=== PATIENT | male | born 1930 | race Caucasian/White ===

== ENCOUNTER 2017-01-31 04:35 | Inpatient (IN) | payer MEDICAID, MEDICARE ==
[2017-01-31] MEDS ORDERED: Albuterol Sulfate 2.5 mg/3 ml Neb ONE (04:55)
[2017-01-31] MEDS ORDERED: Dexamethasone 4 mg/ml Vial ONE ×2 (04:58→05:26)
[2017-01-31] MEDS ORDERED: Magnesium Sulfate 2 GM/100 ML BAG ONE (04:58)
[2017-01-31 05:24] LABS: Sodium 139 mmol/L (135-148)
[2017-01-31 05:24] LABS: #Basophils 0.1 thou/uL (0.0-0.2); #Lymphocytes 1.5 thou/uL (1.20-3.40); #Monocytes 0.7 thou/uL (0.11-0.59); #Neutrophils 3.7 thou/uL (1.40-6.50); %Eosinophils 14.5 % (0.0-10.0); %Lymphocytes 20.9 % (21.0-51.0); %Monocytes 9.7 % (0.0-10.0); Hematocrit 29.7 % (42.0-52.0); Mean Platelet Volume 7.1 fL (7.4-10.4); Red Blood Cell (RBC) Count 3.33 mill/uL (4.70-6.10); White Blood Cell (WBC) Count 6.9 thou/uL (4.8-10.8)
[2017-01-31 05:25] LABS: Mode BIPAP; Modified Allen's Test POSITIVE; Pressure Support 12 cmH2O; Vent NO
[2017-01-31 05:30] LABS: PTT 34.6 SEC (22.9-36.1); Prothrombin Time 14.7 SEC (12.0-14.7)
[2017-01-31 05:43] LABS: ALT (SGPT) 10 U/L (8-55); AST (SGOT) 14 U/L (5-34); Alkaline Phosphatase 65 U/L (40-150); Anion Gap 16 mmol/L (10-20); BUN (Urea Nitrogen) 37 mg/dL (8.4-25.7); Bilirubin, Total 0.5 mg/dL (0.2-1.2); CK (CPK) 80 U/L (30-200); Calc. Creatinine Clearance 0 mL/min (70-130); Carbon Dioxide 23 mmol/L (23-31); Chloride 103 mmol/L (98-107); Estimated GFR-MDRD 34; Lipase 9 U/L (8-78); Protein, Total 7.7 g/dL (5.8-8.1)
[2017-01-31 05:48] LABS: Troponin I 0.032 ng/mL (< 0.028)
[2017-01-31 08:43] LABS: Troponin I 0.028 ng/mL (< 0.028)
--- NOTE | 2017-01-31 09:02 | RAD ---
PORTABLE CHEST: 01/31/2017 PROVIDED CLINICAL HISTORY: Dyspnea. COMPARISON: 08/27/2016 FINDINGS: The cardiac and mediastinal silhouette are unchanged in appearance. Median sternotomy changes are a gain seen. No focal consolidation, pleural fluid, or pneumothorax is apparent. IMPRESSION: No evidence for an acute cardiopulmonary process. POS: OFF
[2017-01-31] MEDS ORDERED: Ondansetron ODT 4 MG TAB PO PRN (11:25)
[2017-01-31] MEDS ORDERED: Senokot 8.6 MG TAB PO PRN (11:25)
[2017-01-31] MEDS ORDERED: Ondansetron HCl/PF 4 MG/2 ML Vial IVP PRN (11:25)
[2017-01-31] MEDS ORDERED: Nitroglycerin 0.4 MG TAB (25 Tab Bottle) PO PRN (11:25)
[2017-01-31] MEDS ORDERED: Artificial Tears 18 DROP/0.9 ML EA EYE PRN (11:30)
[2017-01-31 11:34] LABS: Troponin I 0.048 ng/mL (< 0.028)
[2017-01-31] MEDS ORDERED: Loratadine 10 MG TAB PO PRN (11:35)
[2017-01-31] MEDS ORDERED: Diabetic Tussin 200 MG/10 ML UDCUP PO PRN (11:35)
[2017-01-31] MEDS ORDERED: Eucerin (Mineral Oil/Petrolatum,White) 30 gm Jar TOP PRN (11:35)
--- NOTE | 2017-01-31 11:47 | HP ---
DATE OF ADMISSION: 01/31/2017 PRIMARY CARE PHYSICIAN: Dr. Myers at the [facility]. CHIEF COMPLAINT: Respiratory distress. HISTORY OF PRESENT ILLNESS: Patient is an 87-year-old male with chronic diastolic heart failure, coronary artery disease, and COPD, presented to the emergency room by EMS with the above complaints. At this time, patient is on noninvasive positive pressure ventilation. Not much information is available from the patient. History obtained from the patient and partially from review of old records. Over the last three days, the patient developed gradual worsening shortness of breath along with wheezing. His symptoms continued to progress despite using nebulizer treatments. He denied any orthopnea or leg swelling. No chest pain, palpitations or syncope reported. No fever, chills, or sick contacts reported. He also had some cough productive of thick whitish phlegm. His O2 saturation by EMS was 92% on room air with a pulse rate of 91 with blood pressure of 155/94. The patient was on moderate to severe, respiratory distress requiring noninvasive positive pressure ventilation in the Emergency Room. He received aspirin, Levaquin, magnesium, Decadron and nebulizer treatments in the emergency room. His symptoms have somewhat improved. PAST MEDICAL HISTORY: 1. COPD. 2. Chronic diastolic heart failure with ejection fraction 40%-45%. 3. Moderate to severe mitral regurgitation. 4. Peripheral vascular disease. 5. Chronic atrial fibrillation. 6. History of cerebrovascular accident. 7. GERD. 8. Dementia. 9. Hypertension. 10. Benign prostatic hypertrophy. 11. Coronary artery disease. 12. Hypothyroidism. 13. Chronic anemia. PAST SURGICAL HISTORY: 1. Coronary artery bypass grafting. 2. Right inguinal hernia repair. 3. Cardiac catheterization in 2010. 4. Colonoscopy in 2012. ALLERGIES: Patient is allergic to SIMVASTATIN and EZETIMIBE. CURRENT HOME MEDICATIONS: Patient does not remember any of his home medications. There is no list available from [facility]. SOCIAL HISTORY: He is a former smoker. Currently lives at the [place] [facility]. He denies any current use of alcohol, tobacco or drug use. He makes his own decisions with the help of his family. FAMILY HISTORY: Negative for premature coronary artery disease. REVIEW OF SYSTEMS: Limited due to current respiratory status. Patient is on noninvasive positive pressure ventilation. PHYSICAL EXAMINATION: VITAL SIGNS: As discussed above. He is saturating 99% on noninvasive positive pressure ventilation with blood pressure of 140/58, pulse rate of 71, respiration of 25. GENERAL: An 87-year-old male in mild respiratory distress. His shortness of breath has significantly improved with the above measures. HEENT: Head is atraumatic, normocephalic. Sclerae are anicteric. Moist mucous membranes. No oral lesion. NECK: Supple, no JVD, no neck stiffness. LUNGS: Showed bilateral wheezing with scattered rhonchi. HEART: S1, S2 present. Regular rate and rhythm, no rubs or gallops appreciated. There is 2/6 systolic murmur over the mitral area. ABDOMEN: Soft, nontender, bowel sounds present. EXTREMITIES: Trace edema in bilateral lower extremities. SKIN: Warm and dry. LYMPH NODES: No palpable lymph nodes in the neck. PERIPHERAL VASCULAR: Radial pulses palpable bilaterally. MUSCULOSKELETAL: No joint swelling or tenderness. LABORATORY FINDINGS AND IMAGING: CBC showed WBC 6.9, hemoglobin 9.9, hematocrit 29.7, platelets 183. ABGs showed pH of 7.38, pCO2 44.6, pO2 of 197.9 with bicarbonate of 25.7 on 40% FIO2 noninvasive positive pressure ventilation. Chemistries showed sodium 138, potassium 3.8, chloride 103, bicarbonate 23, BUN 37, creatinine 1.87, glucose 120. Troponins in indeterminate range at 0.032 with CK-MB 1.5. Repeat troponins were normal. BNP was elevated at 143. Baseline creatinine last time was 1.55 with GFR of 43. Chest x-ray by my review showed increase bronchopulmonary markings at the bases. No definite infiltrate was seen. EKG by my review showed sinus rhythm with right bundle branch block with no significant ST-T wave changes. There was left anterior fascicular block. IMPRESSION: 1. Acute hypoxic respiratory failure requiring noninvasive positive pressure ventilation. 2. Acute chronic obstructive pulmonary disease exacerbation. 3. Acute on chronic diastolic heart failure. 4. Chronic kidney disease stage 3. 5. Indeterminate troponins, probably secondary to demand ischemia. 6. Coronary artery disease, status post coronary artery bypass grafting. 7. Chronic anemia. 8. Hypertension. 9. Benign prostatic hypertrophy. 10. Peripheral vascular disease. 11. Paroxysmal atrial fibrillation, currently in sinus rhythm. 12. Gastroesophageal reflux disease. 13. Dementia. 14. Hypothyroidism. 15. Moderate to severe mitral regurgitation. PLAN: The patient will be monitored in the intermediate care unit. If can wean off the noninvasive positive pressure ventilation, we will admit him on telemetry. Gentle diuresis. We will continue nebulizer treatment with steroids and antibiotics. We will assess for home O2 at discharge. We will confirm home medications from the [place] [facility]. Repeat cardiac enzyme was normal. We will repeat labs in a.m. LEVEL OF RISK: High. Plan of care was discussed with the patient. He stated understanding. The patient will require 2-3 days for stabilization. MTDD
[2017-01-31 12:01] LABS: Bilirubin Negative (Negative); Blood, Urine Small (Negative); Glucose, Urine (Dipstick) Negative (Negative); Ketone, Urine Negative (Negative); Nitrite Positive (Negative); Protein, Urine (Dipstick) 30 mg/dL (Neg-Trace); Urobilinogen 0.2 mg/dL (0.2-1.0)
[2017-01-31 12:03] LABS: Bacteria/HPF 4+ HPF (None Seen); Hyaline Casts/LPF 0-3 HYALINE CAST LPF (0-3 Hyaline); Squamous Epithelial 0-3 HPF (0-3)
[2017-01-31] MEDS: Furosemide 20 MG/2 ML VIAL SLOW IVP SCH (13:40)
[2017-01-31] MEDS: Budesonide 0.5 MG/2 ML NEB INH SCH (18:50)
[2017-01-31] MEDS: Simethicone Chewable 80 MG TAB PO SCH ×2 (19:39→21:39)
[2017-01-31] MEDS: Acetaminophen/Codeine 30-300mg Tablet PO PRN (19:47)
[2017-01-31] MEDS: Gabapentin 300 MG CAP PO SCH (20:56)
[2017-01-31] MEDS: Tamsulosin HCl 0.4 MG CAP PO SCH (20:56)
[2017-01-31] MEDS: guaiFENesin ER 600 MG TAB PO SCH (20:56)
[2017-01-31] MEDS: Docusate 100 MG CAP PO SCH (20:56)
[2017-01-31] MEDS: Famotidine 20 MG TAB PO SCH (21:00)
[2017-01-31] MEDS: Polyethylene Glycol 3350 17 GM Packet PO SCH (21:01)
[2017-01-31] MEDS: Acetaminophen 325 MG TAB PO PRN (23:04)
[2017-02-01 05:15] LABS: #Lymphocytes 0.5 thou/uL (1.20-3.40); #Monocytes 0.2 thou/uL (0.11-0.59); #Neutrophils 7.1 thou/uL (1.40-6.50); %Eosinophils 0.1 % (0.0-10.0); %Lymphocytes 6.1 % (21.0-51.0); %Monocytes 2.8 % (0.0-10.0); Hematocrit 26.3 % (42.0-52.0); Mean Platelet Volume 7.6 fL (7.4-10.4); Red Blood Cell (RBC) Count 2.95 mill/uL (4.70-6.10); White Blood Cell (WBC) Count 7.8 thou/uL (4.8-10.8)
[2017-02-01 05:20] LABS: Anion Gap 15 mmol/L (10-20); BUN (Urea Nitrogen) 50 mg/dL (8.4-25.7); BUN/Creatinine Ratio 30.49; Calc. Creatinine Clearance 35 mL/min (70-130); Calcium 8.9 mg/dL (7.8-10.44); Carbon Dioxide 22 mmol/L (23-31); Chloride 103 mmol/L (98-107); Estimated GFR-MDRD 40; Magnesium 2.6 mg/dL (1.6-2.6); Phosphorus 3.6 mg/dL (2.3-4.7)
[2017-02-01] MEDS: Levothyroxine Sodium 25 MCG TAB PO SCH (06:16)
[2017-02-01] MEDS: Furosemide 20 MG/2 ML VIAL SLOW IVP SCH (06:17)
[2017-02-01] MEDS: Enoxaparin Sodium 30 MG/0.3 ML SYRINGE SC SCH (06:17)
[2017-02-01] MEDS: Budesonide 0.5 MG/2 ML NEB INH SCH ×2 (07:39→18:30)
[2017-02-01] MEDS: Acetaminophen 325 MG TAB PO PRN (07:54)
[2017-02-01] MEDS: Gabapentin 300 MG CAP PO SCH ×3 (08:04→21:27)
[2017-02-01] MEDS: Finasteride 5 MG TAB PO SCH (08:05)
[2017-02-01] MEDS: Multivit, Therapeutic 1 TAB PO SCH (08:05)
[2017-02-01] MEDS: guaiFENesin ER 600 MG TAB PO SCH ×2 (08:05→21:28)
[2017-02-01] MEDS: Docusate 100 MG CAP PO SCH ×2 (08:05→21:28)
[2017-02-01] MEDS: Simethicone Chewable 80 MG TAB PO SCH ×4 (08:05→22:53)
[2017-02-01] MEDS: Polyethylene Glycol 3350 17 GM Packet PO SCH ×2 (10:10→21:28)
[2017-02-01] MEDS: Acetaminophen/Codeine 30-300mg Tablet PO PRN (10:27)
--- NOTE | 2017-02-01 11:34 | PQF ---
DATE: 02-01-17 ATTN: DR. ESTEFANIA SIHRLEY Please provide a response below if a more specific term indicating a diagnosis and/or acuity level for this condition can be identified. Please exercise your independent, professional judgment in responding to the clarification form. Clinical indicators are provided at the top of this form for your review. Thank you. [ ] UTI Acuity:[ ] Acute[ ] Chronic[ ] Acute on Chronic Site: [ ] Kidney[ ] Ureter[ ] Bladder[ ] Urethra [ ] Other site [ ] Unable to determine [ ] Does not apply to this patient [ ] Unable to determine [ ] Other diagnosis: The following CLINICAL INDICATORS - SIGNS / SYMPTOMS are present in the medical record: URINALYSIS 01-31-17: URINE PROTEIN: 30 H URINE BLOOD: SMALL H URINE NITRITE: POSITIVE H UR LEUKOCYTE ESTERASE: LARGE H URINE WBC: GREATER THAN 50-TNTC H URINE BACTERIA: 4+ H RISKS: ER DOCUMENTATION: PT IN DIAPER FROM [facility], ON PO LASIX TREATMENT: ER AND MAR ( 02-01-17): LEVAQUIN (This form is maintained as a part of the permanent medical record) 2014 [employer]. All Rights Reserved [email or web address] [email or web address] Office: [phone] Thanks Daren MERCADO
[2017-02-01] MEDS ORDERED: Doxycycline 100 MG CAP PO SCH (12:00)
--- NOTE | 2017-02-01 15:22 | PDOC.PN ---
- Subjective Encounter Start Date: 02/01/17 Encounter Start Time: 11:00 Patient seen and examined. SOB improving. No overnight events - Objective Resuscitation Status: Resuscitation Status FULL:Full Resuscitation MAR Reviewed: Yes Vital Signs & Weight: Vital Signs (12 hours) Temp Pulse Pulse Pulse Pulse Resp BP 02/01/17 13:58 71 15 02/01/17 11:30 67 18 02/01/17 09:43 73 83 90 127/63 02/01/17 08:05 97.9 F 71 16 02/01/17 07:39 71 16 02/01/17 07:35 97.9 F 76 18 02/01/17 04:15 97.8 F 77 16 02/01/17 04:01 BP BP BP Pulse Ox 02/01/17 13:58 99 02/01/17 11:30 114/64 97 02/01/17 09:43 138/66 128/61 02/01/17 08:05 100 02/01/17 07:39 100 02/01/17 07:35 127/72 99 02/01/17 04:15 129/63 98 02/01/17 04:01 99 Weight Admit Weight 177 lb 4.016 oz Weight 185 lb 9.92 oz I&O: 01/31/17 02/01/17 02/02/17 06:59 06:59 06:59 Intake Total 1202.5 Output Total 850 Balance 352.5 Result Diagrams: 02/01/17 04:19 02/02/17 05:01 EKG Reviewed by me: Yes (Tele SR) Phys Exam - Physical Examination Constitutional: NAD Respiratory: no rales, no rhonchi, wheezing present Cardiovascular: RRR, no rub Gastrointestinal: soft, non-tender, positive bowel sounds Musculoskeletal: edema present (LLE > RLE) Neurological: non-focal, moves all 4 limbs Psychiatric: A&O x 3 Dx/Plan - Plan IMPRESSION: 1. Acute hypoxic respiratory failure requiring noninvasive positive pressure ventilation. 2. Acute chronic obstructive pulmonary disease exacerbation. improving 3. Acute on chronic diastolic heart failure. improving 4. Chronic kidney disease stage 3. 5. Indeterminate troponins, probably secondary to demand ischemia. 6. Coronary artery disease, status post coronary artery bypass grafting. 7. UTI. 8. Hypertension. 9. Benign prostatic hypertrophy. 10. Peripheral vascular disease. 11. Paroxysmal atrial fibrillation, currently in sinus rhythm. 12. Gastroesophageal reflux disease. 13. Dementia. 14. Hypothyroidism. 15. Moderate to severe mitral regurgitation. 16. Chronic anemia. 17. Chronic Left heel ulcer Stage 3 - present on admission - Wound care following PLAN: * Cont Atbx/Nebs * Change Lasix to PO * Add urine culture * AM labs * Cont current meds as below * Doppler B/L LE Review of Systems - Review of Systems Constitutional: negative: Fever, Chills, Sweats, Weakness, Malaise, Other Respiratory: Cough, Dry, Wheezing. negative: Shortness of Breath, Hemoptysis, SOB with Excertion, Pleuritic Pain Cardiovascular: negative: Chest Pain, Palpitations, Orthopnea, Paroxysmal Noc. Dyspnea, Edema, Light Headedness, Other Gastrointestinal: negative: Nausea, Vomiting, Abdominal Pain, Diarrhea, Constipation, Melena, Hematochezia, Other Genitourinary: negative: Dysuria, Frequency, Incontinence, Hematuria, Retention , Other - Medications/Allergies Allergies/Adverse Reactions: Allergies Allergy/AdvReac Type Severity Reaction Status Date / Time ezetimibe [From Vytorin] AdvReac Verified 11/23/16 13:14 simvastatin [From Vytorin] AdvReac Verified 11/23/16 13:14 Medications: Current Medications Acetaminophen (Tylenol) 650 mg PO Q4H PRN PRN Reason: Headache/Fever or Pain Last Admin: 02/01/17 07:54 Dose: 650 mg Acetaminophen/Codeine Phosphate (Tylenol #3) 1 tab PO Q6HR PRN PRN Reason: Severe Pain (7-10) Last Admin: 02/01/17 10:27 Dose: 1 tab Albuterol/Ipratropium (Duoneb) 3 ml NEB [id number] RAGHU Last Admin: 02/01/17 13:59 Dose: Not Given Albuterol/Ipratropium (Duoneb) 3 ml NEB Q2H PRN PRN Reason: SOB &/or Wheezing Last Admin: 01/31/17 17:16 Dose: 3 ml Artificial Tears (Tears Naturale) 0 drop EA EYE PRN PRN PRN Reason: Dry Eyes Aspirin (Aspirin Chewable) 81 mg PO DAILY RAGHU Last Admin: 02/01/17 08:05 Dose: 81 mg Budesonide (Pulmicort Neb Solution) 0.5 mg INH BID-RT [facility]AGHU Last Admin: 02/01/17 07:39 Dose: 0.5 mg Docusate Sodium (Colace) 100 mg PO BID [facility] Last Admin: 02/01/17 08:05 Dose: 100 mg Doxycycline Hyclate (Vibramycin) 100 mg PO BID [facility] Enoxaparin Sodium (Lovenox) 30 mg SC 0600 [facility] Last Admin: 02/01/17 06:17 Dose: 30 mg Famotidine (Pepcid) 20 mg PO 2100 [facility] Last Admin: 01/31/17 21:00 Dose: 20 mg Finasteride (Proscar) 5 mg PO DAILY [facility] Last Admin: 02/01/17 08:05 Dose: 5 mg Furosemide (Lasix) 40 mg PO DAILY-AC [facility] Gabapentin (Neurontin) 600 mg PO TID [facility] Last Admin: 02/01/17 14:23 Dose: 600 mg Guaifenesin (Robitussin Sf) 200 mg PO Q4H PRN PRN Reason: Cough Guaifenesin (Mucinex) 600 mg PO Q12HR [facility] Last Admin: 02/01/17 08:05 Dose: 600 mg Hydralazine HCl (Apresoline) 10 mg SLOW IVP Q4H PRN PRN Reason: SBP Greater Than 180 Levofloxacin 500 mg/ Device 100 mls @ 100 mls/hr IVPB 0600 [facility] Last Admin: 02/01/17 06:17 Dose: 100 mls Isosorbide Mononitrate (Imdur Er) 30 mg PO DAILY [facility] Last Admin: 02/01/17 08:04 Dose: 30 mg Levothyroxine Sodium (Synthroid) 25 mcg PO 0600 [facility] Last Admin: 02/01/17 06:16 Dose: 25 mcg Loratadine (Claritin) 10 mg PO DAILYPRN PRN PRN Reason: Sinus Symptoms Methylprednisolone Sodium Succinate (Solu-Medrol) 20 mg IVP Q8HR [facility] Stop: 02/01/17 23:59 Last Admin: 02/01/17 14:23 Dose: 20 mg Mineral Oil/White Petrolatum (Eucerin Cream) 0 gm TOP BIDPRN PRN PRN Reason: Dry Skin Multivitamins (Theragran) 1 tab PO DAILY [facility] Last Admin: 02/01/17 08:05 Dose: 1 tab Nitroglycerin (Nitrostat) 0.4 mg PO Q5MIN PRN PRN Reason: Chest Pain Ondansetron HCl (Zofran Odt) 4 mg PO Q6H PRN PRN Reason: Nausea/Vomiting Ondansetron HCl (Zofran) 4 mg IVP Q6H PRN PRN Reason: Nausea/Vomiting Polyethylene Glycol (Miralax) 17 gm PO BID [facility] Last Admin: 02/01/17 10:10 Dose: 17 gm Prednisone (Prednisone) 20 mg PO [facility]ID[facility] Saccharomyces Boulardii (Florastor) 250 mg PO [facility] Senna (Senokot) 2 tab PO HSPRN PRN PRN Reason: Constipation Simethicone (Mylicon Chewable) [address] [facility] Last Admin: 02/01/17 12:44 Dose: 80 mg Sodium Chloride (Flush - Normal Saline) 10 ml IVF PRN PRN PRN Reason: Saline Flush Last Admin: 01/31/17 13:40 Dose: 10 ml Tamsulosin HCl (Flomax) 0.4 mg PO [facility] Last Admin: 01/31/17 20:56 Dose: 0.4 mg
--- NOTE | 2017-02-01 17:11 | ULT ---
BILATERAL LOWER EXTREMITY VENOUS DOPPLER ULTRASOUND: 02/01/17 HISTORY: Bilateral lower extremity edema. TECHNIQUE: Sethi scale ultrasound with color flow and spectral doppler imaging of the deep venous systems of the lower extremity is performed bilaterally. FINDINGS: There is good flow, compression, and augmentation noted in the common femoral, femoral, deep femoral , popliteal, posterior tibial, and greater saphenous veins on either side. IMPRESSION: No evidence of DVT in either lower extremity. POS: [place]
[2017-02-01] MEDS: Doxycycline 100 MG CAP PO SCH (21:27)
[2017-02-01] MEDS: Saccharomyces boulardii 250 MG CAP PO SCH (21:27)
[2017-02-01] MEDS: Famotidine 20 MG TAB PO SCH (21:27)
[2017-02-01] MEDS: Tamsulosin HCl 0.4 MG CAP PO SCH (21:28)
[2017-02-02] MEDS: Levothyroxine Sodium 25 MCG TAB PO SCH (05:20)
[2017-02-02] MEDS: Enoxaparin Sodium 30 MG/0.3 ML SYRINGE SC SCH (05:20)
[2017-02-02 06:05] LABS: Anion Gap 11 mmol/L (10-20); BUN (Urea Nitrogen) 49 mg/dL (8.4-25.7); BUN/Creatinine Ratio 30.63; Calc. Creatinine Clearance 37 mL/min (70-130); Calcium 8.9 mg/dL (7.8-10.44); Carbon Dioxide 25 mmol/L (23-31); Chloride 103 mmol/L (98-107); Estimated GFR-MDRD 41; Phosphorus 3.2 mg/dL (2.3-4.7)
[2017-02-02] MEDS: Budesonide 0.5 MG/2 ML NEB INH SCH ×2 (07:00→18:13)
[2017-02-02] MEDS: Furosemide 40 MG TAB PO SCH (08:29)
[2017-02-02] MEDS: predniSONE 20 MG TAB PO SCH ×2 (08:30→17:45)
[2017-02-02] MEDS: Multivit, Therapeutic 1 TAB PO SCH (08:30)
[2017-02-02] MEDS: Polyethylene Glycol 3350 17 GM Packet PO SCH ×2 (08:30→20:58)
[2017-02-02] MEDS: Finasteride 5 MG TAB PO SCH (08:31)
[2017-02-02] MEDS: guaiFENesin ER 600 MG TAB PO SCH ×2 (08:31→20:57)
[2017-02-02] MEDS: Gabapentin 300 MG CAP PO SCH ×3 (08:31→20:57)
[2017-02-02] MEDS: Simethicone Chewable 80 MG TAB PO SCH ×4 (08:31→21:02)
[2017-02-02] MEDS: Docusate 100 MG CAP PO SCH ×2 (08:31→20:57)
[2017-02-02] MEDS: Doxycycline 100 MG CAP PO SCH ×2 (08:31→20:57)
--- NOTE | 2017-02-02 09:53 | PQF ---
DATE: 02-02-17 ATTN: DR. ESTEFANIA SHIRLEY Please provide a response below if a more specific term indicating a diagnosis and/or acuity level for this condition can be identified. Please exercise your independent, professional judgment in responding to the clarification form. I (concur) with the Wound Care findings as stated above. [ ] Decubitus Pressure Ulcer [ ] Stasis Ulcer [ ] Gangrene present [ ] Yes [ ] No [ ] No decubitus or pressure ulcer diagnosis [ ] Deep tissue injury [ ] Unstageable / Unable to determine [ ] Does not apply to this patient [ ] Other diagnosis: The following CLINICAL INDICATORS - SIGNS / SYMPTOMS are present in the medical record: PN DR. SHIRLEY 02-01-17: CHRONIC LEFT HEEL ULCER-WOUND CARE FOLLOWING WOUND CARE ASSESSMENT: HEALING STAGE 3 PRESSURE ULCER TO L HEEL RISKS: *ER DOCUMENTATION: FROM INTERMEDIATE * H&P: HX OF CVA, COPD, DEMENTIA * WOUND CARE CONSULT 02-01-17: IMMOBILITY, PVD, TREATMENTS: WOUND CARE CONSULT 02-01-17: LOW AIR LOSS MATTRESS, DRESSING CHANGES, WOUND IRRIGATION/CLEANING (This form is maintained as a part of the permanent medical record) 2014 [employer]. All Rights Reserved [email or web address] [email or web address] Office: [phone] Thanks Daren MERCADO
[2017-02-02] MEDS ORDERED: Diabetic Tussin 200 MG/10 ML UDCUP PO PRN (13:38)
--- NOTE | 2017-02-02 13:39 | PDOC.PN ---
- Subjective Encounter Start Date: 02/02/17 Encounter Start Time: 11:30 Patient seen and examined. No new complaints. No overnight events. SOB improving. - Objective Resuscitation Status: Resuscitation Status FULL:Full Resuscitation MAR Reviewed: Yes Vital Signs & Weight: Vital Signs (12 hours) Temp Pulse Pulse Pulse Resp BP BP 02/02/17 12:00 97.9 F 67 20 02/02/17 10:25 67 16 02/02/17 08:36 81 70 145/78 H 122/69 02/02/17 08:00 97.4 F L 64 14 02/02/17 07:36 97.4 F L 64 14 02/02/17 07:00 71 16 02/02/17 05:05 02/02/17 04:00 02/02/17 02:40 70 18 BP Pulse Ox Pulse Ox Pulse Ox 02/02/17 12:00 124/63 98 02/02/17 10:25 100 02/02/17 08:36 94 L 99 02/02/17 08:00 02/02/17 07:36 126/62 99 02/02/17 07:00 100 02/02/17 05:05 99 02/02/17 04:00 131/65 65 L 02/02/17 02:40 99 Weight Admit Weight 177 lb 4.016 oz Weight 185 lb 6.4 oz I&O: 02/01/17 02/02/17 02/03/17 06:59 06:59 06:59 Intake Total 1202.5 2000 240 Output Total 850 1375 Balance 352.5 625 240 Result Diagrams: 02/01/17 04:19 02/02/17 05:01 Radiology Reviewed by me: No (Doppler - neg) EKG Reviewed by me: Yes (Tele SR) Phys Exam - Physical Examination Constitutional: NAD Respiratory: no wheezing, no rales Scat rhonchi Cardiovascular: RRR, no rub Gastrointestinal: soft, non-tender, positive bowel sounds Musculoskeletal: edema present (LLE) Neurological: non-focal, moves all 4 limbs Dx/Plan - Plan IMPRESSION: 1. Acute hypoxic respiratory failure requiring noninvasive positive pressure ventilation. 2. Acute chronic obstructive pulmonary disease exacerbation. improving 3. Acute on chronic diastolic heart failure. improving 4. Chronic kidney disease stage 3. 5. Indeterminate troponins, probably secondary to demand ischemia. 6. Coronary artery disease, status post coronary artery bypass grafting. 7. UTI. GNR on urine culture. Sens pending. Blood Cultures negative 8. Hypertension. 9. Benign prostatic hypertrophy. 10. Peripheral vascular disease. 11. Paroxysmal atrial fibrillation, currently in sinus rhythm. 12. Gastroesophageal reflux disease. 13. Dementia. 14. Hypothyroidism. 15. Moderate to severe mitral regurgitation. 16. Chronic anemia. 17. Chronic Left heel ulcer Stage 3 - present on admission - Wound care following PLAN: * Await urine cultures * Cont Atbx/Nebs/Mucolytics * Cont Lasix * Cont current meds as below * Doppler B/L LE - negative for DVT Review of Systems - Review of Systems Constitutional: negative: Fever, Chills, Sweats, Weakness, Malaise, Other Respiratory: Cough, Dry, SOB with Excertion. negative: Shortness of Breath, Hemoptysis, Pleuritic Pain, Sputum, Wheezing Cardiovascular: negative: Chest Pain, Palpitations, Orthopnea, Paroxysmal Noc. Dyspnea, Edema, Light Headedness, Other Gastrointestinal: negative: Nausea, Vomiting, Abdominal Pain, Diarrhea, Constipation, Melena, Hematochezia, Other - Medications/Allergies Allergies/Adverse Reactions: Allergies Allergy/AdvReac Type Severity Reaction Status Date / Time ezetimibe [From Vytorin] AdvReac Verified 11/23/16 13:14 simvastatin [From Vytorin] AdvReac Verified 11/23/16 13:14 Medications: Current Medications Acetaminophen (Tylenol) 650 mg PO Q4H PRN PRN Reason: Headache/Fever or Pain Last Admin: 02/01/17 07:54 Dose: 650 mg Acetaminophen/Codeine Phosphate (Tylenol #3) 1 tab PO Q6HR PRN PRN Reason: Severe Pain (7-10) Last Admin: 02/01/17 10:27 Dose: 1 tab Albuterol/Ipratropium (Duoneb) 3 ml NEB [id number] [facility]AGHU Last Admin: 02/02/17 10:25 Dose: 3 ml Albuterol/Ipratropium (Duoneb) 3 ml NEB Q2H PRN PRN Reason: SOB &/or Wheezing Last Admin: 01/31/17 17:16 Dose: 3 ml Artificial Tears (Tears Naturale) 0 drop EA EYE PRN PRN PRN Reason: Dry Eyes Aspirin (Aspirin Chewable) 81 mg PO DAILY [facility] Last Admin: 02/02/17 08:31 Dose: 81 mg Budesonide (Pulmicort Neb Solution) 0.5 mg INH BID-RT [facility] Last Admin: 02/02/17 07:00 Dose: 0.5 mg Docusate Sodium (Colace) 100 mg PO BID [facility] Last Admin: 02/02/17 08:31 Dose: 100 mg Doxycycline Hyclate (Vibramycin) 100 mg PO BID [facility] Last Admin: 02/02/17 08:31 Dose: 100 mg Famotidine (Pepcid) 20 mg PO 2100 [facility] Last Admin: 02/01/17 21:27 Dose: 20 mg Finasteride (Proscar) 5 mg PO DAILY [facility] Last Admin: 02/02/17 08:31 Dose: 5 mg Furosemide (Lasix) 40 mg PO DAILY-AC [facility] Last Admin: 02/02/17 08:29 Dose: 40 mg Gabapentin (Neurontin) 600 mg PO TID [facility] Last Admin: 02/02/17 08:31 Dose: 600 mg Guaifenesin (Robitussin Sf) 200 mg PO Q4H PRN PRN Reason: Cough Last Admin: 02/02/17 05:23 Dose: 200 mg Guaifenesin (Mucinex) 600 mg PO Q12HR [facility] Last Admin: 02/02/17 08:31 Dose: 600 mg Hydralazine HCl (Apresoline) 10 mg SLOW IVP Q4H PRN PRN Reason: SBP Greater Than 180 Isosorbide Mononitrate (Imdur Er) 30 mg PO DAILY [facility] Last Admin: 02/02/17 08:31 Dose: 30 mg Levofloxacin (Levaquin) 500 mg PO 0600 [facility] Levothyroxine Sodium (Synthroid) 25 mcg PO 0600 [facility] Last Admin: 02/02/17 05:20 Dose: 25 mcg Loratadine (Claritin) 10 mg PO DAILYPRN PRN PRN Reason: Sinus Symptoms Mineral Oil/White Petrolatum (Eucerin Cream) 0 gm TOP BIDPRN PRN PRN Reason: Dry Skin Multivitamins (Theragran) 1 tab PO DAILY [facility] Last Admin: 02/02/17 08:30 Dose: 1 tab Nitroglycerin (Nitrostat) 0.4 mg PO Q5MIN PRN PRN Reason: Chest Pain Ondansetron HCl (Zofran Odt) 4 mg PO Q6H PRN PRN Reason: Nausea/Vomiting Ondansetron HCl (Zofran) 4 mg IVP Q6H PRN PRN Reason: Nausea/Vomiting Polyethylene Glycol (Miralax) 17 gm PO BID [facility] Last Admin: 02/02/17 08:30 Dose: 17 gm [facility]) [facility] Last Admin: 02/02/17 08:30 Dose: 20 mg Saccharomyces Boulardii (Florastor) 250 mg PO [facility] Last Admin: 02/01/17 21:27 Dose: 250 mg Senna (Senokot) 2 tab PO HSPRN PRN PRN Reason: Constipation Simethicone (Mylicon Chewable) 80 mg PO [facility] Last Admin: 02/02/17 08:31 Dose: 80 mg Sodium Chloride (Flush - Normal Saline) 10 ml IVF PRN PRN PRN Reason: Saline Flush Last Admin: 01/31/17 13:40 Dose: 10 ml Tamsulosin HCl (Flomax) 0.4 mg PO [facility] Last Admin: 02/01/17 21:28 Dose: 0.4 mg
[2017-02-02 14:43] VITALS: BMI 28.1
[2017-02-02] MEDS: Saccharomyces boulardii 250 MG CAP PO SCH (20:57)
[2017-02-02] MEDS: Tamsulosin HCl 0.4 MG CAP PO SCH (20:57)
[2017-02-02] MEDS: Famotidine 20 MG TAB PO SCH (20:57)
[2017-02-03] MEDS: Levothyroxine Sodium 25 MCG TAB PO SCH (05:29)
[2017-02-03 06:15] LABS: Anion Gap 13 mmol/L (10-20); BUN (Urea Nitrogen) 45 mg/dL (8.4-25.7); Calc. Creatinine Clearance 41 mL/min (70-130); Calcium 8.9 mg/dL (7.8-10.44); Carbon Dioxide 23 mmol/L (23-31); Chloride 105 mmol/L (98-107); Estimated GFR-MDRD 44; Phosphorus 3.4 mg/dL (2.3-4.7)
[2017-02-03] MEDS: Budesonide 0.5 MG/2 ML NEB INH SCH ×2 (06:49→18:12)
[2017-02-03] MEDS: Docusate 100 MG CAP PO SCH (08:09)
[2017-02-03] MEDS: Polyethylene Glycol 3350 17 GM Packet PO SCH ×2 (08:09→21:11)
[2017-02-03] MEDS: guaiFENesin ER 600 MG TAB PO SCH ×2 (08:09→21:11)
[2017-02-03] MEDS: Multivit, Therapeutic 1 TAB PO SCH (08:09)
[2017-02-03] MEDS: Doxycycline 100 MG CAP PO SCH ×2 (08:09→21:11)
[2017-02-03] MEDS: Simethicone Chewable 80 MG TAB PO SCH ×4 (08:09→21:11)
[2017-02-03] MEDS: Finasteride 5 MG TAB PO SCH (08:09)
[2017-02-03] MEDS: predniSONE 20 MG TAB PO SCH ×2 (08:10→17:59)
[2017-02-03] MEDS: Gabapentin 300 MG CAP PO SCH ×3 (08:10→21:11)
[2017-02-03] MEDS: Furosemide 40 MG TAB PO SCH (08:10)
[2017-02-03] MEDS: Meropenem 1 GM in Sodium Chloride 0.9% 100 ML IVPB SCH (12:08)
--- NOTE | 2017-02-03 16:43 | PDOC.PN ---
- Subjective Encounter Start Date: 02/03/17 Encounter Start Time: 16:00 Patient seen and examined. No new complaints. No overnight events - Objective Resuscitation Status: Resuscitation Status FULL:Full Resuscitation MAR Reviewed: Yes Vital Signs & Weight: Vital Signs (12 hours) Temp Pulse Pulse Resp BP BP Pulse Ox 02/03/17 15:41 97.7 F 65 16 100/49 L 99 02/03/17 14:42 64 16 98 02/03/17 13:34 67 119/61 02/03/17 12:00 97.6 F 63 14 103/55 L 97 02/03/17 10:29 67 20 98 02/03/17 08:00 97.9 F 67 18 141/69 H 98 02/03/17 06:49 64 20 98 02/03/17 06:48 64 20 98 Weight Admit Weight 177 lb 4.016 oz Weight 190 lb 7.67 oz I&O: 02/02/17 02/03/17 02/04/17 06:59 06:59 06:59 Intake Total 1999 1676 600 Output Total 1375 1800 Balance 625 -124 600 Result Diagrams: 02/01/17 04:19 02/03/17 05:17 EKG Reviewed by me: Yes (Tele SR) Phys Exam - Physical Examination Constitutional: NAD Respiratory: no wheezing, no rales Scat rhonchi Cardiovascular: RRR, no rub Gastrointestinal: soft, non-tender, positive bowel sounds Neurological: non-focal, moves all 4 limbs Psychiatric: A&O x 3 Dx/Plan - Plan cont current plan of care, continue antibiotics (Change to Meropenem), PT/OT, DVT proph w/lovenox, DVT proph w/SCDs IMPRESSION: 1. Acute hypoxic respiratory failure requiring noninvasive positive pressure ventilation. 2. Acute chronic obstructive pulmonary disease exacerbation. improving 3. Acute on chronic diastolic heart failure. improving 4. Chronic kidney disease stage 3. 5. Indeterminate troponins, probably secondary to demand ischemia. 6. Coronary artery disease, status post coronary artery bypass grafting. 7. ESBL UTI. Blood Cultures negative 8. Hypertension. 9. Benign prostatic hypertrophy. 10. Peripheral vascular disease. 11. Paroxysmal atrial fibrillation, currently in sinus rhythm. 12. Gastroesophageal reflux disease. on Pepcid 13. Dementia. 14. Hypothyroidism. 15. Moderate to severe mitral regurgitation. 16. Chronic anemia. 17. Chronic Left heel ulcer Stage 3 - present on admission - Wound care following PLAN: * Consult ID * Change Atbx to Meropenem * Cont Atbx/Nebs/Mucolytics * Cont Lasix 40 mg daily * Cont current meds as below . Review of Systems - Review of Systems Constitutional: negative: Fever, Chills, Sweats, Weakness, Malaise, Other Respiratory: Cough, Sputum. negative: Dry, Shortness of Breath, Hemoptysis, SOB with Excertion, Pleuritic Pain, Wheezing Cardiovascular: negative: Chest Pain, Palpitations, Orthopnea, Paroxysmal Noc. Dyspnea, Edema, Light Headedness, Other Gastrointestinal: negative: Nausea, Vomiting, Abdominal Pain, Diarrhea, Constipation, Melena, Hematochezia, Other - Medications/Allergies Allergies/Adverse Reactions: Allergies Allergy/AdvReac Type Severity Reaction Status Date / Time ezetimibe [From Vytorin] AdvReac Verified 11/23/16 13:14 simvastatin [From Vytorin] AdvReac Verified 11/23/16 13:14 Medications: Current Medications Acetaminophen (Tylenol) 650 mg PO Q4H PRN PRN Reason: Headache/Fever or Pain Last Admin: 02/01/17 07:54 Dose: 650 mg Acetaminophen/Codeine Phosphate (Tylenol #3) 1 tab PO Q6HR PRN PRN Reason: Severe Pain (7-10) Last Admin: 02/01/17 10:27 Dose: 1 tab Albuterol/Ipratropium (Duoneb) 3 ml NEB [id number] [facility] Last Admin: 02/03/17 14:42 Dose: 3 ml Albuterol/Ipratropium (Duoneb) 3 ml NEB Q2H PRN PRN Reason: SOB &/or Wheezing Last Admin: 01/31/17 17:16 Dose: 3 ml Artificial Tears (Tears Naturale) 0 drop EA EYE PRN PRN PRN Reason: Dry Eyes Aspirin (Aspirin Chewable) 81 mg PO DAILY [facility] Last Admin: 02/03/17 08:09 Dose: 81 mg Budesonide (Pulmicort Neb Solution) 0.5 mg INH BID-RT [facility] Last Admin: 02/03/17 06:49 Dose: 0.5 mg Doxycycline Hyclate (Vibramycin) 100 mg PO BID [facility] Last Admin: 02/03/17 08:09 Dose: 100 mg Enoxaparin Sodium (Lovenox) 30 mg SC 2100 [facility] Famotidine (Pepcid) 20 mg PO 2100 [facility] Last Admin: 02/02/17 20:57 Dose: 20 mg Finasteride (Proscar) 5 mg PO DAILY [facility] Last Admin: 02/03/17 08:09 Dose: 5 mg Furosemide (Lasix) 40 mg PO DAILY-AC [facility] Last Admin: 02/03/17 08:10 Dose: 40 mg Gabapentin (Neurontin) 600 mg PO TID [facility] Last Admin: 02/03/17 14:51 Dose: 600 mg Guaifenesin (Mucinex) 600 mg PO Q12HR [facility] Last Admin: 02/03/17 08:09 Dose: 600 mg Guaifenesin (Robitussin Sf) 200 mg PO Q4H PRN PRN Reason: Cough Hydralazine HCl (Apresoline) 10 mg SLOW IVP Q4H PRN PRN Reason: SBP Greater Than 180 Meropenem 1 gm/ Sodium (Chloride) 100 mls @ 200 mls/hr IVPB 1200,2359 [facility] Last Admin: 02/03/17 12:08 Dose: 100 mls Isosorbide Mononitrate (Imdur Er) 30 mg PO DAILY [facility] Last Admin: 02/03/17 08:09 Dose: 30 mg Levothyroxine Sodium (Synthroid) 25 mcg PO 0600 [facility] Last Admin: 02/03/17 05:29 Dose: 25 mcg Loratadine (Claritin) 10 mg PO DAILYPRN PRN PRN Reason: Sinus Symptoms Mineral Oil/White Petrolatum (Eucerin Cream) 0 gm TOP BIDPRN PRN PRN Reason: Dry Skin Miscellaneous Medication (Pharmacy To Dose) 1 each IVPB PRN PRN PRN Reason: Pharmacy to dose Multivitamins (Theragran) 1 tab PO DAILY [facility] Last Admin: 02/03/17 08:09 Dose: 1 tab Nitroglycerin (Nitrostat) 0.4 mg PO Q5MIN PRN PRN Reason: Chest Pain Ondansetron HCl (Zofran Odt) 4 mg PO Q6H PRN PRN Reason: Nausea/Vomiting Ondansetron HCl (Zofran) 4 mg IVP Q6H PRN PRN Reason: Nausea/Vomiting Polyethylene Glycol (Miralax) 17 gm PO BID [facility] Last Admin: 02/03/17 08:09 Dose: 17 gm Prednisone (Prednisone) 20 mg PO BID[facility] Last Admin: 02/03/17 08:10 Dose: 20 mg Saccharomyces Boulardii (Florastor) 250 mg PO [facility] Last Admin: 02/02/17 20:57 Dose: 250 mg Senna (Senokot) 2 tab PO HSPRN PRN PRN Reason: Constipation Senna/Docusate Sodium (Senokot S) 1 tab PO BID [facility] Simethicone (Mylicon Chewable) 80 mg PO [facility] Last Admin: 02/03/17 12:08 Dose: 80 mg Sodium Chloride (Flush - Normal Saline) 10 ml IVF PRN PRN PRN Reason: Saline Flush Last Admin: 02/03/17 08:12 Dose: 10 ml Tamsulosin HCl (Flomax) 0.4 mg PO [facility] Last Admin: 02/02/17 20:57 Dose: 0.4 mg
[2017-02-03] MEDS ORDERED: Enoxaparin Sodium 30 MG/0.3 ML SYRINGE SC SCH (21:00)
[2017-02-03] MEDS: Famotidine 20 MG TAB PO SCH (21:11)
[2017-02-03] MEDS: Tamsulosin HCl 0.4 MG CAP PO SCH (21:11)
[2017-02-03] MEDS: Saccharomyces boulardii 250 MG CAP PO SCH (21:11)
[2017-02-03] MEDS: Senokot S 8.6-50 MG TAB PO SCH (21:11)
[2017-02-04] MEDS: Meropenem 1 GM in Sodium Chloride 0.9% 100 ML IVPB SCH ×2 (00:52→14:15)
[2017-02-04] MEDS: Levothyroxine Sodium 25 MCG TAB PO SCH (05:14)
[2017-02-04] MEDS: Budesonide 0.5 MG/2 ML NEB INH SCH (06:46)
[2017-02-04] MEDS: Furosemide 40 MG TAB PO SCH (08:31)
[2017-02-04] MEDS: Multivit, Therapeutic 1 TAB PO SCH (08:32)
[2017-02-04] MEDS: Doxycycline 100 MG CAP PO SCH (08:32)
[2017-02-04] MEDS: predniSONE 20 MG TAB PO SCH (08:32)
[2017-02-04] MEDS: guaiFENesin ER 600 MG TAB PO SCH (08:32)
[2017-02-04] MEDS: Simethicone Chewable 80 MG TAB PO SCH ×2 (08:32→14:14)
[2017-02-04] MEDS: Gabapentin 300 MG CAP PO SCH ×2 (08:32→14:15)
[2017-02-04] MEDS: Senokot S 8.6-50 MG TAB PO SCH (08:32)
[2017-02-04] MEDS: Finasteride 5 MG TAB PO SCH (08:32)
[2017-02-04] MEDS: Polyethylene Glycol 3350 17 GM Packet PO SCH (08:32)
--- NOTE | 2017-02-04 15:20 | CON ---
DATE OF CONSULTATION: 02/04/2017 REASON FOR CONSULTATION: Evaluate the findings in the urinary tract. HISTORY OF PRESENT ILLNESS: An 87-year-old admitted with respiratory distress. Patient has a history of CHF with diastolic dysfunction, COPD, and has had a number of previous admissions for management of various symptoms associated with the cardiomyopathy and lung disease in the recent past. In 02/2016, he was diagnosed with sepsis associated with a urinary tract infection. The patient did have a Varela catheter in place at that time and consultation with Urology had been obtained. Dr. Vu evaluated the patient, his assessment was catheter trauma and BPH. His Varela catheter was changed to allow irrigation. At that time, I had seen him once in 2016 with bacteremia secondary to E. coli. He did have abnormal urinalysis. The next few admissions included 3 recent, once for decompensation of his respiratory status and this time he was admitted on 01/31/2017, with worsening dyspnea with wheezing, no reported fever or chill, little bit of cough. O2 sats on arrival was 92%. BP 150/90, pulse 91. He appeared in moderate to severe distress and noninvasive ventilation was initiated in the emergency room. He was given Decadron and nebulizer treatments. Initial white cell count 6.9, hemoglobin 9.9 , platelets 183 with 53% neutrophils. INR 1.1, sodium was 138, and creatinine 1.87. Liver profile was normal. BNP 143 with albumin 3.7. Microbiology with negative blood cultures, influenza A and B were negative and he had a positive urine culture with greater than 100,000 E. coli with an ESBL phenotype. The urinalysis was abnormal with greater than 50 WBCs. No imaging studies have been done. Currently, patient is sitting up, getting some physical therapy. He denies headaches, no change in visual symptoms, sore throat, odynophagia, dysphagia. Dyspnea has improved markedly. No chest pain, no abdominal pain. He does not have a Varela catheter. He was not sure about the voiding function if he still had the urine leftover or not. No diarrhea. PAST MEDICAL HISTORY: COPD, CHF with diastolic dysfunction, mitral regurgitation, peripheral vascular disease, atrial fibrillation, prior CVA, dementia, BPH, prior episodes of UTI x2. Proteus and E. coli each one of them possible prostatitis. Episode of hematuria, which was likely secondary to catheter trauma and hypothyroidism. PAST SURGICAL HISTORY: Bypass graft surgery, hernia repair, colonoscopy. ALLERGIES: SIMVASTATIN, ZETIA. MEDICATIONS: Current medicines include Tylenol, DuoNeb, Pulmicort, doxycycline , Lovenox, Pepcid, Proscar, Lasix, Neurontin, Apresoline, levothyroxine and meropenem. PHYSICAL EXAMINATION: VITAL SIGNS: Temperature has been within normal limits during the hospital stay. Blood pressure 130/70, pulse 60, respirations 16, O2 sat 99%. There is no distress. SKIN: Area of abrasion on the left prepatellar skin region. A little area of ulceration in the lateral aspect of the left heel and a little excoriation in the base of the scalp, left side, right above the ear, left ear. No lymphadenopathy. HEENT: Ocular movements are conjugate. Sclerae white. Pupils are equal. Oral cavity with only few remaining teeth. No other abnormalities. Some jugular vein distention. NECK: Supple. LUNGS: Symmetric, but diminished breath sounds particularly at the bases. No wheezing. HEART: S1, S2 with regular rate. No obvious murmurs. No S3. ABDOMEN: Slightly distended, question of bladder distention. : No genital abnormalities. EXTREMITIES: No joint inflammatory process noted. Pulses are 1+ in dorsalis pedis. No edema. NEUROLOGIC: Plantar responses are flexor. He is awake, knows his name and knew he was in the hospital, he was able to follow commands, limited short and long-term recall. LABORATORY DATA: Labs have been reviewed above. The latest white cell count 7.8 with 91% neutrophils and sodium 137, creatinine 1.5, glucose 138. ASSESSMENT: 1. Diastolic dysfunction, congestive heart failure. 2. Chronic obstructive pulmonary disease with a recent decompensation. 3. Some element of dementia secondary to vascular disease. 4. Benign prostatic hypertrophy with episodes of urinary tract infection. 5. Cystitis and possible associated prostatitis. 6. Extended-spectrum beta-lactamase positive organism. 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 He has thickened bladder see , which are indicative of the obstruction of the outflow tract. We will evaluate postvoid residual and consider continuing outpatient treatment with fosfomycin given one sachet every third day x5 doses. Followup urine culture and urinalysis. If there is a large postvoid residual, then we will have to address that with either in and out catheterization or suprapubic catheter placement, but hopefully the residual will be low. MTDD
[2017-02-04 15:51] VITALS: BP 107/50; TEMP 98
--- NOTE | 2017-02-04 20:33 | DIS ---
DATE OF DISCHARGE: 02/04/2017 DISCHARGE DISPOSITION: To [facility]. ALLERGIES: The patient is allergic to SIMVASTATIN and EZETIMIBE. DISCHARGE MEDICATIONS: 1. Tylenol No. 3 as needed. 2. Albuterol inhaler as needed. 3. Vitamin C 500 mg b.i.d. 4. Aspirin 81 mg daily. 5. D-Mannose 4 capsules daily. 6. Doxycycline 100 mg b.i.d. for the next 5 days. 7. Ferrous sulfate 325 mg daily. 8. Proscar 5 mg daily. 9. Lasix 40 mg daily. 10. Gabapentin 600 mg three times daily. 11. DuoNeb as needed. 12. Imdur ER 30 mg daily. 13. Levothyroxine 25 mcg daily. 14. Magnesium oxide 400 mg daily. 15. Multivitamin 1 tablet daily. 16. MiraLax 17 grams b.i.d. 17. Simethicone 80 mg as needed. 18. Flomax 0.4 mg daily. 19. Mucinex 600 mg b.i.d. for 1 week. 20. Prednisone 10 mg b.i.d. for the next 5 days, then stop. INPATIENT CONSULTANTS: None. BRIEF HOSPITAL COURSE: The patient is an 87-year-old male with COPD. Currently, residing at [facility] under the care of Dr. Myers, who presented to the hospital with respiratory distress. The patient was placed on noninvasive positive pressure ventilation due to moderate to severe respirator y distress. Please refer to the history and physical dated 01/31/2017 for further details. The patient was admitted to the hospital with the diagnosis of acute hypoxic respiratory failure, re quiring noninvasive positive pressure ventilation. He was monitored in the intermediate care unit i nitially and was transitioned to regular floor. His workup was consistent with acute COPD exacerbat ion with acute on chronic diastolic heart failure. He showed good improvement with nebulizer treatm ent, antibiotics, steroids, and diuretics. His diuretic dose has been changed to oral. He was exte nsively counseled on heart failure. The patient complained of dysuria with urinalysis showing greater than 50 WBCs with 4+ bacteria. Ur ine culture showed Escherichia coli ESBL positive. The patient was evaluated by Dr. Lopez. His pos tvoid residual was less than 200. Per Dr. Lopez, the patient will be started on fosfomycin 3 grams every 3 days for 5 doses. FINAL DIAGNOSES: 1. Acute hypoxic respiratory failure, requiring noninvasive positive pressure ventilation. 2. Acute chronic obstructive pulmonary disease exacerbation. 3. Acute on chronic diastolic heart failure. 4. Chronic kidney disease, stage 3. 5. ESBL Escherichia coli urinary tract infection. 6. Indeterminate troponins, probably secondary to demand ischemia. 7. Coronary artery disease, status post coronary artery bypass grafting. 8. Hypertension. 9. Benign prostatic hypertrophy. 10. Peripheral vascular disease. 11. Paroxysmal atrial fibrillation, currently in sinus rhythm. 12. Gastroesophageal reflux disease. 13. Dementia. 14. Hypothyroidism. 15. Chronic left heel stage III ulcer present on admission, followed by Wound Care. 16. Chronic anemia. 17. Moderate to severe mitral regurgitation. 18. Hypothyroidism. 19. Mild hyponatremia. 20. Indeterminate troponins, probably secondary to demand ischemia. 21. STATINS allergy. Plan of care was discussed with the patient. He stated understanding. Total time coordinating the discharge of this patient was 38 minutes.
== END 2017-02-04 17:21 | DRG 291 ==
LOC: ERS 04:35 → ERHOLD 06:03 → IMCU/EMU 12:00 → 2SE 02-01 01:01
PROVIDERS: ADMIT Internal Medicine; ATTEND Internal Medicine
PROC: 5A09357 Assistance with Respiratory Ventilation, Less than 24 Consecutive Hours, Continuous Positive Airway Pressure (ICD-10-PCS; principal; 2017-01-31)
DX: I13.0 Hypertensive heart and chronic kidney disease with heart failure and stage 1 through stage 4 chronic kidney disease, or unspecified chronic kidney disease (principal); J96.01 Acute respiratory failure with hypoxia; I50.33 Acute on chronic diastolic (congestive) heart failure; I24.8 Other forms of acute ischemic heart disease; J44.1 Chronic obstructive pulmonary disease with (acute) exacerbation; E87.1 Hypo-osmolality and hyponatremia; N39.0 Urinary tract infection, site not specified; L97.421 Non-pressure chronic ulcer of left heel and midfoot limited to breakdown of skin; N18.3 Chronic kidney disease, stage 3 (moderate); B96.20 Unspecified Escherichia coli [E. coli] as the cause of diseases classified elsewhere; Z16.12 Extended spectrum beta lactamase (ESBL) resistance; I25.10 Atherosclerotic heart disease of native coronary artery without angina pectoris; Z95.1 Presence of aortocoronary bypass graft; I48.0 Paroxysmal atrial fibrillation; K21.9 Gastro-esophageal reflux disease without esophagitis; E03.9 Hypothyroidism, unspecified; I73.9 Peripheral vascular disease, unspecified; I34.0 Nonrheumatic mitral (valve) insufficiency; Z88.8 Allergy status to other drugs, medicaments and biological substances; I48.2 Chronic atrial fibrillation; Z86.73 Personal history of transient ischemic attack (TIA), and cerebral infarction without residual deficits; F01.50 Vascular dementia, unspecified severity, without behavioral disturbance, psychotic disturbance, mood disturbance, and anxiety; N40.1 Benign prostatic hyperplasia with lower urinary tract symptoms; D50.9 Iron deficiency anemia, unspecified
CPT/HCPCS: 36415; 71010; 80053; 80069; 81003; 81015; 82550; 82553; 82805; 83605; 83690; 83735; 83880; 84484; 85025; 85610; 85730; 87040; 87077; 87086; 87186; 93005; 93798; 93970; 94640; 94644; 94660; 94760; 96365; 96366; 96367; 96375; G8978-GP-CJ; G8979-GP-CI; G8987-GO-CL; G8988-GO-CJ; J1100; J1650; J1940; J1956; J2185; J2920; J3475; J7050; J7506; J7611; J7620; J7626

== ENCOUNTER 2017-03-13 10:18 | Emergency (ER) | payer MEDICARE, MEDICAID ==
[2017-03-13] MEDS ORDERED: Bacitracin Zinc 1 Packet ONE ×2 (11:14→12:54)
[2017-03-13 11:15] LABS: #Basophils 0.1 thou/uL (0.0-0.2); #Eosinphils 0.4 thou/uL (0.0-0.7); #Lymphocytes 1.1 thou/uL (1.20-3.40); #Monocytes 0.7 thou/uL (0.11-0.59); #Neutrophils 6.1 thou/uL (1.40-6.50); %Basophils 0.8 % (0.0-1.0); %Eosinophils 5.3 % (0.0-10.0); %Lymphocytes 13.1 % (21.0-51.0); %Monocytes 8.2 % (0.0-10.0); Hematocrit 29.6 % (42.0-52.0); Mean Platelet Volume 7.6 fL (7.4-10.4); Red Blood Cell (RBC) Count 3.27 mill/uL (4.70-6.10); White Blood Cell (WBC) Count 8.3 thou/uL (4.8-10.8)
[2017-03-13 11:24] LABS: Prothrombin Time 14.7 SEC (12.0-14.7)
[2017-03-13 11:36] LABS: ALT (SGPT) 10 U/L (8-55); AST (SGOT) 13 U/L (5-34); Alkaline Phosphatase 59 U/L (40-150); Anion Gap 11 mmol/L (10-20); BUN (Urea Nitrogen) 30 mg/dL (8.4-25.7); Bilirubin, Total 0.2 mg/dL (0.2-1.2); Calc. Creatinine Clearance 0 mL/min (70-130); Carbon Dioxide 25 mmol/L (23-31); Chloride 105 mmol/L (98-107); Estimated GFR-MDRD 47; Globulin 3.5 g/dL (2.4-3.5)
== END 2017-03-13 13:52 | disposition home or self-care (01) ==
LOC: ERS 10:18
DX: S00.411A Abrasion of right ear, initial encounter (principal); R04.0 Epistaxis; I13.0 Hypertensive heart and chronic kidney disease with heart failure and stage 1 through stage 4 chronic kidney disease, or unspecified chronic kidney disease; I50.9 Heart failure, unspecified; N18.3 Chronic kidney disease, stage 3 (moderate); I25.10 Atherosclerotic heart disease of native coronary artery without angina pectoris; K21.9 Gastro-esophageal reflux disease without esophagitis; J44.9 Chronic obstructive pulmonary disease, unspecified; D50.0 Iron deficiency anemia secondary to blood loss (chronic); Y33.XXXA Other specified events, undetermined intent, initial encounter
CPT/HCPCS: 36415; 80053; 85025; 85610; 94640; J7620

== ENCOUNTER 2017-05-19 19:53 | Inpatient (IN) | payer MEDICAID, MEDICARE ==
[2017-05-19 20:34] LABS: #Eosinphils 0.1 thou/uL (0.0-0.7); #Lymphocytes 0.8 thou/uL (1.20-3.40); #Monocytes 0.9 thou/uL (0.11-0.59); #Neutrophils 7.5 thou/uL (1.40-6.50); %Basophils 0.1 % (0.0-1.0); %Eosinophils 1.5 % (0.0-10.0); %Lymphocytes 8.7 % (21.0-51.0); %Monocytes 9.4 % (0.0-10.0); %Neutrophils 80.3 % (42.0-75.0); Hemoglobin 10.5 g/dL (14.0-18.0); Mean Corpuscular HGB CONC 33.1 g/dL (32.0-36.0); Mean Corpuscular Hemoglobin 29.8 pg (27.0-31.0); Mean Corpuscular Volume 89.8 fl (80.0-94.0); Mean Platelet Volume 6.9 fL (7.4-10.4); Platelet Count 186 thou/uL (130-400); RBC Distribution Width 14.8 % (11.5-14.5); Red Blood Cell (RBC) Count 3.53 mill/uL (4.70-6.10); White Blood Cell (WBC) Count 9.4 thou/uL (4.8-10.8)
[2017-05-19 21:01] LABS: ALT (SGPT) 23 U/L (8-55); AST (SGOT) 27 U/L (5-34); Albumin 3.6 g/dL (3.4-4.8); Alkaline Phosphatase 65 U/L (40-150); Anion Gap 14 mmol/L (10-20); BUN (Urea Nitrogen) 47 mg/dL (8.4-25.7); Bilirubin, Total 0.4 mg/dL (0.2-1.2); Calc. Creatinine Clearance 0 mL/min (70-130); Calcium 9.5 mg/dL (7.8-10.44); Carbon Dioxide 28 mmol/L (23-31); Chloride 100 mmol/L (98-107); Estimated GFR-MDRD 36; Globulin 4.2 g/dL (2.4-3.5); Glucose 158 mg/dL (83-110); Potassium 4.2 mmol/L (3.5-5.1); Protein, Total 7.8 g/dL (5.8-8.1); Sodium 138 mmol/L (136-145)
--- NOTE | 2017-05-19 21:05 | RAD ---
CHEST ONE VIEW 05/19/17 HISTORY: Dyspnea. COMPARISON: 01/31/17. FINDINGS: Portable upright chest radiograph demonstrates sternotomy wires. Coronary stent is noted. Heart is en larged. Pulmonary vessels are slightly prominent. Costophrenic angles are clear. No definite consolid ation or masses. Chronic changes are noted. No pneumothorax. No acute osseous abnormalities. Old inju ry to the left clavicle is identified. IMPRESSION: No acute cardiopulmonary process. POS: L[facility]YD
[2017-05-19] MEDS ORDERED: Magnesium 2 GM/NS 0.9% 50 ML 2 GM in Premix Bag 1 BAG IVPB SCH (21:15)
[2017-05-19] MEDS ORDERED: Albuterol Sulfate 2.5 mg/3 ml Neb ONE (21:35)
[2017-05-19 22:21] LABS: Troponin I 0.096 ng/mL (< 0.028)
[2017-05-20] MEDS ORDERED: Albuterol Sulfate 2.5 mg/3 ml Neb ONE (00:56)
[2017-05-20] MEDS ORDERED: Ondansetron ODT 4 MG TAB PO PRN (08:20)
[2017-05-20] MEDS ORDERED: Ondansetron HCl/PF 4 MG/2 ML Vial IVP PRN (08:20)
[2017-05-20] MEDS ORDERED: cefTRIAXone\\ROCEPHIN 1 GM in Sodium Chloride 0.9% 100 ML IVPB SCH (08:30)
[2017-05-20] MEDS ORDERED: TICAGRELOR 60 MG PO SCH (09:00)
[2017-05-20] MEDS ORDERED: cefTRIAXone\\ROCEPHIN 1 GM, Syringe 0.4 ML in Sterile Water 9.6 ML SLOW IVP SCH (09:45)
[2017-05-20] MEDS ORDERED: Sodium Chloride 0.9% 10 ML ONE (10:15)
[2017-05-20] MEDS: Azithromycin 500 MG in Sodium Chloride 0.9% 250 ML 250 ML IVPB SCH (10:21)
[2017-05-20] MEDS: Magnesium Oxide 400 MG TAB PO SCH (10:22)
[2017-05-20] MEDS: Tamsulosin HCl 0.4 MG CAP PO SCH (10:23)
[2017-05-20] MEDS: Gabapentin 300 MG CAP PO SCH ×3 (10:23→20:10)
[2017-05-20] MEDS: Ferrous Sulfate 325 MG TAB PO SCH (10:23)
[2017-05-20] MEDS: Finasteride 5 MG TAB PO SCH (10:23)
[2017-05-20] MEDS: guaiFENesin ER 600 MG TAB PO SCH ×2 (10:23→20:10)
[2017-05-20] MEDS: Multivit, Therapeutic 1 TAB PO SCH (10:24)
[2017-05-20] MEDS: Enoxaparin Sodium 30 MG/0.3 ML SYRINGE SC SCH (10:24)
[2017-05-20] MEDS: Famotidine 20 MG TAB PO SCH (10:24)
[2017-05-20] MEDS: Simethicone Chewable 80 MG TAB PO SCH ×3 (10:24→20:11)
[2017-05-20] MEDS: Polyethylene Glycol 3350 17 GM Packet PO SCH ×2 (10:24→20:10)
[2017-05-20] MEDS: Albuterol Sulfate 2.5 mg/3 ml Neb NEB PRN (11:12)
[2017-05-20] MEDS ORDERED: Furosemide 40 MG/4 ML VIAL ONE (12:29)
[2017-05-20] MEDS ORDERED: Furosemide 40 MG/4 ML VIAL SLOW IVP SCH (12:30)
[2017-05-20 13:16] LABS: Base Excess (BEa) -1.7 mEq/L (0 (+/-) 2.5); CO2 Tension 65.5 mmHg (35.0-45.0); Calcium, Ionized 1.2 mmol/L (1.12-1.30); Hematocrit-ABG 38.2 % (42.0-52.0); Hemoglobin (Hb) 11.9 g/dL (14.0-18.0); O2 Tension (PaO2) 200.2 mmHg (80.0-100.0); pH, Arterial 7.23 (7.35-7.45)
[2017-05-20 13:17] LABS: ALV-art Gradient 33.405 (0-20); Analyzer IN Cardio OR; Puncture Site RRA
--- NOTE | 2017-05-20 20:01 | PRG ---
PULMONARY CONSULT NOTE DATE OF SERVICE: 05/20/2017 SERVICE: Pulmonary Medicine. REASON FOR CONSULTATION: Respiratory failure. HISTORY OF PRESENT ILLNESS: The patient is an 87-year-old white male with past medical history significant for heart disease. He was in his usual state of health until 1 week ago when he started having cough productive of yellow sputum. He has had increasing shortness of breath that slowly involved. He was also having orthopnea and increasing swelling of the bilateral lower extremities. He presented to the emergency department where he was treated with antibiotics, nebulized medications, as well as some steroids. He was given some gentle IV hydration and sent to the floor. Over there, he decompensated further. INOCENCIA reynolds was called after an ABG was obtained. He had an acute hypercapnic respiratory failure with fairly profound hypoxemia. As such, he was transitioned to the ICU and consultation for me was placed. On the BiPAP, he had significant improvement in symptoms. He is resting comfortably and has no specific complaints of nausea, vomiting, or chest discomfort. He had no palpitations recently. He has essentially returned to his usual state of health. During the code event, he did get one dose of Lasix. PAST MEDICAL HISTORY: 1. COPD. 2. Chronic diastolic heart failure with an EF of 40%-45%. 3. Severe mitral regurgitation. 4. Peripheral vascular disease. 5. Atrial fibrillation. 6. Cerebrovascular accident. 7. Gastroesophageal reflux disease. 8. Dementia. 9. Hypertension. 10. Benign prostatic hypertrophy. 11. Coronary artery disease. 12. Hypothyroidism. 13. Anemia. PAST SURGICAL HISTORY: 1. Coronary artery bypass graft. 2. Right inguinal hernia repair. 3. Cardiac catheterization in 2010. 4. Colonoscopy in 2012. ALLERGIES: SIMVASTATIN and EZETIMIBE. MEDICATIONS: List of his inpatient medications was reviewed. A couple of small updates were made at this time. SOCIAL HISTORY: Negative for alcohol, tobacco or illicit drug use. He is a former smoker and had greater than [id number] history of smoking. He denies any exposure to chemicals, dust asbestosis or tuberculosis. FAMILY HISTORY: Noncontributory. REVIEW OF SYSTEMS: At this time, the patient's review of systems including general, head, eyes, nose, throat, cardiovascular, respiratory, GI, , musculoskeletal, neurologic and skin is negative except as mentioned in the HPI. His breathing is much improved. PHYSICAL EXAMINATION: VITAL SIGNS: Afebrile, pulse 71, blood pressure 118/54, respirations 22, saturation 96% on 27% FiO2 and a PEEP of 5. GENERAL: The patient is awake and alert on noninvasive ventilation. He is tolerating it just fine with no significant agitation. HEENT: Normocephalic, atraumatic. Sclerae are white, conjunctivae pink. Oral mucosa is moist without lesions. LUNGS: Bilateral rhonchi are present. There are also dependent crackles which are extensive. There is a prolonged expiratory phase and polyphonic wheezing. HEART: Normal rate, regular. ABDOMEN: Soft, nontender, and nondistended. Bowel sounds are positive. MUSCULOSKELETAL: No cyanosis or clubbing. There 1-2+ pitting in the bilateral lower extremities. NEUROLOGIC: Grossly nonfocal. LABORATORY DATA: WBC 9.4, hemoglobin 10.5, platelets 186,000. INR 1.1 previously. A pH 7.23, pCO2 65, pO2 100 on 100% FIO2 at that time. Creatinine 1.77 and trending upward. BUN 47. Basic metabolic profile is otherwise unremarkable including bicarbonate of 28. Anion gap is close to normal. Liver function studies are unremarkable. Troponin is negative. BNP is elevated to 700 and much above baseline. Urine culture is positive for significant white blood cells and large leukocyte esterase as well as nitrites. Urine culture is growing E. coli which is essentially george resistant organism and has extended spectrum beta lactamase producing lesion. IMAGING DATA: Chest x-ray demonstrates no acute cardiopulmonary abnormality. There is large cardiomegaly present. There is evidence of prior vascular engorgement. ASSESSMENT: 1. Acute hypoxic and hypercapnic respiratory failure. 2. Chronic obstructive pulmonary disease with acute exacerbation. 3. Acute on chronic systolic and valvular heart failure. 4. Acute kidney injury on chronic kidney disease. PLAN: We will continue to diurese the patient as tolerated. Respiratory virus panel will be obtained to determine whether or not the patient has acute infectious process precipitating his presentation. I really do not see anything on the chest x-ray consistent with pneumonia. Azithromycin and Rocephin will be continued for the time being, but will likely be deescalate it soon enough. Methylprednisolone will be stopped and will give him prednisone once daily. Pulmonary or Critical Care will continue to follow while the patient remains in this location. We will start giving him BiPAP breaks in the morning. CRITICAL CARE TIME: 30 minutes. [facility]
[2017-05-20] MEDS: TICAGRELOR 60 MG PO SCH (20:10)
[2017-05-21 05:20] LABS: #Lymphocytes 0.7 thou/uL (1.20-3.40); #Monocytes 0.6 thou/uL (0.11-0.59); #Neutrophils 12.3 thou/uL (1.40-6.50); %Basophils 0.3 % (0.0-1.0); %Eosinophils 0.1 % (0.0-10.0); %Lymphocytes 5.3 % (21.0-51.0); %Monocytes 4.4 % (0.0-10.0); %Neutrophils 89.9 % (42.0-75.0); Hemoglobin 10.1 g/dL (14.0-18.0); Mean Corpuscular HGB CONC 32.7 g/dL (32.0-36.0); Mean Corpuscular Hemoglobin 29.5 pg (27.0-31.0); Mean Corpuscular Volume 90.3 fl (80.0-94.0); Mean Platelet Volume 7.6 fL (7.4-10.4); Platelet Count 185 thou/uL (130-400); RBC Distribution Width 14.6 % (11.5-14.5); Red Blood Cell (RBC) Count 3.43 mill/uL (4.70-6.10); White Blood Cell (WBC) Count 13.7 thou/uL (4.8-10.8)
[2017-05-21 05:42] LABS: Anion Gap 16 mmol/L (10-20); BUN (Urea Nitrogen) 53 mg/dL (8.4-25.7); Calc. Creatinine Clearance 36 mL/min (70-130); Calcium 8.9 mg/dL (7.8-10.44); Carbon Dioxide 27 mmol/L (23-31); Chloride 101 mmol/L (98-107); Estimated GFR-MDRD 38; Glucose 144 mg/dL (83-110); Potassium 4.8 mmol/L (3.5-5.1); Sodium 139 mmol/L (136-145)
[2017-05-21] MEDS: Furosemide 40 MG/4 ML VIAL SLOW IVP SCH (05:52)
[2017-05-21] MEDS: Levothyroxine Sodium 75 MCG TAB PO SCH (05:53)
[2017-05-21] MEDS: predniSONE 20 MG TAB PO SCH (08:39)
[2017-05-21] MEDS: Simethicone Chewable 80 MG TAB PO SCH ×4 (08:39→21:06)
[2017-05-21] MEDS: Gabapentin 300 MG CAP PO SCH ×3 (08:40→21:05)
[2017-05-21] MEDS: Famotidine 20 MG TAB PO SCH (08:40)
[2017-05-21] MEDS: Multivit, Therapeutic 1 TAB PO SCH (08:40)
[2017-05-21] MEDS: Tamsulosin HCl 0.4 MG CAP PO SCH (08:40)
[2017-05-21] MEDS: guaiFENesin ER 600 MG TAB PO SCH ×2 (08:40→21:06)
[2017-05-21] MEDS: Finasteride 5 MG TAB PO SCH (08:40)
[2017-05-21] MEDS: Ferrous Sulfate 325 MG TAB PO SCH (08:40)
[2017-05-21] MEDS: Magnesium Oxide 400 MG TAB PO SCH (08:40)
[2017-05-21] MEDS: Enoxaparin Sodium 30 MG/0.3 ML SYRINGE SC SCH (08:41)
[2017-05-21] MEDS: TICAGRELOR 60 MG PO SCH ×2 (08:41→21:38)
[2017-05-21] MEDS: Polyethylene Glycol 3350 17 GM Packet PO SCH ×2 (08:50→21:07)
[2017-05-21] MEDS: cefTRIAXone\\ROCEPHIN 1 GM, Syringe 0.4 ML in Sterile Water 9.6 ML SLOW IVP SCH (11:31)
[2017-05-21] MEDS: Azithromycin 500 MG in Sodium Chloride 0.9% 250 ML 250 ML IVPB SCH (11:31)
--- NOTE | 2017-05-21 18:53 | PRG ---
DATE OF SERVICE: 05/21/2017 SERVICE: Pulmonary Medicine. INTERVAL HISTORY: The patient is doing fine from a respiratory standpoint. His breathing is much le ss labored than it was yesterday. He is doing everything he can to stay off the BiPAP. I have sugge sted to him that it is not actually what he wants to do. If he is having increasing respiratory diff iculty, I am encouraging him to get on BiPAP before he develops a respiratory event. He has some anx iety over using the device. That being said, when you hold the mask onto himself, he seems to have l ess anxiety associated with it. PHYSICAL EXAMINATION: VITAL SIGNS: Afebrile, pulse 94, blood pressure 135/76, respirations 20, saturation 94% on 2 liters nasal cannula. GENERAL: Patient is awake, alert, under mild respiratory distress. HEART: Normal rate, regular. ABDOMEN: Soft, nontender, nondistended. Bowel sounds are positive. MUSCULOSKELETAL: No cyanosis or clubbing. There is no pitting in the bilateral lower extremities. NEUROLOGIC: Grossly nonfocal. LUNGS: Decreased air entry. There is prolonged expiratory phase and crackles present. Wheezing is also present. MUSCULOSKELETAL: No cyanosis or clubbing. There is trace to 1+ pitting in the bilateral lower extre mities. LABORATORY DATA: WBC 13.7 and up trending, hemoglobin 10.1, platelets 185,000. Neutrophil count has increased to 90%. Creatinine is stable at 1.72. Basic metabolic profile is otherwise unremarkable. Blood sugar is 213. BNP 742. ASSESSMENT: 1. Acute hypoxic and hypercapnic respiratory failure. 2. Chronic obstructive pulmonary disease with acute exacerbation. 3. Acute on chronic systolic and valvular heart failure. 4. Acute kidney injury on chronic kidney disease. PLAN: We will continue to diurese the patient. He will be maintained on intermittent BiPAP therapy. We will continue our antibiotics, steroids, nebulized medication. Respiratory virus panel will be obtained. Otherwise, supportive measures will be continued.
--- NOTE | 2017-05-21 23:37 | PDOC.PN ---
- Subjective Encounter Start Date: 05/21/17 Encounter Start Time: 23:35 Subjective: SEEN AND EXAMINED feeling better but still short of breath - Objective Vital Signs & Weight: Vital Signs (12 hours) Temp Pulse Resp BP Pulse Ox 05/21/17 17:49 93 24 H 93 L 05/21/17 15:36 99.3 F 94 20 135/76 94 L 05/21/17 12:16 104 H Weight Admit Weight 192 lb Weight 192 lb Most Recent Monitor Data Heart Rate from ECG 72 NIBP 118/54 NIBP BP-Mean 68 Respiration from ECG 24 SpO2 97 I&O: 05/20/17 05/21/17 05/22/17 06:59 06:59 06:59 Intake Total 950 Output Total 1360 1600 Balance -410 -1600 Result Diagrams: 05/21/17 03:42 05/21/17 03:42 Phys Exam - Physical Examination Constitutional: NAD HEENT: PERRLA, moist MMs, sclera anicteric, TM's clear Neck: no nodes, no JVD, supple, full ROM Respiratory: wheezing present Cardiovascular: RRR, no significant murmur, no rub Gastrointestinal: soft, non-tender, no distention, positive bowel sounds Musculoskeletal: pulses present Dx/Plan (1) Acute respiratory failure with hypoxia Code(s): J96.01 - ACUTE RESPIRATORY FAILURE WITH HYPOXIA Status: Acute (2) COPD exacerbation Code(s): J44.1 - CHRONIC OBSTRUCTIVE PULMONARY DISEASE W (ACUTE) EXACERBATION Status: Acute (3) CAD (coronary artery disease) Code(s): I25.10 - ATHSCL HEART DISEASE OF [place] CORONARY ARTERY W/O ANG PCTRS Status: Chronic Qualifiers: (4) CKD (chronic kidney disease) stage 3, GFR 30-59 ml/min Code(s): N18.3 - CHRONIC KIDNEY DISEASE, STAGE 3 (MODERATE) Status: Chronic (5) Chronic combined systolic and diastolic CHF (congestive heart failure) Code(s): I50.42 - CHRONIC COMBINED SYSTOLIC AND DIASTOLIC HRT FAIL Status: Chronic (6) Dyslipidemia Code(s): E78.5 - HYPERLIPIDEMIA, UNSPECIFIED Status: Chronic - Plan plan discussed w/ family, continue antibiotics, PT/OT, adoption social worker, respiratory therapy diuresis -: Appreciate pulmonary input * .
[2017-05-22] MEDS: Albuterol Sulfate 2.5 mg/3 ml Neb NEB PRN (04:05)
[2017-05-22] MEDS: Levothyroxine Sodium 75 MCG TAB PO SCH (05:51)
[2017-05-22] MEDS: Furosemide 40 MG/4 ML VIAL SLOW IVP SCH (05:51)
--- NOTE | 2017-05-22 08:45 | PDOC.PN ---
- Subjective Encounter Start Date: 05/22/17 Encounter Start Time: 08:43 Subjective: seen and examied feeling terrible--short of breath and anxious - Objective Vital Signs & Weight: Vital Signs (12 hours) Temp Pulse Resp BP Pulse Ox 05/22/17 07:47 98.0 F 94 24 H 146/68 H 100 05/22/17 07:29 98.4 F 91 18 95 05/22/17 06:55 91 18 95 05/22/17 04:01 98.9 F 85 20 134/71 98 05/22/17 01:17 81 05/22/17 00:01 98.2 F 78 18 118/59 L 97 Weight Admit Weight 192 lb Weight 192 lb Most Recent Monitor Data Heart Rate from ECG 72 NIBP 118/54 NIBP BP-Mean 68 Respiration from ECG 24 SpO2 97 I&O: 05/21/17 05/22/17 05/23/17 06:59 06:59 06:59 Intake Total 950 350 Output Total 1360 3350 Balance -410 -3000 Result Diagrams: 05/21/17 03:42 05/21/17 03:42 Phys Exam - Physical Examination Constitutional: NAD HEENT: PERRLA, moist MMs, sclera anicteric, TM's clear Neck: no nodes, no JVD, supple, full ROM Respiratory: wheezing present Cardiovascular: RRR, no significant murmur, no rub Gastrointestinal: soft, non-tender, no distention, positive bowel sounds Musculoskeletal: no edema, pulses present Dx/Plan (1) Acute respiratory failure with hypoxia Code(s): J96.01 - ACUTE RESPIRATORY FAILURE WITH HYPOXIA Status: Acute (2) COPD exacerbation Code(s): J44.1 - CHRONIC OBSTRUCTIVE PULMONARY DISEASE W (ACUTE) EXACERBATION Status: Acute (3) CAD (coronary artery disease) Code(s): I25.10 - ATHSCL HEART DISEASE OF [place] CORONARY ARTERY W/O ANG PCTRS Status: Chronic Qualifiers: (4) CKD (chronic kidney disease) stage 3, GFR 30-59 ml/min Code(s): N18.3 - CHRONIC KIDNEY DISEASE, STAGE 3 (MODERATE) Status: Chronic (5) Chronic combined systolic and diastolic CHF (congestive heart failure) Code(s): I50.42 - CHRONIC COMBINED SYSTOLIC AND DIASTOLIC HRT FAIL Status: Chronic (6) Dyslipidemia Code(s): E78.5 - HYPERLIPIDEMIA, UNSPECIFIED Status: Chronic - Plan continue antibiotics, PT/OT, social services assistant, respiratory therapy, DVT proph w/ lovenox Patient might need more steroids but will defer to pulmonary team -: Prognosis not too good -: Repeat CXR * .
[2017-05-22] MEDS: cefTRIAXone\\ROCEPHIN 1 GM, Syringe 0.4 ML in Sterile Water 9.6 ML SLOW IVP SCH (09:30)
[2017-05-22] MEDS: Gabapentin 300 MG CAP PO SCH ×3 (09:30→21:10)
[2017-05-22] MEDS: Polyethylene Glycol 3350 17 GM Packet PO SCH ×2 (09:30→21:11)
[2017-05-22] MEDS: Azithromycin 500 MG in Sodium Chloride 0.9% 250 ML 250 ML IVPB SCH (09:30)
[2017-05-22] MEDS: Enoxaparin Sodium 30 MG/0.3 ML SYRINGE SC SCH (09:30)
[2017-05-22] MEDS: Magnesium Oxide 400 MG TAB PO SCH (09:31)
[2017-05-22] MEDS: Ferrous Sulfate 325 MG TAB PO SCH (09:31)
[2017-05-22] MEDS: Finasteride 5 MG TAB PO SCH (09:31)
[2017-05-22] MEDS: Multivit, Therapeutic 1 TAB PO SCH (09:31)
[2017-05-22] MEDS: Simethicone Chewable 80 MG TAB PO SCH ×4 (09:31→21:10)
[2017-05-22] MEDS: Famotidine 20 MG TAB PO SCH (09:31)
[2017-05-22] MEDS: predniSONE 20 MG TAB PO SCH (09:31)
[2017-05-22] MEDS: Tamsulosin HCl 0.4 MG CAP PO SCH (09:31)
[2017-05-22] MEDS: guaiFENesin ER 600 MG TAB PO SCH ×2 (09:31→21:10)
[2017-05-22] MEDS: TICAGRELOR 60 MG PO SCH ×2 (09:32→21:11)
[2017-05-22] MEDS ORDERED: Metoprolol Tartrate 5 MG/5 ML VIAL IVP PRN (14:17)
[2017-05-22 14:41] LABS: Anion Gap 16 mmol/L (10-20); BUN (Urea Nitrogen) 52 mg/dL (8.4-25.7); Calc. Creatinine Clearance 33 mL/min (70-130); Carbon Dioxide 30 mmol/L (23-31); Chloride 97 mmol/L (98-107); Estimated GFR-MDRD 34; Glucose 155 mg/dL (83-110); Magnesium 2.5 mg/dL (1.6-2.6); Potassium 4.5 mmol/L (3.5-5.1); Sodium 138 mmol/L (136-145)
--- NOTE | 2017-05-22 15:07 | RAD ---
PORTABLE CHEST: History: Dyspnea. Comparison: 05-19-17 FINDINGS: The lungs show no focal or confluent infiltrate. Heart size is upper normal. Mild vascular engorgemen t. No evidence of acute change when compared to 05-19-17. IMPRESSION: No acute findings. POS: [facility]
[2017-05-22] MEDS ORDERED: Digoxin 0.5 MG/2 ML AMP SLOW IVP SCH ×2 (16:00→22:00)
--- NOTE | 2017-05-22 17:20 | HP ---
CHIEF COMPLAINT: Shortness of breath. HISTORY OF PRESENT ILLNESS: This is an 87-year-old gentleman as well as check the patient's re spiratory status. . PAST MEDICAL HISTORY: Hypertension, hypoparathyroidism, BPH. MEDICATIONS: Have been reviewed. SOCIAL HISTORY: Remote tobacco use, . FAMILY HISTORY: Not significantly related to the presenting illness. REVIEW OF SYSTEMS: As documented in the body of the history notes. PHYSICAL EXAMINATION: GENERAL: The patient was found to be in significant respiratory distress. Noted with the following vital signs. VITAL SIGNS: Afebrile with . HEENT: Unremarkable with moist oral mucosa. NECK: Supple. CARDIOVASCULAR: . EXTREMITIES: No significant peripheral edema. IMPRESSION: 1. Respiratory failure. 2. Pneumonia. 3. History of dementia. 4. History of coronary artery disease. PLAN: 1. In addition, patient to initiate broad-spectrum antibiotics. 2. Parenteral diuresis. 3. Pulmonary consult. 4. Further recommendations dependent on the clinical course.
--- NOTE | 2017-05-22 20:23 | PRG ---
DATE OF SERVICE: 05/22/2017 SERVICE: Pulmonary Medicine. INTERVAL HISTORY: The patient is doing fantastic from a respiratory standpoint. His oxygen requirem ents are actually improving. He is only on 27% FiO2. He remains extraordinarily weak. Outside of t his, there has been no interval change to his condition. The flu swab was positive. PHYSICAL EXAMINATION: VITAL SIGNS: Afebrile with a T-max of 99, pulse 101, blood pressure 121/71, respirations 28, saturat ion 93% on 27% FiO2 delivered via BiPAP. GENERAL: The patient is awake, alert, in no apparent distress. LUNGS: Improved air entry. There is still prolonged expiratory phase and rhonchi present. No crack les. HEART: Normal rate, regular. ABDOMEN: Soft, nontender, nondistended. Bowel sounds are positive. MUSCULOSKELETAL: No cyanosis or clubbing. Pitting edema has improved. GENITOURINARY: Varela catheter in place. NEUROLOGIC: Grossly nonfocal. LABORATORY DATA: WBC 13.7, hemoglobin 10.1, platelets 185,000. Creatinine 1.87 and roughly stable. BUN is 52. Basic metabolic profile is otherwise unremarkable. Magnesium is 2.5. PCR of the nose s wab is positive for influenza A H3. IMAGING: Chest x-ray demonstrates no acute cardiothoracic abnormality. There is mild vascular engor gement. There is no acute change compared to 2 days ago. ASSESSMENT: 1. Acute hypoxic and hypercapnic respiratory failure. 2. Chronic obstructive pulmonary disease with acute exacerbation. 3. Acute on chronic systolic and valvular heart failure. 4. Acute kidney injury on chronic kidney disease. PLAN: I will back off on the diuretics to once daily. We are going to continue working on mobilizin g the patient as much as tolerated. I will put him on Tamiflu for a 5-day course. Pulmonary Critica rachael Manzanares will continue to follow, but until he remains off the BiPAP for an extended period of time, he will likely need to remain in IMCU.
[2017-05-22] MEDS: Metoprolol Tartrate 25 MG TAB PO SCH (21:10)
[2017-05-23 04:29] LABS: #Lymphocytes 0.9 thou/uL (1.20-3.40); #Monocytes 0.5 thou/uL (0.11-0.59); #Neutrophils 7.6 thou/uL (1.40-6.50); %Eosinophils 0.3 % (0.0-10.0); %Lymphocytes 10.3 % (21.0-51.0); %Monocytes 5.8 % (0.0-10.0); %Neutrophils 83.6 % (42.0-75.0); Hemoglobin 10.7 g/dL (14.0-18.0); Mean Corpuscular Hemoglobin 29.3 pg (27.0-31.0); Mean Corpuscular Volume 88.8 fl (80.0-94.0); Mean Platelet Volume 7.6 fL (7.4-10.4); Platelet Count 199 thou/uL (130-400); RBC Distribution Width 14.7 % (11.5-14.5); Red Blood Cell (RBC) Count 3.64 mill/uL (4.70-6.10); White Blood Cell (WBC) Count 9.1 thou/uL (4.8-10.8)
[2017-05-23 04:47] LABS: Anion Gap 14 mmol/L (10-20); BUN (Urea Nitrogen) 63 mg/dL (8.4-25.7); Calc. Creatinine Clearance 34 mL/min (70-130); Calcium 8.7 mg/dL (7.8-10.44); Carbon Dioxide 29 mmol/L (23-31); Chloride 100 mmol/L (98-107); Estimated GFR-MDRD 35; Glucose 173 mg/dL (83-110); Magnesium 2.9 mg/dL (1.6-2.6); Phosphorus 3.7 mg/dL (2.3-4.7); Potassium 4.2 mmol/L (3.5-5.1); Sodium 139 mmol/L (136-145)
[2017-05-23] MEDS: Levothyroxine Sodium 75 MCG TAB PO SCH (05:54)
[2017-05-23] MEDS: Furosemide 40 MG/4 ML VIAL SLOW IVP SCH (05:54)
[2017-05-23] MEDS: predniSONE 20 MG TAB PO SCH (08:48)
[2017-05-23] MEDS: guaiFENesin ER 600 MG TAB PO SCH ×2 (08:48→20:47)
[2017-05-23] MEDS: Gabapentin 300 MG CAP PO SCH ×3 (08:48→20:47)
[2017-05-23] MEDS: Simethicone Chewable 80 MG TAB PO SCH ×4 (08:48→20:47)
[2017-05-23] MEDS: Oseltamivir 75 MG CAP PO SCH (08:48)
[2017-05-23] MEDS: Ferrous Sulfate 325 MG TAB PO SCH (08:48)
[2017-05-23] MEDS: Famotidine 20 MG TAB PO SCH (08:49)
[2017-05-23] MEDS: Finasteride 5 MG TAB PO SCH (08:49)
[2017-05-23] MEDS: Tamsulosin HCl 0.4 MG CAP PO SCH (08:49)
[2017-05-23] MEDS: Multivit, Therapeutic 1 TAB PO SCH (08:49)
[2017-05-23] MEDS: Magnesium Oxide 400 MG TAB PO SCH (08:49)
[2017-05-23] MEDS: Enoxaparin Sodium 30 MG/0.3 ML SYRINGE SC SCH (08:50)
[2017-05-23] MEDS: Polyethylene Glycol 3350 17 GM Packet PO SCH ×2 (08:50→20:49)
[2017-05-23] MEDS: Metoprolol Tartrate 25 MG TAB PO SCH ×2 (08:50→20:48)
[2017-05-23] MEDS: TICAGRELOR 60 MG PO SCH ×2 (08:56→20:48)
[2017-05-23] MEDS: cefTRIAXone\\ROCEPHIN 1 GM, Syringe 0.4 ML in Sterile Water 9.6 ML SLOW IVP SCH (08:57)
[2017-05-23] MEDS: Azithromycin 500 MG in Sodium Chloride 0.9% 250 ML 250 ML IVPB SCH (11:20)
--- NOTE | 2017-05-23 19:24 | PDOC.PN ---
- Subjective Encounter Start Date: 05/23/17 Encounter Start Time: 19:23 Subjective: seen and examined-still very anxious and tired - Objective Vital Signs & Weight: Vital Signs (12 hours) Temp Pulse Pulse Pulse Pulse Resp BP 05/23/17 18:17 69 20 05/23/17 15:00 97.4 F L 63 20 05/23/17 12:10 72 24 H 05/23/17 11:00 97.7 F 69 20 05/23/17 09:10 83 82 89 135/61 05/23/17 08:45 97.2 F L 69 16 05/23/17 08:35 69 16 BP BP BP Pulse Ox Pulse Ox Pulse Ox 05/23/17 18:17 96 05/23/17 15:00 106/50 L 97 05/23/17 12:10 94 L 05/23/17 11:00 109/47 L 96 05/23/17 09:10 124/55 L 131/48 L 92 L 92 L 05/23/17 08:45 91 L 05/23/17 08:35 99 Weight Admit Weight 192 lb Weight 175 lb 6.4 oz Most Recent Monitor Data Heart Rate from ECG 72 NIBP 118/54 NIBP BP-Mean 68 Respiration from ECG 24 SpO2 97 I&O: 05/22/17 05/23/17 05/24/17 06:59 06:59 06:59 Intake Total 350 1050 750 Output Total 3350 2690 350 Balance -3000 -1640 400 Result Diagrams: 05/23/17 03:35 05/23/17 03:35 Phys Exam - Physical Examination Constitutional: NAD HEENT: PERRLA, moist MMs, sclera anicteric, TM's clear Neck: no nodes, no JVD, supple, full ROM Respiratory: wheezing present Cardiovascular: RRR, no significant murmur, no rub Gastrointestinal: soft, non-tender, no distention, positive bowel sounds Musculoskeletal: no edema, pulses present Dx/Plan (1) Acute respiratory failure with hypoxia Code(s): J96.01 - ACUTE RESPIRATORY FAILURE WITH HYPOXIA Status: Acute (2) COPD exacerbation Code(s): J44.1 - CHRONIC OBSTRUCTIVE PULMONARY DISEASE W (ACUTE) EXACERBATION Status: Acute (3) CAD (coronary artery disease) Code(s): I25.10 - ATHSCL HEART DISEASE OF [place] CORONARY ARTERY W/O ANG PCTRS Status: Chronic Qualifiers: (4) CKD (chronic kidney disease) stage 3, GFR 30-59 ml/min Code(s): N18.3 - CHRONIC KIDNEY DISEASE, STAGE 3 (MODERATE) Status: Chronic (5) Chronic combined systolic and diastolic CHF (congestive heart failure) Code(s): I50.42 - CHRONIC COMBINED SYSTOLIC AND DIASTOLIC HRT FAIL Status: Chronic (6) Dyslipidemia Code(s): E78.5 - HYPERLIPIDEMIA, UNSPECIFIED Status: Chronic - Plan plan discussed w/ family, continue antibiotics, PT/OT, social insurance administrator, respiratory therapy Appreciate pulmonary input -: Diuresis -: Continue nebs and steroids * .
[2017-05-24] MEDS: Acetaminophen 325 MG TAB PO PRN (00:41)
[2017-05-24 04:59] LABS: #Monocytes 0.6 thou/uL (0.11-0.59); #Neutrophils 7.3 thou/uL (1.40-6.50); %Eosinophils 0.5 % (0.0-10.0); %Lymphocytes 11.4 % (21.0-51.0); %Neutrophils 81.1 % (42.0-75.0); Hemoglobin 9.9 g/dL (14.0-18.0); Mean Corpuscular HGB CONC 32.8 g/dL (32.0-36.0); Mean Corpuscular Volume 88.6 fl (80.0-94.0); Mean Platelet Volume 7.6 fL (7.4-10.4); Platelet Count 197 thou/uL (130-400); RBC Distribution Width 14.4 % (11.5-14.5); Red Blood Cell (RBC) Count 3.41 mill/uL (4.70-6.10)
[2017-05-24 05:18] LABS: Anion Gap 13 mmol/L (10-20); BUN (Urea Nitrogen) 74 mg/dL (8.4-25.7); Calc. Creatinine Clearance 35 mL/min (70-130); Calcium 8.3 mg/dL (7.8-10.44); Carbon Dioxide 30 mmol/L (23-31); Chloride 97 mmol/L (98-107); Estimated GFR-MDRD 41; Glucose 128 mg/dL (83-110); Phosphorus 3.7 mg/dL (2.3-4.7); Potassium 4.1 mmol/L (3.5-5.1); Sodium 136 mmol/L (136-145)
[2017-05-24] MEDS: Furosemide 40 MG/4 ML VIAL SLOW IVP SCH (05:45)
[2017-05-24] MEDS: Levothyroxine Sodium 75 MCG TAB PO SCH (05:45)
[2017-05-24] MEDS: predniSONE 20 MG TAB PO SCH (08:52)
[2017-05-24] MEDS: Enoxaparin Sodium 30 MG/0.3 ML SYRINGE SC SCH (08:52)
[2017-05-24] MEDS: Finasteride 5 MG TAB PO SCH (08:52)
[2017-05-24] MEDS: Famotidine 20 MG TAB PO SCH (08:52)
[2017-05-24] MEDS: Magnesium Oxide 400 MG TAB PO SCH (08:52)
[2017-05-24] MEDS: Gabapentin 300 MG CAP PO SCH ×3 (08:52→21:01)
[2017-05-24] MEDS: Ferrous Sulfate 325 MG TAB PO SCH (08:52)
[2017-05-24] MEDS: Polyethylene Glycol 3350 17 GM Packet PO SCH ×2 (08:52→21:02)
[2017-05-24] MEDS: Tamsulosin HCl 0.4 MG CAP PO SCH (08:53)
[2017-05-24] MEDS: Metoprolol Tartrate 25 MG TAB PO SCH ×2 (08:53→21:02)
[2017-05-24] MEDS: Multivit, Therapeutic 1 TAB PO SCH (08:53)
[2017-05-24] MEDS: Simethicone Chewable 80 MG TAB PO SCH ×4 (08:53→21:02)
[2017-05-24] MEDS: guaiFENesin ER 600 MG TAB PO SCH ×2 (08:53→21:02)
[2017-05-24] MEDS: Oseltamivir 75 MG CAP PO SCH (08:53)
[2017-05-24] MEDS: TICAGRELOR 60 MG PO SCH ×2 (08:54→21:02)
[2017-05-24] MEDS: Azithromycin 500 MG in Sodium Chloride 0.9% 250 ML 250 ML IVPB SCH (09:03)
[2017-05-24] MEDS: cefTRIAXone\\ROCEPHIN 1 GM, Syringe 0.4 ML in Sterile Water 9.6 ML SLOW IVP SCH (09:03)
--- NOTE | 2017-05-24 17:04 | PRG ---
DATE OF SERVICE: 05/23/2017 SERVICE: Pulmonary Medicine. INTERVAL HISTORY: The patient is doing fine from a respiratory standpoint. He has been on and off o f BiPAP. His strength looks pretty poor. Otherwise, there were no events overnight. He does not cruz ve any complaints of shortness of breath, though he does appear labored. He still has an ill look to him. PHYSICAL EXAMINATION: VITAL SIGNS: Afebrile, pulse 69, blood pressure 109/47, respirations 20, saturation 96% on 3 liters nasal cannula. GENERAL: The patient is awake and alert, in mild distress and a little sick looking. HEENT: Normocephalic, atraumatic. Sclerae are white, conjunctivae pink. Oral mucosa is moist witho ut lesions. LUNGS: Good air entry. There is not much of a prolonged expiratory phase. Rhonchi are present. HEART: Normal rate and regular. ABDOMEN: Soft, nontender, nondistended. Bowel sounds are positive. MUSCULOSKELETAL: No cyanosis or clubbing. There is no pitting in the bilateral lower extremities. NEUROLOGIC: Grossly nonfocal. LABORATORY DATA: WBC 9.1, hemoglobin 10.7, and platelets 199,000. Creatinine 1.82 and stable. BUN is up trending to 63. Basic metabolic profile, magnesium and phosphorus are otherwise unremarkable. Respiratory virus panel is positive for influenza. ASSESSMENT: 1. Acute hypoxic and hypercapnic respiratory failure. 2. Chronic obstructive pulmonary disease with acute exacerbation. 3. Acute on chronic systolic and valvular heart failure, return to euvolemia. 4. Acute kidney injury on chronic kidney disease. PLAN: The patient will remain in the [facility] as he is still requiring BiPAP on an as needed basis. We will continue our supportive measures including antibiotics, nebulize medications, and Tamiflu. Pulm onary and Critical Care will continue to follow while he remains in this location. We will continue focusing efforts on mobilizing the patient as much as he can tolerate.
--- NOTE | 2017-05-24 17:07 | PRG ---
DATE OF SERVICE: 05/24/2017 SERVICE: Pulmonary Medicine. INTERVAL HISTORY: The patient appears much improved today. He has gotten better skin color. He is less toxic appearing. Otherwise, he has been off his BiPAP now for an extended period of time and do es not require it anymore. His strength is improving. Overall, he is moving in the right direction. PHYSICAL EXAMINATION: VITAL SIGNS: Afebrile, pulse 58, blood pressure 112/53, respirations 22, saturation 97% on 2 liters nasal cannula. GENERAL: The patient is awake and alert. He is in no apparent distress. LUNGS: Decent air entry. There is no prolonged expiratory phase, wheezing, rhonchi or crackles. HEART: Normal rate, regular. ABDOMEN: Soft, nontender, nondistended. Bowel sounds are positive. MUSCULOSKELETAL: No cyanosis or clubbing. There is no pitting in the bilateral lower extremities. NEUROLOGIC: Grossly nonfocal. LABORATORY DATA: WBC 9.0, hemoglobin 9.9, platelets 197,000. Basic metabolic profile is essentially unremarkable with down trending creatinine of 1.6 and magnesium of 3.0. Respiratory virus panel is positive for influenza. ASSESSMENT: 1. Acute hypoxic respiratory failure, improving. 2. Chronic obstructive pulmonary disease exacerbation secondary to influenza. 3. Acute on chronic systolic and valvular heart failure, return to euvolemia. 4. Acute kidney injury on chronic kidney disease. PLAN: We will continue our supported medications including antibiotics, nebulized medications, and s teroids. At this point, he is off BiPAP and I think he can transition to telemetry. I will continue to follow while he remains in this location. Ultimately, if he is stable for 24 additional hours, h e can be considered for transition back home. We need to continue focusing efforts on mobilizing the patient.
--- NOTE | 2017-05-24 19:29 | PDOC.PN ---
- Subjective Encounter Start Date: 05/24/17 Encounter Start Time: 19:27 Subjective: seen and examined feeling a little bit better - Objective Vital Signs & Weight: Vital Signs (12 hours) Temp Pulse Pulse Pulse Pulse Resp BP 05/24/17 18:13 61 16 05/24/17 16:06 58 L 22 H 05/24/17 15:43 96.5 F L 57 L 22 H 05/24/17 11:27 68 24 H 05/24/17 11:05 96.0 F L 68 21 H 05/24/17 10:03 70 70 73 118/54 L 05/24/17 08:17 05/24/17 08:14 64 18 05/24/17 08:00 96.6 F L 59 L 18 BP BP Pulse Ox Pulse Ox Pulse Ox Pulse Ox 05/24/17 18:13 97 05/24/17 16:06 98 05/24/17 15:43 112/53 L 97 05/24/17 11:27 99 05/24/17 11:05 105/54 L 94 L 05/24/17 10:03 108/52 L 96 96 96 05/24/17 08:17 96 05/24/17 08:14 99 05/24/17 08:00 97 Weight Admit Weight 192 lb Weight 176 lb 6.4 oz Most Recent Monitor Data Heart Rate from ECG 72 NIBP 118/54 NIBP BP-Mean 68 Respiration from ECG 24 SpO2 97 I&O: 05/23/17 05/24/17 05/25/17 06:59 06:59 06:59 Intake Total 1050 1100 Output Total 2690 1000 400 Balance -1640 100 -400 Result Diagrams: 05/24/17 04:25 05/24/17 04:25 Phys Exam - Physical Examination Constitutional: NAD HEENT: PERRLA, moist MMs, sclera anicteric, TM's clear Neck: no nodes, no JVD, supple Respiratory: wheezing present Cardiovascular: RRR, no significant murmur, no rub Gastrointestinal: soft, non-tender, no distention, positive bowel sounds Musculoskeletal: no edema, pulses present Dx/Plan (1) Acute respiratory failure with hypoxia Code(s): J96.01 - ACUTE RESPIRATORY FAILURE WITH HYPOXIA Status: Acute (2) COPD exacerbation Code(s): J44.1 - CHRONIC OBSTRUCTIVE PULMONARY DISEASE W (ACUTE) EXACERBATION Status: Acute (3) CAD (coronary artery disease) Code(s): I25.10 - ATHSCL HEART DISEASE OF [place] CORONARY ARTERY W/O ANG PCTRS Status: Chronic Qualifiers: (4) CKD (chronic kidney disease) stage 3, GFR 30-59 ml/min Code(s): N18.3 - CHRONIC KIDNEY DISEASE, STAGE 3 (MODERATE) Status: Chronic (5) Chronic combined systolic and diastolic CHF (congestive heart failure) Code(s): I50.42 - CHRONIC COMBINED SYSTOLIC AND DIASTOLIC HRT FAIL Status: Chronic (6) Dyslipidemia Code(s): E78.5 - HYPERLIPIDEMIA, UNSPECIFIED Status: Chronic - Plan continue antibiotics, PT/OT, addiction social worker, respiratory therapy Will need more aggressive PT as tolerated by his pulmonary status * .
[2017-05-25] MEDS: Levothyroxine Sodium 75 MCG TAB PO SCH (04:55)
[2017-05-25] MEDS: Simethicone Chewable 80 MG TAB PO SCH ×4 (09:52→20:29)
[2017-05-25] MEDS: Ferrous Sulfate 325 MG TAB PO SCH (09:52)
[2017-05-25] MEDS: Tamsulosin HCl 0.4 MG CAP PO SCH (09:52)
[2017-05-25] MEDS: Finasteride 5 MG TAB PO SCH (09:53)
[2017-05-25] MEDS: Metoprolol Tartrate 25 MG TAB PO SCH ×2 (09:53→20:29)
[2017-05-25] MEDS: Magnesium Oxide 400 MG TAB PO SCH (09:53)
[2017-05-25] MEDS: guaiFENesin ER 600 MG TAB PO SCH ×2 (09:53→20:29)
[2017-05-25] MEDS: Enoxaparin Sodium 30 MG/0.3 ML SYRINGE SC SCH (09:53)
[2017-05-25] MEDS: Gabapentin 300 MG CAP PO SCH ×3 (09:53→20:29)
[2017-05-25] MEDS: Furosemide 40 MG TAB PO SCH (09:53)
[2017-05-25] MEDS: Oseltamivir 75 MG CAP PO SCH (09:53)
[2017-05-25] MEDS: Multivit, Therapeutic 1 TAB PO SCH (09:53)
[2017-05-25] MEDS: Famotidine 20 MG TAB PO SCH (09:53)
[2017-05-25] MEDS: cefTRIAXone\\ROCEPHIN 1 GM, Syringe 0.4 ML in Sterile Water 9.6 ML SLOW IVP SCH (10:03)
[2017-05-25] MEDS: Azithromycin 500 MG in Sodium Chloride 0.9% 250 ML 250 ML IVPB SCH (10:03)
[2017-05-25] MEDS: TICAGRELOR 60 MG PO SCH ×2 (10:04→20:30)
[2017-05-25] MEDS: Polyethylene Glycol 3350 17 GM Packet PO SCH ×2 (10:04→22:48)
--- NOTE | 2017-05-25 14:12 | PRG ---
DATE OF SERVICE: 05/25/2017 SERVICE: Pulmonary Medicine. INTERVAL HISTORY: Again, the patient says that he is breathing very comfortably this morning. He de nies any overnight events, fevers, chills, nausea, vomiting or other issues. He is returning to his usual state of health, albeit slowly. He remains extraordinarily weak. We are working on mobilizing him as much as he tolerates, but any little activity is quite challenging in him. OBJECTIVE: VITAL SIGNS: Afebrile, pulse 70, blood pressure 122/58, respirations 20, saturation 99% on 2 liters nasal cannula. GENERAL: The patient is awake and alert, in no apparent distress. LUNGS: Decent air entry. There is no prolonged expiratory phase. Rhonchi are present, but clear wi th cough. No rhonchi. HEART: Normal rate and regular. ABDOMEN: Soft, nontender, nondistended. Bowel sounds are positive. MUSCULOSKELETAL: No cyanosis or clubbing. There is no pitting in the bilateral lower extremities. NEUROLOGIC: Grossly nonfocal. LABORATORY DATA: Creatinine is down trending to 1.60. BUN 74. Basic metabolic profile is otherwise unremarkable. Magnesium 3.0, phosphorus 3.7. ASSESSMENT: 1. Acute hypoxic respiratory failure. 2. Chronic obstructive pulmonary disease with acute exacerbation secondary to influenza. 3. Acute on chronic systolic and valvular heart failure, currently euvolemic. 4. Acute kidney injury on chronic kidney disease. PLAN: We will continue on antibiotics, nebulized medications, and steroids. He is off BiPAP complet kerry. As such, he can transition to the telemetry unit. Pulmonary will continue to follow for the ti me being, but he is fast approaching. We will encourage mobility as much as he can tolerate. From a purely respiratory perspective, I do not think he is approaching eligibility for discharge.
[2017-05-25 15:19] VITALS: BMI 26.6
--- NOTE | 2017-05-25 16:42 | PDOC.PN ---
- Subjective Encounter Start Date: 05/25/17 Encounter Start Time: 16:40 Subjective: seen and examined feeling better - Objective Vital Signs & Weight: Vital Signs (12 hours) Temp Pulse Pulse Pulse Resp BP BP 05/25/17 16:00 65 22 H 05/25/17 15:53 71 18 05/25/17 11:21 71 19 05/25/17 11:00 96.2 F L 70 20 05/25/17 10:35 98 69 121/82 122/58 L 05/25/17 08:20 05/25/17 08:16 56 L 22 H 05/25/17 08:00 96.4 F L 56 L 22 H 05/25/17 07:00 96.4 F L 57 L 18 BP Pulse Ox Pulse Ox 05/25/17 16:00 109/51 L 100 05/25/17 15:53 99 05/25/17 11:21 97 05/25/17 11:00 122/58 L 99 05/25/17 10:35 98 05/25/17 08:20 97 05/25/17 08:16 97 05/25/17 08:00 97 05/25/17 07:00 119/54 L 97 Weight Admit Weight 192 lb Weight 175 lb 2 oz Most Recent Monitor Data Heart Rate from ECG 72 NIBP 118/54 NIBP BP-Mean 68 Respiration from ECG 24 SpO2 97 I&O: 05/24/17 05/25/17 05/26/17 06:59 06:59 06:59 Intake Total 1100 720 Output Total 1000 800 Balance 100 -80 Result Diagrams: 05/24/17 04:25 05/24/17 04:25 Phys Exam - Physical Examination Constitutional: NAD HEENT: PERRLA, moist MMs, sclera anicteric, TM's clear Neck: no nodes, no JVD, supple, full ROM Respiratory: no rales Cardiovascular: RRR, no significant murmur Dx/Plan (1) Acute respiratory failure with hypoxia Code(s): J96.01 - ACUTE RESPIRATORY FAILURE WITH HYPOXIA Status: Acute (2) COPD exacerbation Code(s): J44.1 - CHRONIC OBSTRUCTIVE PULMONARY DISEASE W (ACUTE) EXACERBATION Status: Acute (3) CAD (coronary artery disease) Code(s): I25.10 - ATHSCL HEART DISEASE OF [place] CORONARY ARTERY W/O ANG PCTRS Status: Chronic Qualifiers: (4) CKD (chronic kidney disease) stage 3, GFR 30-59 ml/min Code(s): N18.3 - CHRONIC KIDNEY DISEASE, STAGE 3 (MODERATE) Status: Chronic (5) Chronic combined systolic and diastolic CHF (congestive heart failure) Code(s): I50.42 - CHRONIC COMBINED SYSTOLIC AND DIASTOLIC HRT FAIL Status: Chronic (6) Dyslipidemia Code(s): E78.5 - HYPERLIPIDEMIA, UNSPECIFIED Status: Chronic - Plan plan discussed w/ family, PT/OT, social services analyst, respiratory therapy Nebulizer treatment -: Transfer to Telemetry -: Appreciate pulmonary input * .
[2017-05-25] MEDS: Acetaminophen 325 MG TAB PO PRN (20:29)
[2017-05-26] MEDS: Levothyroxine Sodium 75 MCG TAB PO SCH (05:50)
[2017-05-26] MEDS: Polyethylene Glycol 3350 17 GM Packet PO SCH ×2 (07:59→22:57)
[2017-05-26] MEDS: Simethicone Chewable 80 MG TAB PO SCH ×4 (08:28→22:57)
[2017-05-26] MEDS: Furosemide 40 MG TAB PO SCH (08:28)
[2017-05-26] MEDS: Famotidine 20 MG TAB PO SCH (08:29)
[2017-05-26] MEDS: Enoxaparin Sodium 30 MG/0.3 ML SYRINGE SC SCH (08:29)
[2017-05-26] MEDS: Tamsulosin HCl 0.4 MG CAP PO SCH (08:29)
[2017-05-26] MEDS: Ferrous Sulfate 325 MG TAB PO SCH (08:29)
[2017-05-26] MEDS: Finasteride 5 MG TAB PO SCH (08:29)
[2017-05-26] MEDS: Magnesium Oxide 400 MG TAB PO SCH (08:30)
[2017-05-26] MEDS: guaiFENesin ER 600 MG TAB PO SCH ×2 (08:30→22:55)
[2017-05-26] MEDS: Gabapentin 300 MG CAP PO SCH ×3 (08:30→22:56)
[2017-05-26] MEDS: Metoprolol Tartrate 25 MG TAB PO SCH ×2 (08:30→22:55)
[2017-05-26] MEDS: Multivit, Therapeutic 1 TAB PO SCH (08:33)
[2017-05-26] MEDS: Oseltamivir 75 MG CAP PO SCH (08:33)
[2017-05-26] MEDS: TICAGRELOR 60 MG PO SCH ×2 (08:34→22:56)
--- NOTE | 2017-05-26 18:04 | PDOC.PN ---
- Subjective Encounter Start Date: 05/26/17 Encounter Start Time: 18:03 Subjective: Seen and examined feeling better - Objective Vital Signs & Weight: Vital Signs (12 hours) Temp Pulse Pulse Pulse Resp BP BP 05/26/17 15:40 97.1 F L 67 18 05/26/17 14:02 60 14 05/26/17 11:35 96.8 F L 66 16 05/26/17 10:14 63 14 05/26/17 08:39 70 65 149/65 H 124/60 05/26/17 08:30 97.9 F 65 18 05/26/17 07:07 05/26/17 07:06 65 16 BP Pulse Ox Pulse Ox Pulse Ox 05/26/17 15:40 121/59 L 100 05/26/17 14:02 98 05/26/17 11:35 114/57 L 99 05/26/17 10:14 99 05/26/17 08:39 92 L 94 L 05/26/17 08:30 134/76 99 05/26/17 07:07 98 05/26/17 07:06 Weight Admit Weight 192 lb Weight 178 lb 9 oz Most Recent Monitor Data Heart Rate from ECG 72 NIBP 118/54 NIBP BP-Mean 68 Respiration from ECG 24 SpO2 97 I&O: 05/25/17 05/26/17 05/27/17 06:59 06:59 06:59 Intake Total 720 720 Output Total 800 400 Balance -80 320 Result Diagrams: 05/24/17 04:25 05/24/17 04:25 Phys Exam - Physical Examination Constitutional: NAD HEENT: PERRLA, moist MMs, sclera anicteric, TM's clear Neck: no nodes, no JVD, supple, full ROM Respiratory: no wheezing, no rales, no rhonchi, clear to auscultation bilateral Cardiovascular: RRR, no significant murmur, no rub Gastrointestinal: soft, non-tender, no distention, positive bowel sounds Dx/Plan (1) Acute respiratory failure with hypoxia Code(s): J96.01 - ACUTE RESPIRATORY FAILURE WITH HYPOXIA Status: Acute (2) COPD exacerbation Code(s): J44.1 - CHRONIC OBSTRUCTIVE PULMONARY DISEASE W (ACUTE) EXACERBATION Status: Acute (3) CAD (coronary artery disease) Code(s): I25.10 - ATHSCL HEART DISEASE OF [place] CORONARY ARTERY W/O ANG PCTRS Status: Chronic Qualifiers: (4) CKD (chronic kidney disease) stage 3, GFR 30-59 ml/min Code(s): N18.3 - CHRONIC KIDNEY DISEASE, STAGE 3 (MODERATE) Status: Chronic (5) Chronic combined systolic and diastolic CHF (congestive heart failure) Code(s): I50.42 - CHRONIC COMBINED SYSTOLIC AND DIASTOLIC HRT FAIL Status: Chronic (6) Dyslipidemia Code(s): E78.5 - HYPERLIPIDEMIA, UNSPECIFIED Status: Chronic - Plan continue antibiotics, PT/OT, geriatric social work professor, respiratory therapy Possible d/c next 24hrs * .
--- NOTE | 2017-05-26 20:09 | PRG ---
DATE OF SERVICE: 05/26/2017 SERVICE: Pulmonary Medicine. INTERVAL HISTORY: The patient is doing relatively well from a respiratory standpoint. He has been w eaned to room air. He has no specific complaints of fevers, chills, nausea, vomiting. He has no thierno st discomfort. Otherwise, there has been no interval change in his condition. PHYSICAL EXAMINATION: VITAL SIGNS: Afebrile, pulse 67, blood pressure 121/59, respirations 18, saturation 98% on room air. GENERAL: The patient is awake and alert, in no apparent distress. LUNGS: Decent air entry. Rhonchi are present. There is prolonged expiratory phase, but I do not ap preciate wheezing or crackles today. HEART: Normal rate and regular. ABDOMEN: Soft, nontender, nondistended. Bowel sounds are positive. MUSCULOSKELETAL: No cyanosis or clubbing. There is no pitting in the bilateral lower extremities. NEUROLOGIC: Grossly nonfocal. ASSESSMENT: 1. Acute hypoxic respiratory failure. 2. Chronic obstructive pulmonary disease with acute exacerbation, secondary to influenza. 3. Chronic systolic and valvular heart failure, currently euvolemic. 4. Acute kidney injury on chronic kidney disease, resolved. PLAN: The patient is doing fantastic from a respiratory standpoint. At this point, he has no furthe r requirements for Inpatient Pulmonary or Critical Care opinion. I do believe he is stable for trans ition out of the hospital from a purely respiratory perspective. As such, we will sign off. Please call with any additional questions or concerns.
[2017-05-27] MEDS: Levothyroxine Sodium 75 MCG TAB PO SCH (06:50)
[2017-05-27] MEDS: Enoxaparin Sodium 30 MG/0.3 ML SYRINGE SC SCH (08:28)
[2017-05-27] MEDS: Furosemide 40 MG TAB PO SCH (08:28)
[2017-05-27] MEDS: Simethicone Chewable 80 MG TAB PO SCH ×2 (08:28→11:26)
[2017-05-27] MEDS: Gabapentin 300 MG CAP PO SCH ×2 (08:29→14:50)
[2017-05-27] MEDS: Magnesium Oxide 400 MG TAB PO SCH (08:29)
[2017-05-27] MEDS: Finasteride 5 MG TAB PO SCH (08:29)
[2017-05-27] MEDS: Metoprolol Tartrate 25 MG TAB PO SCH (08:29)
[2017-05-27] MEDS: Ferrous Sulfate 325 MG TAB PO SCH (08:29)
[2017-05-27] MEDS: Famotidine 20 MG TAB PO SCH (08:29)
[2017-05-27] MEDS: Oseltamivir 75 MG CAP PO SCH (08:30)
[2017-05-27] MEDS: Multivit, Therapeutic 1 TAB PO SCH (08:30)
[2017-05-27] MEDS: Tamsulosin HCl 0.4 MG CAP PO SCH (08:30)
[2017-05-27] MEDS: TICAGRELOR 60 MG PO SCH (08:33)
[2017-05-27] MEDS: Polyethylene Glycol 3350 17 GM Packet PO SCH (08:34)
[2017-05-27] MEDS ORDERED: guaiFENesin ER 600 MG TAB PO PRN (12:28)
[2017-05-27 15:30] VITALS: BP 116/58; TEMP 98.2
--- NOTE | 2017-06-18 15:06 | EKG ---
Test Reason : Blood Pressure : / mmHG Vent. Rate : 093 BPM Atrial Rate : 093 BPM P-R Int : 152 ms QRS Dur : 136 ms QT Int : 404 ms P-R-T Axes : 072 -89 053 degrees QTc Int : 502 ms Sinus rhythm with sinus arrhythmia with occasional Premature ventricular complexes Right bundle branch block Left anterior fascicular block Bifascicular block Abnormal ECG Confirmed by IMANI CARDENAS MD ([id number]), continuity editor CARLENE SEGOVIA ([id number]) on 06/18/2017 3:06:39 PM Referred By: Confirmed By:IMANI CARDENAS MD
== END 2017-05-27 16:29 | DRG 189 ==
LOC: ERS 19:53 → 2NO 22:18 → CCU 05-20 12:38 → IMCU/EMU 05-21 07:31 → 2NO 05-26 07:40
PROVIDERS: ADMIT Internal Medicine; ATTEND Internal Medicine
PROC: 5A09457 Assistance with Respiratory Ventilation, 24-96 Consecutive Hours, Continuous Positive Airway Pressure (ICD-10-PCS; principal; 2017-05-19)
DX: J96.01 Acute respiratory failure with hypoxia (principal); N17.9 Acute kidney failure, unspecified; I50.23 Acute on chronic systolic (congestive) heart failure; J44.1 Chronic obstructive pulmonary disease with (acute) exacerbation; N39.0 Urinary tract infection, site not specified; I13.0 Hypertensive heart and chronic kidney disease with heart failure and stage 1 through stage 4 chronic kidney disease, or unspecified chronic kidney disease; J96.02 Acute respiratory failure with hypercapnia; E20.9 Hypoparathyroidism, unspecified; N40.0 Benign prostatic hyperplasia without lower urinary tract symptoms; I25.10 Atherosclerotic heart disease of native coronary artery without angina pectoris; J11.1 Influenza due to unidentified influenza virus with other respiratory manifestations; I34.0 Nonrheumatic mitral (valve) insufficiency; I73.9 Peripheral vascular disease, unspecified; I48.91 Unspecified atrial fibrillation; Z86.73 Personal history of transient ischemic attack (TIA), and cerebral infarction without residual deficits; K21.9 Gastro-esophageal reflux disease without esophagitis; F03.90 Unspecified dementia, unspecified severity, without behavioral disturbance, psychotic disturbance, mood disturbance, and anxiety; E03.9 Hypothyroidism, unspecified; D64.9 Anemia, unspecified; Z87.891 Personal history of nicotine dependence; B96.20 Unspecified Escherichia coli [E. coli] as the cause of diseases classified elsewhere; N18.3 Chronic kidney disease, stage 3 (moderate); E78.5 Hyperlipidemia, unspecified
CPT/HCPCS: 36415; 36416; 71045; 80048; 80053; 82553; 82805; 83735; 83880; 84100; 84484; 85025; 87633; 87798; 93005; 93798; 94660; 96365; A4216; G8978-GP-CM; G8979-GP-CI; J0456; J0696; J1650; J1940; J2920; J3475; J7050; J7611; J7620; Q0162

== ENCOUNTER 2017-08-03 08:08 | Inpatient (IN) | payer MEDICARE ==
[2017-08-03 08:41] LABS: #Eosinphils 0.2 thou/uL (0.0-0.7); #Lymphocytes 0.7 thou/uL (1.20-3.40); #Neutrophils 8.4 thou/uL (1.40-6.50); %Basophils 0.3 % (0.0-1.0); %Eosinophils 2.3 % (0.0-10.0); %Lymphocytes 7.1 % (21.0-51.0); %Monocytes 9.9 % (0.0-10.0); %Neutrophils 80.4 % (42.0-75.0); Hemoglobin 10.8 g/dL (14.0-18.0); Mean Corpuscular HGB CONC 33.3 g/dL (32.0-36.0); Mean Corpuscular Hemoglobin 30.5 pg (27.0-31.0); Mean Corpuscular Volume 91.7 fl (80.0-94.0); Mean Platelet Volume 7.5 fL (7.4-10.4); Platelet Count 128 thou/uL (130-400); RBC Distribution Width 16.5 % (11.5-14.5); Red Blood Cell (RBC) Count 3.56 mill/uL (4.70-6.10); White Blood Cell (WBC) Count 10.4 thou/uL (4.8-10.8)
--- NOTE | 2017-08-03 08:55 | RAD ---
PORTABLE AP CHEST X-RAY: 08/03/2017 HISTORY: Shortness of breath and cough. 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 The cardiac silhouette is magnified by projec tion. There is slight asymmetry in the right lung markings compared to the left. This is probably r elated to mild patient rotation. The lungs are otherwise clear. No focal consolidation or pleural f luid is seen. The thoracic aorta is ectatic and partially calcified. No other interval change. IMPRESSION: Stable chest without evidence of an acute cardiopulmonary process. POS: [facility]
[2017-08-03 08:59] LABS: ALT (SGPT) 14 U/L (8-55); AST (SGOT) 15 U/L (5-34); Albumin 3.5 g/dL (3.4-4.8); Alkaline Phosphatase 48 U/L (40-150); Anion Gap 9 mmol/L (10-20); BUN (Urea Nitrogen) 28 mg/dL (8.4-25.7); Bilirubin, Total 1.3 mg/dL (0.2-1.2); CK (CPK) 194 U/L (30-200); Calc. Creatinine Clearance 0 mL/min (70-130); Calcium 8.8 mg/dL (7.8-10.44); Carbon Dioxide 31 mmol/L (23-31); Chloride 100 mmol/L (98-107); Estimated GFR-MDRD 39; Globulin 2.7 g/dL (2.4-3.5); Glucose 147 mg/dL (83-110); Lipase 4 U/L (8-78); Potassium 3.9 mmol/L (3.5-5.1); Protein, Total 6.2 g/dL (5.8-8.1); Sodium 136 mmol/L (136-145)
[2017-08-03 09:02] LABS: CKMB 1.6 ng/mL (0-6.6); Troponin I 0.158 ng/mL (< 0.028)
[2017-08-03] MEDS ORDERED: Albuterol Sulfate 2.5 mg/3 ml Neb ONE (09:06)
--- NOTE | 2017-08-03 09:58 | ULT ---
LEFT LOWER EXTREMITY VENOUS ULTRASOUND WITH DOPPLER: HISTORY: Edema. COMPARISON: None. TECHNIQUE: Sethi-scale, color-flow, Doppler imaging, and spectral wave-form analysis is performed of the left low er extremity venous system. FINDINGS: There is edema at the level of the posterior tibial vein. There is compressibility, presence of flow, and augmentation of the common femoral vein, femoral vein , and popliteal vein. There is flow in the posterior tibial vein. There is flow in the greater saph enous vein and in the profunda vein. IMPRESSION: 1. No evidence of thrombus in the left lower extremity venous system. 2. Left lower extremity edema. POS: [facility]
[2017-08-03] MEDS ORDERED: Furosemide 40 MG/4 ML VIAL ONE (10:56)
[2017-08-03] MEDS ORDERED: Milk Of Magnesia 30 ML UDCUP PO PRN (11:05)
[2017-08-03] MEDS ORDERED: Acetaminophen 325 MG TAB PO PRN (11:05)
--- NOTE | 2017-08-03 14:20 | HP ---
PRIMARY CARE PHYSICIAN: None. PRESENTING COMPLAINT: Shortness of breath. HISTORY OF PRESENT ILLNESS: Mr. Marcus Casillas Jr., is an 87-year-old male with a past medical history of COPD; CAD, status post CABG; CHF; BPH; hyperlipidemia; CKD; mitral regurgitation; aortic regurgit ation; and aortic stenosis, who presented to the emergency room with a 3-day history of fever, cough productive of white and then greenish sputum, wheezing, shortness of breath, and extremity swelling. His symptoms started about 3 days ago and now has been getting progressively worse. He also had a f ever, although his temperature was not taken. He denies chills, nausea, vomiting, diarrhea. He has no other symptoms. No abdominal and no urinary symptoms. At emergency room, he was found to be in m ild respiratory distress with respiratory rates ranging between 22-25. He was on nasal cannula oxyge n (patient uses oxygen at his [facility]). Labs significant for BUN/creatinine of 28/1.68, which s eems to be the patient's baseline; however, BNP was markedly elevated at over 1400, which is higher t farris his previous numbers, and an initial troponin was 0.158. His chest x-ray done at the emergency r oom revealed stable chest without evidence of acute cardiopulmonary process. EKG showed no signs of acute ischemia. Physical examination was only remarkable for bilateral lower extremity edema. He had a left erythema tous lower extremity, but a venous ultrasound was done and did not show any DVT. He was thus admitte d for CHF exacerbation and started on furosemide and admitted to the Internal Medicine service. PAST MEDICAL HISTORY: As stated in the HPI. PAST SURGICAL HISTORY: Status post CABG. FAMILY HISTORY: Reviewed and noncontributory. SOCIAL HISTORY: Former smoker; last smoked in 2002. He does not drink alcohol or use illicit drugs. ALLERGIES: EZETIMIBE AND SIMVASTATIN. HOME MEDICATIONS: Acetaminophen with codeine 300 mg/30 mg tablets 1 every 6 hours p.r.n. for pain, a lbuterol sulfate 2 puffs inhaled every 4 hours as needed, ascorbic acid 500 mg daily, aspirin 81 mg d aily, D-mannose 4 capsules daily, ferrous sulfate 325 mg daily, finasteride 5 mg daily, furosemide 40 mg daily at 40 mg a.c., gabapentin 600 mg t.i.d., guaifenesin 600 mg q.12 hours, ipratropium/albuter ol sulfate 3 mL nebulized q.2 hours p.r.n., isosorbide mononitrate 30 mg daily, levothyroxine 75 mcg daily, magnesium oxide 400 mg daily, multivitamin 1 tab daily, polyethylene glycol 17 grams p.o. b.i. d., prednisone 5 mg daily, simethicone 80 mg a.c. and at bedtime, tamsulosin 0.4 mg daily, ticagrelor 60 mg b.i.d. REVIEW OF SYSTEMS: Twelve-point review of systems conducted and negative except as stated in HPI. PHYSICAL EXAMINATION: VITAL SIGNS: Temperature 97.9 degrees Fahrenheit, pulse 77, respiratory rate 22, oxygen saturation 9 8% on 2 liters of nasal cannula, blood pressure 151/70. GENERAL: Not in acute distress, sitting comfortably in bed. HEENT: Normocephalic, atraumatic. Mild JVD. PERRLA, EOMI, not pale, anicteric. RESPIRATORY: Rales and crackles in bilateral lung berrios, reduced breath sounds bilaterally. CARDIOVASCULAR: S1 and S2 only. No murmurs, no rubs, no gallops. Marked bilateral lower extremity edema 2+. ABDOMEN: Soft, nontender, nondistended. Bowel sounds positive. No hepatosplenomegaly. MUSCULOSKELETAL: No skeletal abnormalities. SKIN: Warm and dry. Erythema in left lower extremity. NEUROLOGIC: Alert and well oriented. No focal deficits. PSYCHIATRIC: Normal mood and affect. LABORATORY DATA: Significant labs as stated in HPI. IMAGING: Chest x-ray as stated in HPI. ASSESSMENT AND PLAN: 1. Acute on chronic congestive heart failure exacerbation. Patient is coming in with congestive hea rt failure exacerbation. This is likely from dietary noncompliance. His last ejection fraction was 40%-45% done in 03/2016. He has been started on IV diuretics. Cardiology consulted. He will be mon itored on telemetry. His ins and outs and daily weights will also be closely documented. We will co ntinue on his home medications once confirmed. His hospital stay is expected to be between 3-5 days. 2. Hypothyroidism. We will check a TSH and continue on levothyroxine. 3. Coronary artery disease, status post coronary artery bypass grafting. The patient is chest pain free. His troponin is elevated and this is likely from type 2 fci-BR-adxruegdi myocardial infarction due to demand ischemia. We will trend troponins. 4. Chronic obstructive pulmonary disease is not in acute exacerbation. We will continue on DuoNeb a nd albuterol p.r.n. 5. Pneumonia. Patient presented with fever, cough productive of greenish sputum, and mild shortness of breath. He will be started on IV levofloxacin. We will monitor his response. 6. Hyperlipidemia. We will continue on statins. 7. Chronic kidney disease. He has a history of chronic kidney disease, stage 3. He seems to be at his baseline. We will monitor creatinine. 8. Also, for his heart failure, we will put him on p.o. potassium, as he is on IV diuretics. CODE STATUS: The patient's code status was discussed extensively. Discussion took over 16 minutes a nd he has decided to remain FULL CODE.
[2017-08-03 14:43] LABS: Troponin I 0.158 ng/mL (< 0.028)
[2017-08-03] MEDS: Furosemide 20 MG/2 ML VIAL SLOW IVP SCH (14:54)
[2017-08-03] MEDS ORDERED: Heparin 5,000 UNITS/ML VIAL SC SCH (15:00)
[2017-08-03 21:04] LABS: Troponin I 0.094 ng/mL (< 0.028)
[2017-08-03] MEDS: Docusate 100 MG CAP PO SCH (21:14)
[2017-08-03] MEDS: Famotidine 20 MG TAB PO SCH (21:14)
[2017-08-04] MEDS: Albuterol Sulfate 2.5 mg/3 ml Neb NEB PRN ×2 (03:20→05:06)
[2017-08-04 04:41] LABS: #Lymphocytes 0.4 thou/uL (1.20-3.40); #Monocytes 0.3 thou/uL (0.11-0.59); #Neutrophils 5.5 thou/uL (1.40-6.50); %Eosinophils 0.1 % (0.0-10.0); %Lymphocytes 5.7 % (21.0-51.0); %Monocytes 5.1 % (0.0-10.0); %Neutrophils 89.1 % (42.0-75.0); Hemoglobin 10.3 g/dL (14.0-18.0); Mean Corpuscular HGB CONC 33.2 g/dL (32.0-36.0); Mean Corpuscular Hemoglobin 30.1 pg (27.0-31.0); Mean Corpuscular Volume 90.7 fl (80.0-94.0); Mean Platelet Volume 7.5 fL (7.4-10.4); Platelet Count 129 thou/uL (130-400); RBC Distribution Width 15.9 % (11.5-14.5); White Blood Cell (WBC) Count 6.2 thou/uL (4.8-10.8)
[2017-08-04 04:53] LABS: Anion Gap 15 mmol/L (10-20); BUN (Urea Nitrogen) 35 mg/dL (8.4-25.7); Calc. Creatinine Clearance 37 mL/min (70-130); Calcium 8.5 mg/dL (7.8-10.44); Carbon Dioxide 28 mmol/L (23-31); Chloride 99 mmol/L (98-107); Estimated GFR-MDRD 39; Glucose 167 mg/dL (83-110); Potassium 3.5 mmol/L (3.5-5.1); Sodium 138 mmol/L (136-145)
[2017-08-04] MEDS: Furosemide 20 MG/2 ML VIAL SLOW IVP SCH ×2 (06:50→16:58)
[2017-08-04 07:36] VITALS: BMI 28.4
[2017-08-04] MEDS ORDERED: Acetaminophen/Codeine 30-300mg Tablet PO PRN (07:40)
[2017-08-04] MEDS ORDERED: TICAGRELOR 60 MG PO SCH (09:00)
[2017-08-04] MEDS ORDERED: predniSONE 5 MG TAB PO SCH ×2 (09:00→10:25)
[2017-08-04] MEDS ORDERED: Non-Formulary Item 1 EACH (Gabapentin [Gabapentin] 600 MG) PO SCH (09:00)
[2017-08-04] MEDS ORDERED: Levothyroxine Sodium 25 MCG TAB PO SCH (09:00)
[2017-08-04] MEDS ORDERED: Non-Formulary Item 1 EACH (Prednisone [Prednisone] 5 MG) PO SCH (09:00)
--- NOTE | 2017-08-04 09:38 | CON ---
DATE OF CONSULTATION: 08/03/2017 CARDIOLOGY CONSULT NOTE INDICATION FOR CONSULTATION: An 87-year-old patient was admitted with increasing shortness of breath, dyspnea on exertion. He has a history of multiple medical problems including CHF, diastolic dysfunction, coronary artery disease, status post bypass surgery, stent placements, and also COPD and this appears to be COPD exacerbation and also CHF exacerbation. HISTORY OF PRESENT ILLNESS: This is a very unfortunate gentleman, who has multiple medical problems as noted above, is a [facility] resident, has been complaining of increasing shortness of breath and dyspnea for the last couple days and started wheezing and became worse. He says he is almost unable to eat due to coughing and wheezing and not being able to breathe. He also had a low grade fever at least according to the patient. I do not see that he has a fever at this time. He was admitted to the hospital after being seen in the emergency room. He denied any chest pain, but he has had extensive past medical history for coronary artery disease. His last cardiac catheterization was in 03/[address] Benítez, where he underwent repeat angioplasty and stent placement to the saphenous vein graft to a diagonal branch with a 4.0 x 16 drug- eluting stent. He also had an angioplasty to the obtuse marginal branch to the left circumflex for a previously placed stent in the left circumflex with a 2.25 x 12 mm drug-eluting stent (to the [place] vessels) with a stent placement also at that time, but he did not have further angioplasty and stent placement to the saphenous vein graft to the obtuse marginal branch, which had already previously been stented. He also has a history of having a ARRIAZA to the left anterior descending artery, which is a small vessel, but does apparently have remained stable. He had an echocardiogram also performed in 03/2016, which showed ejection fraction of 40% to 45% with [id number]-yo-ypshog mitral valve regurgitation, moderate tricuspid valve regurgitation, and 2/3 diastolic dysfunction. He also had left atrial dilatation at that time. From a cardiac standpoint, he appears to have congestive heart failure at this time, most likely systolic as well as diastolic. His BNP is elevated at 1415. He has been given IV Lasix and seems to be diuresing. He also was found on this admission to have a cellulitis of right lower extremity with bilateral lower extremity edema, which he said he was unaware of. It appears that he may have been following up with the route agent at [facility], most likely Dr. Sanabria; however, the patient is unclear about this. He did tell me he had a stress test last week, but I am uncertain as to whether or not he understands exactly what has occurred. He does appear to be somewhat confused and has some history of dementia. I am uncertain whether he has been followed on a routine basis. I believe he was last seen by Dr. Benítez when he was in the hospital here in 2016. PAST MEDICAL HISTORY: His past medical history is significant for the coronary artery disease. Mainly, he has had a hernia repair. He has a history of hyperlipidemia, peripheral vascular disease, dementia. He has a history of cardiomyopathy with ejection fraction of 25% to 30% in the past, but that had increased up to 40% to 45%. He has chronic kidney disease, gastroesophageal reflux disease, chronic anemia. SOCIAL HISTORY: He resides in a [facility]. He smoked in the past, but stopped many years ago. He has no alcohol or tobacco abuse at this time. FAMILY HISTORY: Noncontributory. ALLERGIES: There is some mention in the chart that he has an allergy to SIMVASTATIN and ZETIA. MEDICATIONS: His medications at this time include, Tylenol, albuterol treatments, aspirin 81 mg, Pepcid, furosemide IV 20 mg b.i.d., heparin subcutaneous 3 times a day, 5000 units, and levofloxacin as well as magnesium. His medications prior to admission did include also Brilinta, Imdur, Lasix, and aspirin. In the emergency room, he was given steroids and nitroglycerin and DuoNebs. REVIEW OF SYSTEMS: He complains of a cough, wheezing, shortness of breath, and some mild fever. Otherwise, 12-point review of systems is unremarkable, but he did not even know that he did have lower extremity edema. He said he has been going to rehabilitation and has been doing quite well and did describe some of the exercises, which he apparently had been doing. PHYSICAL EXAMINATION: GENERAL: Reveals an elderly gentleman. He is in no acute distress at this time. He does appear to be somewhat confused about the events of his past medical history. VITAL SIGNS: Blood pressure is 151/70, heart rate is 77 and regular, he is afebrile, respiratory rate 22, and O2 saturations are 98%. HEENT: Shows the head to be normocephalic and atraumatic. Carotid pulses are present. He has a left carotid bruit. CHEST: His chest has diffuse wheezing throughout and expiratory. I did not hear any gross rhonchi or rales. CARDIOVASCULAR: He has a well-healed midline surgical incision after median sternotomy. He has a systolic murmur at the apex at least 2-3/6. He also has a systolic murmur at the lower sternal border. ABDOMEN: Abdominal exam shows obesity with positive bowel sounds. EXTREMITIES: Show 1-2+ lower extremity edema. I cannot palpate a right popliteal pulse, left popliteal pulse was present, but decreased. I cannot palpate pedal pulses. He does have 1+ lower extremity edema. He also has erythema of the left lower extremity extending all the way down and also to the foot, which appears to be some mild cellulitis. DIAGNOSTIC STUDIES: EKG shows a normal sinus rhythm with a right bundle branch block and evidence of right ventricular hypertrophy in 2016. He also had a right bundle branch block with a left anterior fascicular block, this is not under finding. IMPRESSION: 1. Chronic obstructive pulmonary disease exacerbation and would agree with steroids and antibiotics as well as nebulized treatments. 2. Congestive heart failure exacerbation. He has a 2/3 diastolic dysfunction on previous echocardiogram as well as a decreased ejection fraction. The last echo that I have on record was in 2016, which showed ejection fraction of 40% to 45%, but previously had a worse ejection fraction of 25% to 30%. We will repeat the echocardiogram for evaluation of his systolic as well as diastolic function, also his valvular heart disease. 3. Coronary artery disease. He is status post coronary artery disease, bypass surgery and stent. This appears to be stable. 4. Hyperlipidemia. He should continue his medications once he is taking a regular diet again. 5. Peripheral vascular disease. He has decreased pedal pulses. This will need to be addressed may be in the future if he becomes more symptomatic with this. He denies any significant claudication symptoms. 6. History of dementia. I cannot tell what the baseline actually is, but this may be actually his baseline. 7. Chronic kidney disease. His creatinine is 1.68. This will need to be followed. He may actually worsen this and mostly becomes diuresed. 8. History of anemia of chronic disease. His hemoglobin was 10.8 and this appears to be relatively stable from previous evaluations. 9. Left lower extremity cellulitis. We will watch this and he is already on antibiotics. We will continue antibiotics. Further recommendations will depend on the echocardiogram and the progress of the patient's admission. His troponin I was 0.158 with a BNP of 1415. I would agree with the heparin at this time. It is possible the patient has suffered a non-ST segment elevation myocardial infarction, this may be due to demand ischemia. ROGELIO
[2017-08-04] MEDS: Potassium Chloride 20 MEQ TAB PO SCH (09:55)
[2017-08-04] MEDS: Ferrous Sulfate 325 MG TAB PO SCH (09:55)
[2017-08-04] MEDS: Docusate 100 MG CAP PO SCH ×2 (09:55→20:56)
[2017-08-04] MEDS: Simethicone Chewable 80 MG TAB PO SCH ×3 (09:55→20:56)
[2017-08-04] MEDS: Gabapentin 300 MG CAP PO SCH ×3 (09:56→20:56)
[2017-08-04] MEDS: Multivit, Therapeutic 1 TAB PO SCH (09:56)
[2017-08-04] MEDS: TICAGRELOR 90 MG TABLET PO SCH ×2 (09:56→20:55)
[2017-08-04] MEDS: Magnesium Oxide 400 MG TAB PO SCH (09:58)
[2017-08-04] MEDS: Tamsulosin HCl 0.4 MG CAP PO SCH (09:58)
[2017-08-04] MEDS: Polyethylene Glycol 3350 17 GM Packet PO SCH ×2 (10:00→20:57)
[2017-08-04] MEDS: Finasteride 5 MG TAB PO SCH (10:00)
--- NOTE | 2017-08-04 10:27 | PDOC.PN ---
- Subjective Encounter Start Date: 08/04/17 Encounter Start Time: 10:32 Subjective: No new complaints. No acute events overnight -: Diuresing well. - Objective MAR Reviewed: Yes Vital Signs & Weight: Vital Signs (12 hours) Temp Pulse Resp BP Pulse Ox 08/04/17 08:00 98.1 F 77 16 95 08/04/17 07:45 98.1 F 77 16 134/63 95 08/04/17 07:35 77 16 96 08/04/17 05:06 75 16 95 08/04/17 04:00 98.0 F 74 16 122/58 L 91 L 08/03/17 23:55 76 18 95 Weight Admit Weight 189 lb 14.4 oz Weight 187 lb I&O: 08/03/17 08/04/17 08/05/17 06:59 06:59 06:59 Intake Total 750 Balance 750 Result Diagrams: 08/04/17 04:29 08/04/17 04:29 Phys Exam - Physical Examination Constitutional: NAD HEENT: PERRLA, moist MMs, sclera anicteric Neck: no JVD, supple, full ROM Respiratory: no rhonchi, wheezing present, clear to auscultation bilateral Cardiovascular: RRR, no significant murmur, no rub Gastrointestinal: soft, non-tender, no distention, positive bowel sounds Musculoskeletal: pulses present, edema present Neurological: non-focal, moves all 4 limbs Psychiatric: normal affect, A&O x 3 Skin: no rash, normal turgor Dx/Plan (1) Chronic combined systolic and diastolic CHF (congestive heart failure) Code(s): I50.42 - CHRONIC COMBINED SYSTOLIC AND DIASTOLIC HRT FAIL Status: Acute Comment: Improving with diuresis. Monitor I/O, weights and potassium. EF on 08/03 w EF 20-25% (2) COPD exacerbation Code(s): J44.1 - CHRONIC OBSTRUCTIVE PULMONARY DISEASE W (ACUTE) EXACERBATION Status: Acute Comment: Continue nebs, steroids, antibiotics and O2 as needed. Improving. (3) PVD (peripheral vascular disease) Code(s): I73.9 - PERIPHERAL VASCULAR DISEASE, UNSPECIFIED Status: Acute (4) Cellulitis Code(s): L03.90 - CELLULITIS, UNSPECIFIED Status: Acute Qualifiers: Site of cellulitis: extremity Site of cellulitis of extremity: lower extremity Laterality: left Qualified Code(s): L03.116 - Cellulitis of left lower limb Comment: Improving with antibiotics. US ruled out DVT (5) CAD (coronary artery disease) Code(s): I25.10 - ATHSCL HEART DISEASE OF [place] CORONARY ARTERY W/O ANG PCTRS Status: Chronic Qualifiers: Coronary Disease-Associated Artery/Lesion type: bypass graft [place] vs. transplanted heart: [place] heart Associated angina: without angina Qualified Code(s): I25.810 - Atherosclerosis of coronary artery bypass graft(s) without angina pectoris Comment: Chest pain free. Stable. Will continue home medications. (6) CKD (chronic kidney disease) stage 3, GFR 30-59 ml/min Code(s): N18.3 - CHRONIC KIDNEY DISEASE, STAGE 3 (MODERATE) Status: Chronic Comment: At baseline (7) Dyslipidemia Code(s): E78.5 - HYPERLIPIDEMIA, UNSPECIFIED Status: Chronic Comment: Continue Statins (8) Physical deconditioning Code(s): R53.81 - OTHER MALAISE Status: Chronic Comment: Walking program. (9) Thrombocytopenia Code(s): D69.6 - THROMBOCYTOPENIA, UNSPECIFIED Status: Acute Comment: Monitor. No signs of acute bleeding. hold heparin based products (10) Chronic respiratory failure with hypoxia Code(s): J96.11 - CHRONIC RESPIRATORY FAILURE WITH HYPOXIA Status: Chronic Comment: On Home O2. Likely 2/2 combination of CHF and COPD. (11) Dementia Code(s): F03.90 - UNSPECIFIED DEMENTIA WITHOUT BEHAVIORAL DISTURBANCE Status: Acute Qualifiers: Dementia type: unspecified type Dementia behavioral disturbance: without behavioral disturbance Qualified Code(s): F03.90 - Unspecified dementia without behavioral disturbance Comment: Seems to be at baseline. Ensure delirium precautions. - Plan cont current plan of care, continue antibiotics, PT/OT * . Review of Systems - Medications/Allergies Allergies/Adverse Reactions: Allergies Allergy/AdvReac Type Severity Reaction Status Date / Time ezetimibe [From Vytorin] AdvReac Verified 11/23/16 13:14 simvastatin [From Vytorin] AdvReac Verified 11/23/16 13:14 Medications: Current Medications Acetaminophen (Tylenol) 650 mg PO Q4H PRN PRN Reason: Headache/Fever or Pain Acetaminophen/Codeine Phosphate (Tylenol #3) 1 tab PO Q6H PRN PRN Reason: Pain Albuterol Sulfate (Ventolin) 2.5 mg NEB [id number] PRN PRN Reason: Wheezing Last Admin: 08/04/17 05:06 Dose: 2.5 mg Albuterol/Ipratropium (Duoneb) 3 ml NEB [id number] PRN PRN Reason: SOB &/or Wheezing Last Admin: 08/04/17 07:35 Dose: 3 ml Aspirin (Aspirin Chewable) 81 mg PO DAILY [facility] Last Admin: 08/04/17 10:01 Dose: 81 mg Aspirin (Aspirin Chewable) 81 mg PO DAILY [facility] Last Admin: 08/04/17 09:26 Dose: Not Given Docusate Sodium (Colace) 100 mg PO BID [facility] Last Admin: 08/04/17 09:55 Dose: 100 mg Famotidine (Pepcid) 20 mg PO QPM [facility] Last Admin: 08/03/17 21:14 Dose: 20 mg Ferrous Sulfate (Feosol) 325 mg PO DAILY [facility] Last Admin: 08/04/17 09:55 Dose: 325 mg Finasteride (Proscar) 5 mg PO DAILY [facility] Last Admin: 08/04/17 10:00 Dose: 5 mg Furosemide (Lasix) 20 mg SLOW IVP 0600,1400 [facility] Last Admin: 08/04/17 06:50 Dose: 20 mg Gabapentin (Neurontin) 600 mg PO TID [facility] Last Admin: 08/04/17 09:56 Dose: 600 mg Guaifenesin/Dextromethorphan (Robitussin Dm) 15 ml PO Q4H PRN PRN Reason: Cough Levofloxacin 500 mg/ Device 100 mls @ 100 mls/hr IVPB 1000 [facility] Last Admin: 08/04/17 09:56 Dose: 100 mls Isosorbide Mononitrate (Imdur Er) 30 mg PO DAILY [facility] Last Admin: 08/04/17 09:56 Dose: 30 mg Levothyroxine Sodium (Synthroid) 75 mcg PO 0600 [facility] Magnesium Hydroxide (Milk Of Magnesium) 30 ml PO DAILYPRN PRN PRN Reason: Constipation Magnesium Oxide (Magnesium Oxide) 400 mg PO DAILY [facility] Last Admin: 08/04/17 09:58 Dose: 400 mg Multivitamins (Theragran) 1 tab PO DAILY [facility] Last Admin: 08/04/17 09:56 Dose: 1 tab Polyethylene Glycol (Miralax) 17 gm PO BID [facility] Last Admin: 08/04/17 10:00 Dose: 17 gm Potassium Chloride (K-Dur) 20 meq PO QAM-WM [facility] Last Admin: 08/04/17 09:55 Dose: 20 meq Prednisone (Prednisone) 5 mg PO DAILY [facility] Last Admin: 08/04/17 09:59 Dose: 5 mg Simethicone (Mylicon Chewable) 80 mg PO ACHS [facility] Last Admin: 08/04/17 09:55 Dose: 80 mg Sodium Chloride (Flush - Normal Saline) 10 ml IVF Q12HR [facility] Last Admin: 08/04/17 10:01 Dose: 10 ml Sodium Chloride (Flush - Normal Saline) 10 ml IVF PRN PRN PRN Reason: Saline Flush Tamsulosin HCl (Flomax) 0.4 mg PO DAILY [facility] Last Admin: 08/04/17 09:58 Dose: 0.4 mg Ticagrelor (Brilinta) 60 mg PO BID [facility] Last Admin: 08/04/17 09:56 Dose: 60 mg
[2017-08-04] MEDS ORDERED: predniSONE 20 MG TAB PO SCH (11:00)
--- NOTE | 2017-08-04 17:01 | PDOC.CTH ---
Cardiology Progress Note - Subjective He is still SOB at rest and cannot lay flat. - Objective Vital Signs Temp Pulse Resp BP Pulse Ox 08/04/17 15:00 98.2 F 75 20 118/58 L 95 08/04/17 14:06 74 18 95 08/04/17 11:25 83 20 95 08/04/17 08:00 98.1 F 77 16 95 08/04/17 07:45 98.1 F 77 16 134/63 95 08/04/17 07:35 77 16 96 08/04/17 05:06 75 16 95 Admit Weight 189 lb 14.4 oz Weight 187 lb 08/03/17 08/04/17 08/05/17 06:59 06:59 06:59 Intake Total 750 Balance 750 - Physical Examination General/Neuro: alert & oriented x3 Neck: no JVD present Lungs: other: (bilat crackles.) Heart: RRR Abdomen: NT/ND Extremities: + edema B (1+) - Telemetry Telemetry Rhythm: NSR - Labs Result Diagrams: 08/04/17 04:29 08/04/17 04:29 Troponin/CKMB CK-MB (CK-2) 1.6 ng/mL (0-6.6) 08/03/17 08:33 Troponin I 0.094 ng/mL (< 0.028) H 08/03/17 20:20 - Assessment/Plan 1. Acute on chronic systolic heart failure 2. 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 3. CAD, s/p CABG in the past 4. Worsening CM, EF reduced as compared to 2 yrs ago. now at 20-25% PLAN: - Continue IV diuresis. - Both LV function and aortic valve have worsened since last evaluation. Will request records from Dr. Sanabria to see what the situation has been in the interim. - He would be a candidate for TAVR not SAVR given his advanced age, LV dysfunction and previous bypass. - Will follow.
[2017-08-04] MEDS: Famotidine 20 MG TAB PO SCH (20:56)
[2017-08-05] MEDS: Guaifenesin DM 100-10/5 ML UDCUP PO PRN (05:00)
[2017-08-05 05:42] LABS: #Basophils 0.1 thou/uL (0.0-0.2); #Lymphocytes 0.4 thou/uL (1.20-3.40); #Monocytes 0.5 thou/uL (0.11-0.59); #Neutrophils 8.1 thou/uL (1.40-6.50); %Basophils 0.6 % (0.0-1.0); %Eosinophils 0.1 % (0.0-10.0); %Lymphocytes 4.8 % (21.0-51.0); %Monocytes 5.3 % (0.0-10.0); %Neutrophils 89.2 % (42.0-75.0); Hemoglobin 9.9 g/dL (14.0-18.0); Mean Corpuscular HGB CONC 31.8 g/dL (32.0-36.0); Mean Corpuscular Hemoglobin 29.1 pg (27.0-31.0); Mean Corpuscular Volume 91.3 fl (80.0-94.0); Mean Platelet Volume 7.2 fL (7.4-10.4); Platelet Count 139 thou/uL (130-400); RBC Distribution Width 15.9 % (11.5-14.5); Red Blood Cell (RBC) Count 3.39 mill/uL (4.70-6.10); White Blood Cell (WBC) Count 9.1 thou/uL (4.8-10.8)
[2017-08-05 05:50] LABS: Anion Gap 12 mmol/L (10-20); BUN (Urea Nitrogen) 36 mg/dL (8.4-25.7); Calc. Creatinine Clearance 38 mL/min (70-130); Calcium 8.9 mg/dL (7.8-10.44); Carbon Dioxide 31 mmol/L (23-31); Chloride 100 mmol/L (98-107); Estimated GFR-MDRD 42; Glucose 157 mg/dL (83-110); Potassium 3.8 mmol/L (3.5-5.1); Sodium 139 mmol/L (136-145)
[2017-08-05] MEDS: Levothyroxine Sodium 75 MCG TAB PO SCH (06:36)
[2017-08-05] MEDS: Furosemide 20 MG/2 ML VIAL SLOW IVP SCH ×2 (06:36→12:57)
[2017-08-05] MEDS: Simethicone Chewable 80 MG TAB PO SCH ×4 (06:36→21:21)
--- NOTE | 2017-08-05 08:49 | PQF ---
CLINICAL DOCUMENTATION IMPROVEMENT CLARIFICATION FORM: ICD-10 Updated PLEASE DO AN ADDENDUM TO THE PROGRESS NOTE WITH ANY DOCUMENTATION UPDATES OR ADDITIONS AND CARRY THROUGH TO DC SUMMARY. THANK YOU. DATE: 08/05 ATTN: DR. Thierry LAMAR Please exercise your independent, professional judgment in responding to the clarification form. Clinical indicators are provided on the bottom of this form for your review. Please check appropriate box(s) to clarify if the following diagnosis has been ruled in or ruled out: PNEUMONIA [ x ] Ruled in diagnosis [ x ] Continue to treat [ ] Resolved [ ] Ruled out diagnosis [ ] Other diagnosis [ ] Unable to determine For continuity of documentation, please document condition throughout progress notes and discharge summary. Thank You. CLINICAL INDICATORS - SIGNS / SYMPTOMS / LABS PHYSICIAN H&P DOCUMENTATION 08/03: HX OF PRESENT ILLNESS: ...3-DAY HISTORY OF FEVER, COUGH PRODUCTIVE OF WHITE & THEN GREENISH SPUTUM, WHEEZING, SOB, & EXTREMITY SWELLING. ASSESSMENT & PLAN: 5) PNEUMONIA. PT PRESENTED W/FEVER, COUGH PRODUCTIVE OF GREENISH SPUTUM & MILD SOB. HE WILL BE STARTED IN IV LEVOFLOXICIN NO FURTHER MENTION OF PNEUMONIA TO DATE RISK FACTORS: COPD ADVANCED AGE (87) [place] RESIDENT TREATMENTS: IV ANTIBIOTIC (LEVAQUIN 08/03 - PRESENT) SUPPLEMENTAL OXYGEN THANK YOU! Dayna (This form is maintained as a part of the permanent medical record) 2014 [employer]. All Rights Reserved Dayna Dale RN, BSN [email or web address] Office: [phone] [facility]
--- NOTE | 2017-08-05 08:50 | PQF ---
CLINICAL DOCUMENTATION IMPROVEMENT CLARIFICATION FORM: ICD-10 Updated PLEASE DO AN ADDENDUM TO THE PROGRESS NOTE WITH ANY DOCUMENTATION UPDATES OR ADDITIONS AND CARRY THROUGH TO DC SUMMARY. THANK YOU. DATE: 08/05 ATTN: DR. Thierry LAMAR Please exercise your independent, professional judgment in responding to the clarification form. Clinical indicators are provided on the bottom of this form for your review. Please check appropriate box(s) to clarify if the following diagnosis has been ruled in or ruled out: NSTEMI TYPE II [x ] Ruled in diagnosis [ ] Continue to treat [ x] Resolved [ ] Ruled out diagnosis [ ] Cannot rule out diagnosis [ ] Other diagnosis [ ] Unable to determine For continuity of documentation, please document condition throughout progress notes and discharge summary. Thank You. CLINICAL INDICATORS - SIGNS / SYMPTOMS / LABS PHYSICIAN H&P DOCUMENTATION 08/03: ASSESSMENT & PLAN: 3) ...HIS TROPONIN IS ELEVATED & THIS IS LIKELY FROM TYPE 2 NSTEMI D/T DEMAND ISCHEMIA. WE WILL TREND TROPONINS CARDIOLOGY CONSULT DOCUMENTATION 08/03: IMPRESSION: 9) ...HIS TROPONIN I WAS 0.158 WITH A BNP OF 1415. ...IT IS POSSIBLE THE PATIENT HAS SUFFERED A NSTEMI, THIS MAY BE DUE TO DEMAND ISCHEMIA TROPONIN: 0.158, 0.158, 0.094 NO FURTHER MENTION OF NSTEMI TO DATE RISK FACTORS: CAD ACUTE ON CHRONIC COMBINED CHF EXACERBATION COPD EXACERBATION ELEVATED TROPONIN I TREATMENTS: CARDIOLOGY CONSULT SERIAL CARDIAC ENZYMES ECHO THANK YOU! Dayna (This form is maintained as a part of the permanent medical record) 2014 [employer]. All Rights Reserved Dayna Dale RN, BSN [email or web address] Office: [phone] [facility]
[2017-08-05] MEDS ORDERED: predniSONE 20 MG TAB PO SCH (09:00)
[2017-08-05] MEDS: Polyethylene Glycol 3350 17 GM Packet PO SCH ×2 (09:32→21:22)
[2017-08-05] MEDS: TICAGRELOR 90 MG TABLET PO SCH ×2 (09:34→21:44)
[2017-08-05] MEDS: Potassium Chloride 20 MEQ TAB PO SCH (09:36)
[2017-08-05] MEDS: Tamsulosin HCl 0.4 MG CAP PO SCH (09:36)
[2017-08-05] MEDS: Gabapentin 300 MG CAP PO SCH ×3 (09:36→21:21)
[2017-08-05] MEDS: Finasteride 5 MG TAB PO SCH (09:36)
[2017-08-05] MEDS: Docusate 100 MG CAP PO SCH ×2 (09:36→21:21)
[2017-08-05] MEDS: Magnesium Oxide 400 MG TAB PO SCH (09:37)
[2017-08-05] MEDS: Multivit, Therapeutic 1 TAB PO SCH (09:37)
[2017-08-05] MEDS: Ferrous Sulfate 325 MG TAB PO SCH (09:37)
[2017-08-05] MEDS ORDERED: methylPREDNISolone Sod Succ/PF 125 MG/2 ML VIAL IVP SCH (12:00)
--- NOTE | 2017-08-05 12:04 | PDOC.PN ---
- Subjective Encounter Start Date: 08/05/17 Encounter Start Time: 12:06 Subjective: Had episode of respiratory distress- improved w nebs and furosemide. -: Doing better now. -: No other acute events overnight - Objective MAR Reviewed: Yes Vital Signs & Weight: Vital Signs (12 hours) Temp Pulse Resp BP Pulse Ox 08/05/17 11:32 88 20 08/05/17 09:44 100 20 08/05/17 09:30 97.7 F 74 24 H 92 L 08/05/17 07:30 97.7 F 74 24 H 119/94 H 92 L 08/05/17 06:26 94 L 08/05/17 06:24 80 20 94 L 08/05/17 04:00 97.6 F 81 20 122/78 91 L 08/05/17 02:10 76 20 Weight Admit Weight 189 lb 14.4 oz Weight 186 lb 1 oz I&O: 08/04/17 08/05/17 08/06/17 06:59 06:59 06:59 Intake Total 750 500 Balance 750 500 Result Diagrams: 08/05/17 05:27 08/05/17 05:27 Phys Exam - Physical Examination Constitutional: NAD HEENT: PERRLA, moist MMs, sclera anicteric Neck: no JVD, supple, full ROM Respiratory: no rales, no rhonchi, wheezing present, clear to auscultation bilateral Cardiovascular: RRR, no significant murmur, no rub Gastrointestinal: soft, non-tender, no distention, positive bowel sounds Musculoskeletal: no edema, pulses present Neurological: non-focal, moves all 4 limbs Psychiatric: normal affect, A&O x 3 Skin: no rash, normal turgor Dx/Plan (1) Chronic combined systolic and diastolic CHF (congestive heart failure) Code(s): I50.42 - CHRONIC COMBINED SYSTOLIC AND DIASTOLIC HRT FAIL Status: Acute Comment: Improving with diuresis. Monitor I/O, weights and potassium. EF on 08/03 w EF 20-25%. Cardiology on board, recs appreciated. (2) COPD exacerbation Code(s): J44.1 - CHRONIC OBSTRUCTIVE PULMONARY DISEASE W (ACUTE) EXACERBATION Status: Acute Comment: Continue nebs, antibiotics and O2 as needed. Switched to parenteral steroids. (3) Cellulitis Code(s): L03.90 - CELLULITIS, UNSPECIFIED Status: Acute Qualifiers: Site of cellulitis: extremity Site of cellulitis of extremity: lower extremity Laterality: left Qualified Code(s): L03.116 - Cellulitis of left lower limb Comment: Improving with antibiotics. US ruled out DVT (4) CAD (coronary artery disease) Code(s): I25.10 - ATHSCL HEART DISEASE OF [place] CORONARY ARTERY W/O ANG PCTRS Status: Chronic Qualifiers: Coronary Disease-Associated Artery/Lesion type: bypass graft [place] vs. transplanted heart: [place] heart Associated angina: without angina Qualified Code(s): I25.810 - Atherosclerosis of coronary artery bypass graft(s) without angina pectoris Comment: Chest pain free. Stable. Will continue home medications. (5) CKD (chronic kidney disease) stage 3, GFR 30-59 ml/min Code(s): N18.3 - CHRONIC KIDNEY DISEASE, STAGE 3 (MODERATE) Status: Chronic Comment: At baseline (6) Dyslipidemia Code(s): E78.5 - HYPERLIPIDEMIA, UNSPECIFIED Status: Chronic Comment: Continue Statins (7) Physical deconditioning Code(s): R53.81 - OTHER MALAISE Status: Chronic Comment: Walking program. (8) Thrombocytopenia Code(s): D69.6 - THROMBOCYTOPENIA, UNSPECIFIED Status: Acute Comment: Improving. No signs of acute bleeding. hold heparin based products (9) Chronic respiratory failure with hypoxia Code(s): J96.11 - CHRONIC RESPIRATORY FAILURE WITH HYPOXIA Status: Chronic Comment: On Home O2. Likely 2/2 combination of CHF and COPD. (10) Dementia Code(s): F03.90 - UNSPECIFIED DEMENTIA WITHOUT BEHAVIORAL DISTURBANCE Status: Acute Qualifiers: Dementia type: unspecified type Dementia behavioral disturbance: without behavioral disturbance Qualified Code(s): F03.90 - Unspecified dementia without behavioral disturbance Comment: Seems to be at baseline. Delirium precautions. (11) PNA (pneumonia) Code(s): J18.9 - PNEUMONIA, UNSPECIFIED ORGANISM Status: Acute Qualifiers: Pneumonia type: due to unspecified organism Laterality: unspecified laterality Lung location: unspecified part of lung Qualified Code(s): J18.9 - Pneumonia, unspecified organism Comment: Being treated w levofloxacin. (12) PVD (peripheral vascular disease) Code(s): I73.9 - PERIPHERAL VASCULAR DISEASE, UNSPECIFIED Status: Acute - Plan cont current plan of care, respiratory therapy * . Review of Systems - Medications/Allergies Allergies/Adverse Reactions: Allergies Allergy/AdvReac Type Severity Reaction Status Date / Time ezetimibe [From Vytorin] AdvReac Verified 11/23/16 13:14 simvastatin [From Vytorin] AdvReac Verified 11/23/16 13:14 Medications: Current Medications Acetaminophen (Tylenol) 650 mg PO Q4H PRN PRN Reason: Headache/Fever or Pain Acetaminophen/Codeine Phosphate (Tylenol #3) 1 tab PO Q6H PRN PRN Reason: Pain Last Admin: 08/05/17 04:51 Dose: 1 tab Albuterol Sulfate (Ventolin) 2.5 mg NEB [id number] PRN PRN Reason: Wheezing Last Admin: 08/04/17 05:06 Dose: 2.5 mg Albuterol/Ipratropium (Duoneb) 3 ml NEB [id number] PRN PRN Reason: SOB &/or Wheezing Last Admin: 08/05/17 11:32 Dose: 3 ml Aspirin (Aspirin Chewable) 81 mg PO DAILY [facility] Last Admin: 08/05/17 09:37 Dose: 81 mg Docusate Sodium (Colace) 100 mg PO BID [facility] Last Admin: 08/05/17 09:36 Dose: 100 mg Famotidine (Pepcid) 20 mg PO QPM [facility] Last Admin: 08/04/17 20:56 Dose: 20 mg Ferrous Sulfate (Feosol) 325 mg PO DAILY [facility] Last Admin: 08/05/17 09:37 Dose: 325 mg Finasteride (Proscar) 5 mg PO DAILY [facility] Last Admin: 08/05/17 09:36 Dose: 5 mg Furosemide (Lasix) 40 mg SLOW IVP 0600,1400 [facility] Last Admin: 08/05/17 06:36 Dose: 40 mg Gabapentin (Neurontin) 600 mg PO TID [facility] Last Admin: 08/05/17 09:36 Dose: 600 mg Guaifenesin/Dextromethorphan (Robitussin Dm) 15 ml PO Q4H PRN PRN Reason: Cough Last Admin: 08/05/17 05:00 Dose: 15 ml Levofloxacin 500 mg/ Device 100 mls @ 100 mls/hr IVPB 1000 [facility] Last Admin: 08/05/17 09:32 Dose: 100 mls Isosorbide Mononitrate (Imdur Er) 30 mg PO DAILY [facility] Last Admin: 08/05/17 09:42 Dose: 30 mg Levothyroxine Sodium (Synthroid) 75 mcg PO 0600 [facility] Last Admin: 08/05/17 06:36 Dose: 75 mcg Magnesium Hydroxide (Milk Of Magnesium) 30 ml PO DAILYPRN PRN PRN Reason: Constipation Magnesium Oxide (Magnesium Oxide) 400 mg PO DAILY [facility] Last Admin: 08/05/17 09:37 Dose: 400 mg Methylprednisolone Sodium Succinate (Solu-Medrol) 40 mg IVP Q6HR [facility] Multivitamins (Theragran) 1 tab PO DAILY [facility] Last Admin: 08/05/17 09:37 Dose: 1 tab Polyethylene Glycol (Miralax) 17 gm PO BID [facility] Last Admin: 08/05/17 09:32 Dose: 17 gm Potassium Chloride (K-Dur) 20 meq PO QAM-WM [facility] Last Admin: 08/05/17 09:36 Dose: 20 meq Simethicone (Mylicon Chewable) 80 mg PO ACHS [facility] Last Admin: 08/05/17 06:36 Dose: 80 mg Sodium Chloride (Flush - Normal Saline) 10 ml IVF Q12HR [facility] Last Admin: 08/05/17 09:38 Dose: 10 ml Sodium Chloride (Flush - Normal Saline) 10 ml IVF PRN PRN PRN Reason: Saline Flush Last Admin: 08/05/17 06:37 Dose: 10 ml Tamsulosin HCl (Flomax) 0.4 mg PO DAILY [facility] Last Admin: 08/05/17 09:36 Dose: 0.4 mg Ticagrelor (Brilinta) 60 mg PO BID [facility] Last Admin: 08/05/17 09:34 Dose: 60 mg
--- NOTE | 2017-08-05 15:45 | PDOC.CTH ---
Cardiology Progress Note - Subjective He [id number] to be short winded. he has started to diureses better but has not had significant improvement of his breathing status. I reviewed records from [facility] - Objective Vital Signs Temp Pulse Resp BP Pulse Ox 08/05/17 15:28 88 24 H 08/05/17 15:00 97.9 F 93 22 H 152/70 H 89 L 08/05/17 13:19 80 28 H 08/05/17 11:32 88 20 08/05/17 09:44 100 20 08/05/17 09:30 97.7 F 74 24 H 92 L 08/05/17 07:30 97.7 F 74 24 H 119/94 H 92 L 08/05/17 06:26 94 L 08/05/17 06:24 80 20 94 L 08/05/17 04:00 97.6 F 81 20 122/78 91 L Admit Weight 189 lb 14.4 oz Weight 186 lb 1 oz 08/04/17 08/05/17 08/06/17 06:59 06:59 06:59 Intake Total 750 500 Balance 750 500 - Physical Examination General/Neuro: alert & oriented x3, other: (mod res distress, talking in short sentences. ) Neck: no JVD present Lungs: other: (decreased breath sounds bilat. ) Heart: RRR Abdomen: other: (distended. ) Extremities: + edema B (1+) - Telemetry Telemetry Rhythm: NSR - Labs Result Diagrams: 08/05/17 05:27 08/05/17 05:27 Troponin/CKMB CK-MB (CK-2) 1.6 ng/mL (0-6.6) 08/03/17 08:33 Troponin I 0.094 ng/mL (< 0.028) H 08/03/17 20:20 - Assessment/Plan 1. Acute on chronic systolic heart failure 2. 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 3. CAD, s/p CABG in the past 4. Worsening CM, EF reduced as compared to 2 yrs ago. now at 20-25% 5. COPD exacerbation. PLAN: - Continue IV diuresis. - I reviewed records from [facility] He had an admission earlier this month and discharged on July 14. He was treated for acute CH exacerbation and COPD exacerbation. He had an echo done at that time and his EF was at 30-35% which was a drop from an echo there in March of last year at 40-45%. He did well and was scheduled to follow up with Dr. Sanabria as an outpatient for evaluation of decreased LV function but never made it back. - From physical exam some of his symptoms may be related to COPD as well as CHF. Will add steroids. - he is currently not interested in [facility], he just wants to start breathing better.
--- NOTE | 2017-08-05 17:07 | CON ---
DATE OF CONSULTATION: 08/05/2017 CONSULTING PHYSICIAN: Dr. Medina from [facility]. REASON FOR CONSULTATION: COPD exacerbation. HISTORY OF PRESENT ILLNESS: The patient is a pleasant 87-year-old male who is a resident of a jail in [place]. He was admitted to the hospital on with increasing shortness of breath. The patient is able to provide history to me orally. Additionally, I have reviewed extensive medical records in the chart. He has an established relationship with my partner, Dr. Alan. He has had several episodes of COPD, necessitating hospitalization. He has also been hospitalized at [facility] recently with congestive heart failure. He says he is having difficulty swallowing liquids and that is keeping him from eating properly. He says he is short of breath with minimal exertion. He is wearing oxygen at night, but does not use it during the day. He is taking breathing treatments about 4 times daily. PAST MEDICAL HISTORY: 1. Moderate chronic obstructive pulmonary disease with an FEV1 of 1.42 liters which is 65% predicted -- this is from a PFT obtained in 05/2016. 2. Congestive heart failure -- most recent echo shows EF of 20%-25%, which is decreased compared to the recent one at [facility], which showed EF of around 45%. 3. Coronary artery disease. 4. Hypertension. 5. Hyperlipidemia. 6. Chronic atrial fibrillation. 7. Peripheral vascular disease. 8. Benign prostatic hypertrophy. 9. Seizure disorder. PAST SURGICAL HISTORY: 1. Coronary artery bypass grafting surgery in 2002. 2. Hernia repair. 3. Cardiac stenting. FAMILY MEDICAL HISTORY: Unremarkable. SOCIAL HISTORY: He lives in a jail in [place]. He has no history of alcohol, tobacco or illicit drug use. Denies any exposure to chemicals. ALLERGIES: VYTORIN and SIMVASTATIN. MEDICATIONS PRIOR TO ADMISSION: Gabapentin 600 mg t.i.d., Mannose 4 capsules daily, Tylenol No.3 one tablet every 6 hours as needed for pain, Proventil HFA metered dose inhaler 2 puffs every 4 hours as needed, vitamin C 500 mg daily, aspirin 81 mg daily, Proscar 5 mg daily, iron sulfate 325 mg daily, Lasix 40 mg daily, Imdur ER 30 mg daily, DuoNeb every 4-6 hours as needed, levothyroxine 75 mcg daily, multivitamin 1 daily, magnesium oxide 400 mg daily, simethicone 80 mg before each meal, MiraLax 17 grams twice daily, Brilinta 60 mg twice daily, tamsulosin 0.4 mg daily, guaifenesin 600 mg every 12 hours, prednisone 5 mg daily. CURRENT INPATIENT MEDICATIONS: Tylenol No. 3, Ventolin, DuoNeb, aspirin, Colace , Pepcid, iron sulfate, Proscar, Lasix, Neurontin, Imdur, Robitussin, levofloxacin, Synthroid, Solu-Medrol, multivitamin, MiraLax, potassium, Flomax, Brilinta. REVIEW OF SYSTEMS: Remarkable for odynophagia and dysphagia for liquids. He has productive sputum. He has shortness of breath and wheezing at baseline. He has difficulty ambulating. He has difficulty with urination. Remainder of 12 point review of systems negative. PHYSICAL EXAMINATION: VITAL SIGNS: Temperature 97.7, pulse 80, respirations 28, O2 sat 92% on 2 liters, blood pressure 119/94. GENERAL: He is an elderly male who appears chronically ill. HEENT: Remarkable for seborrheic keratoses on the face. NECK: Without adenopathy, JVD, or bruits. LUNGS: Diffuse expiratory wheezing bilaterally with crackles in both bases. CARDIAC: S1, S2 irregularly irregular without murmur. ABDOMEN: Soft, obese, nontender, nondistended. EXTREMITIES: He has redness in the left pretibial region. He has no other edema noted in the legs. LABORATORY DATA: White blood cell count 9.1, hematocrit 30.9, platelet count 139. Sodium 139, potassium 3.8, chloride 100, CO2 of 31, BUN 36, creatinine 1.6 , glucose 157. TSH 0.46. Troponin 0.094. LABORATORY AND X-RAY FINDINGS: Chest x-ray was reviewed and actually shows fairly clear lung berrios. He has cardiomegaly, obvious sternal wires. ASSESSMENT: 1. Chronic obstructive pulmonary disease exacerbation. 2. Bronchitis. 3. Congestive heart failure with chronically low ejection fraction, which may or may not currently be exacerbated. RECOMMENDATIONS: Try to discuss end of life issues with the patient. He essentially has end-stage lung and end-stage cardiac disease and is at high risk for decompensation and ending up in the Critical Care Unit. I think he is being treated as aggressively as practical with medications. I agree with steroids, nebulization treatments, antibiotics, and diuresis. The patient would be a good candidate for noninvasive ventilation if needed, but I would be hesitant to extend this to endotracheal intubation, etc. The patient was very noncommittal in regards to end of life issues. I think palliative care consultation could be helpful in helping him work through these issues. I will be happy to follow with the patient with you in the weekend. Dr. Alan will return on Tuesday to assume care. 70 min. time spent on this consultation. Of that time, greater than 50% of the time was spent with the patient and/or on the patient's floor. ROGELIO
[2017-08-05] MEDS: Famotidine 20 MG TAB PO SCH (21:21)
--- NOTE | 2017-08-06 01:52 | PDOC.EVN ---
Event Note - Event Note Event Note: RN called - Pt had NSVT and SVT. Will check electrolytes. 2 gm Mg ordered.
[2017-08-06] MEDS ORDERED: Magnesium 2 GM/NS 0.9% 100 ML 2 GM in Premix Bag 1 BAG IVPB SCH (02:00)
[2017-08-06] MEDS ORDERED: Potassium Chloride 20 MEQ TAB PO SCH (02:00)
[2017-08-06 02:11] LABS: Hemoglobin 10.8 g/dL (14.0-18.0); Platelet Count 143 thou/uL (130-400)
[2017-08-06 02:30] LABS: Albumin 3.7 g/dL (3.4-4.8); Anion Gap 12 mmol/L (10-20); BUN (Urea Nitrogen) 42 mg/dL (8.4-25.7); BUN/Creatinine Ratio 24.28; Calc. Creatinine Clearance 35 mL/min (70-130); Calcium 8.6 mg/dL (7.8-10.44); Carbon Dioxide 32 mmol/L (23-31); Chloride 96 mmol/L (98-107); Estimated GFR-MDRD 37; Glucose 279 mg/dL (83-110); Magnesium 2.5 mg/dL (1.6-2.6); Phosphorus 3.6 mg/dL (2.3-4.7); Potassium 4.1 mmol/L (3.5-5.1); Sodium 136 mmol/L (136-145)
[2017-08-06] MEDS: Levothyroxine Sodium 75 MCG TAB PO SCH (05:37)
[2017-08-06] MEDS: Furosemide 20 MG/2 ML VIAL SLOW IVP SCH ×2 (05:37→14:56)
[2017-08-06] MEDS: Finasteride 5 MG TAB PO SCH (09:31)
[2017-08-06] MEDS: Magnesium Oxide 400 MG TAB PO SCH (09:31)
[2017-08-06] MEDS: Potassium Chloride 20 MEQ TAB PO SCH (09:32)
[2017-08-06] MEDS: TICAGRELOR 90 MG TABLET PO SCH ×2 (09:32→21:05)
[2017-08-06] MEDS: Ferrous Sulfate 325 MG TAB PO SCH (09:33)
[2017-08-06] MEDS: Simethicone Chewable 80 MG TAB PO SCH ×4 (09:33→21:04)
[2017-08-06] MEDS: Gabapentin 300 MG CAP PO SCH ×3 (09:33→21:04)
[2017-08-06] MEDS: Guaifenesin DM 100-10/5 ML UDCUP PO PRN (09:34)
[2017-08-06] MEDS: Tamsulosin HCl 0.4 MG CAP PO SCH (09:34)
[2017-08-06] MEDS: Multivit, Therapeutic 1 TAB PO SCH (09:34)
[2017-08-06] MEDS: Docusate 100 MG CAP PO SCH ×2 (09:34→21:04)
[2017-08-06] MEDS: Polyethylene Glycol 3350 17 GM Packet PO SCH ×2 (09:35→21:04)
[2017-08-06] MEDS ORDERED: Morphine 2 MG/ML SYRINGE SLOW IVP SCH (11:30)
--- NOTE | 2017-08-06 13:08 | PDOC.PN ---
- Subjective Encounter Start Date: 08/06/17 Encounter Start Time: 13:11 Subjective: No new complaints. Said had trouble breathing earlier but fine now -: No acute events overnight. - Objective MAR Reviewed: Yes Vital Signs & Weight: Vital Signs (12 hours) Temp Pulse Resp BP Pulse Ox 08/06/17 12:03 88 24 H 08/06/17 11:40 97.7 F 118 H 30 H 120/59 L 95 08/06/17 10:17 116 H 28 H 08/06/17 07:20 97.8 F 88 26 H 96 08/06/17 07:15 97.8 F 88 26 H 147/78 H 96 08/06/17 06:59 98 08/06/17 06:57 75 28 H 98 08/06/17 04:00 97.7 F 84 18 151/66 H 100 08/06/17 03:19 83 20 96 08/06/17 01:20 97 Weight Admit Weight 189 lb 14.4 oz Weight 181 lb 14.4 oz I&O: 08/05/17 08/06/17 08/07/17 06:59 06:59 06:59 Intake Total 500 100 Balance 500 100 Result Diagrams: 08/06/17 02:02 08/06/17 02:02 Phys Exam - Physical Examination Constitutional: NAD HEENT: PERRLA, moist MMs, sclera anicteric Neck: supple, full ROM Respiratory: no rales, no rhonchi vesicular but reduced breath sounds b/l Cardiovascular: RRR, no significant murmur, no rub Gastrointestinal: soft, non-tender, no distention, positive bowel sounds Musculoskeletal: no edema, pulses present Neurological: non-focal, moves all 4 limbs Psychiatric: normal affect, A&O x 3 Skin: no rash, normal turgor Dx/Plan (1) Chronic combined systolic and diastolic CHF (congestive heart failure) Code(s): I50.42 - CHRONIC COMBINED SYSTOLIC AND DIASTOLIC HRT FAIL Status: Acute Comment: Improving with diuresis. EF on 08/03 w EF 20-25%. Cardiology on board, recs appreciated. Monitor I/O, weights and potassium. (2) COPD exacerbation Code(s): J44.1 - CHRONIC OBSTRUCTIVE PULMONARY DISEASE W (ACUTE) EXACERBATION Status: Acute Comment: Oxegenation has been constantly >94% but still complains of occasional SOB and respiratory distress. Pulmonary had an extensive conversation with donald about end stage COPD. Continue nebs, antibiotics and O2 as needed. Switched to parenteral steroids. (3) Cellulitis Code(s): L03.90 - CELLULITIS, UNSPECIFIED Status: Resolved Qualifiers: Site of cellulitis: extremity Site of cellulitis of extremity: lower extremity Laterality: left Qualified Code(s): L03.116 - Cellulitis of left lower limb Comment: Resolved. US ruled out DVT. (4) CAD (coronary artery disease) Code(s): I25.10 - ATHSCL HEART DISEASE OF [place] CORONARY ARTERY W/O ANG PCTRS Status: Chronic Qualifiers: Coronary Disease-Associated Artery/Lesion type: bypass graft [place] vs. transplanted heart: [place] heart Associated angina: without angina Qualified Code(s): I25.810 - Atherosclerosis of coronary artery bypass graft(s) without angina pectoris Comment: Chest pain free. Stable. Will continue home medications. (5) CKD (chronic kidney disease) stage 3, GFR 30-59 ml/min Code(s): N18.3 - CHRONIC KIDNEY DISEASE, STAGE 3 (MODERATE) Status: Chronic Comment: Around his baseline (6) Dyslipidemia Code(s): E78.5 - HYPERLIPIDEMIA, UNSPECIFIED Status: Chronic Comment: Continue Statins (7) Physical deconditioning Code(s): R53.81 - OTHER MALAISE Status: Chronic Comment: Walking program. (8) Thrombocytopenia Code(s): D69.6 - THROMBOCYTOPENIA, UNSPECIFIED Status: Acute Comment: No signs of acute bleeding. Hold heparin based products and place on SCDs while in bed. (9) Chronic respiratory failure with hypoxia Code(s): J96.11 - CHRONIC RESPIRATORY FAILURE WITH HYPOXIA Status: Chronic Comment: On Home O2. Likely 2/2 combination of CHF and COPD. (10) Dementia Code(s): F03.90 - UNSPECIFIED DEMENTIA WITHOUT BEHAVIORAL DISTURBANCE Status: Acute Qualifiers: Dementia type: unspecified type Dementia behavioral disturbance: without behavioral disturbance Qualified Code(s): F03.90 - Unspecified dementia without behavioral disturbance Comment: Seems to be at baseline. Delirium precautions. (11) PNA (pneumonia) Code(s): J18.9 - PNEUMONIA, UNSPECIFIED ORGANISM Status: Acute Qualifiers: Pneumonia type: due to unspecified organism Laterality: unspecified laterality Lung location: unspecified part of lung Qualified Code(s): J18.9 - Pneumonia, unspecified organism Comment: Being treated w levofloxacin. (12) PVD (peripheral vascular disease) Code(s): I73.9 - PERIPHERAL VASCULAR DISEASE, UNSPECIFIED Status: Acute - Plan cont current plan of care, continue antibiotics, PT/OT, social media marketing specialist, incentive spirometry, DVT proph w/SCDs * . Review of Systems - Medications/Allergies Allergies/Adverse Reactions: Allergies Allergy/AdvReac Type Severity Reaction Status Date / Time ezetimibe [From Vytorin] AdvReac Verified 11/23/16 13:14 simvastatin [From Vytorin] AdvReac Verified 11/23/16 13:14 Medications: Current Medications Acetaminophen (Tylenol) 650 mg PO Q4H PRN PRN Reason: Headache/Fever or Pain Acetaminophen/Codeine Phosphate (Tylenol #3) 1 tab PO Q6H PRN PRN Reason: Pain Last Admin: 08/05/17 04:51 Dose: 1 tab Albuterol Sulfate (Ventolin) 2.5 mg NEB [id number] PRN PRN Reason: Wheezing Last Admin: 08/04/17 05:06 Dose: 2.5 mg Albuterol/Ipratropium (Duoneb) 3 ml NEB [id number] PRN PRN Reason: SOB &/or Wheezing Last Admin: 08/06/17 12:03 Dose: 3 ml Aspirin (Aspirin Chewable) 81 mg PO DAILY [facility] Last Admin: 08/06/17 09:33 Dose: 81 mg Docusate Sodium (Colace) 100 mg PO BID [facility] Last Admin: 08/06/17 09:34 Dose: 100 mg Famotidine (Pepcid) 20 mg PO QPM [facility] Last Admin: 08/05/17 21:21 Dose: 20 mg Ferrous Sulfate (Feosol) 325 mg PO DAILY [facility] Last Admin: 08/06/17 09:33 Dose: 325 mg Finasteride (Proscar) 5 mg PO DAILY [facility] Last Admin: 08/06/17 09:31 Dose: 5 mg Furosemide (Lasix) 40 mg SLOW IVP 0600,1400 [facility] Last Admin: 08/06/17 05:37 Dose: 40 mg Gabapentin (Neurontin) 600 mg PO TID [facility] Last Admin: 08/06/17 09:33 Dose: 600 mg Guaifenesin/Dextromethorphan (Robitussin Dm) 15 ml PO Q4H PRN PRN Reason: Cough Last Admin: 08/06/17 09:34 Dose: 15 ml Levofloxacin 500 mg/ Device 100 mls @ 100 mls/hr IVPB 1000 [facility] Last Admin: 08/06/17 09:47 Dose: 100 mls Isosorbide Mononitrate (Imdur Er) 30 mg PO DAILY [facility] Last Admin: 08/06/17 09:31 Dose: 30 mg Levothyroxine Sodium (Synthroid) 75 mcg PO 0600 [facility] Last Admin: 08/06/17 05:37 Dose: 75 mcg Magnesium Hydroxide (Milk Of Magnesium) 30 ml PO DAILYPRN PRN PRN Reason: Constipation Magnesium Oxide (Magnesium Oxide) 400 mg PO DAILY [facility] Last Admin: 08/06/17 09:31 Dose: 400 mg Methylprednisolone Sodium Succinate (Solu-Medrol) 40 mg IVP Q6HR [facility] Last Admin: 08/06/17 11:04 Dose: 40 mg Multivitamins (Theragran) 1 tab PO DAILY [facility] Last Admin: 08/06/17 09:34 Dose: 1 tab Polyethylene Glycol (Miralax) 17 gm PO BID [facility] Last Admin: 08/06/17 09:35 Dose: 17 gm Potassium Chloride (K-Dur) 20 meq PO QAM-WM [facility] Last Admin: 08/06/17 09:32 Dose: 20 meq Simethicone (Mylicon Chewable) 80 mg PO ACHS [facility] Last Admin: 08/06/17 11:04 Dose: 80 mg Sodium Chloride (Flush - Normal Saline) 10 ml IVF Q12HR [facility] Last Admin: 08/06/17 09:50 Dose: 10 ml Sodium Chloride (Flush - Normal Saline) 10 ml IVF PRN PRN PRN Reason: Saline Flush Last Admin: 08/05/17 06:37 Dose: 10 ml Tamsulosin HCl (Flomax) 0.4 mg PO DAILY [facility] Last Admin: 08/06/17 09:34 Dose: 0.4 mg Ticagrelor (Brilinta) 60 mg PO BID [facility] Last Admin: 08/06/17 09:32 Dose: 60 mg
--- NOTE | 2017-08-06 14:27 | PRG ---
DATE OF SERVICE: 08/06/2017 SUBJECTIVE: The patient continues to be markedly short of breath despite aggressive medical therapy. PHYSICAL EXAMINATION: VITAL SIGNS: Temperature is 97.7, pulse 88, respirations 24, O2 sat 95% on 3 liters, and blood press ure 120/59. HEENT: Unremarkable. NECK: No adenopathy or JVD. LUNGS: He has rales bilaterally, but overall sounds better than yesterday. CARDIAC: S1 and S2, regular. ABDOMEN: Soft. EXTREMITIES: Trace edema. LABORATORY DATA: Sodium 136, potassium 4.1, chloride 96, CO2 of 32, BUN 42, creatinine 1.7, and gluc ose 279. ASSESSMENT: 1. Acute hypoxic respiratory failure. 2. Chronic obstructive pulmonary disease with exacerbation. 3. Congestive heart failure with low EF. PLAN: I told the patient that this is just going to take time. His age combined with his comorbidit ies, make his short term prognosis very poor. I did try to speak to him yesterday in regards to adva nced directives status, but he was noncommittal. I have reviewed his medication list and agree with continuing the antibiotics, nebulization treatments, and steroids. I will follow with you.
[2017-08-06] MEDS: Lorazepam 2 MG/ML VIAL SLOW IVP PRN ×2 (14:56→21:05)
--- NOTE | 2017-08-06 19:29 | PDOC.CTH ---
Cardiology Progress Note - Subjective He continues to feel SOB. Minimal improvement. - Objective Vital Signs Temp Pulse Resp BP Pulse Ox 08/06/17 19:04 94 L 08/06/17 19:02 102 H 26 H 94 L 08/06/17 16:10 98.6 F 91 18 151/72 H 96 08/06/17 16:05 92 24 H 08/06/17 14:25 100 24 H 08/06/17 12:03 88 24 H 08/06/17 11:40 97.7 F 118 H 30 H 120/59 L 95 08/06/17 10:17 116 H 28 H Admit Weight 189 lb 14.4 oz Weight 181 lb 14.4 oz 08/05/17 08/06/17 08/07/17 06:59 06:59 06:59 Intake Total 500 100 Balance 500 100 - Physical Examination General/Neuro: alert & oriented x3 Neck: no JVD present Lungs: other: (reduced breath sounds bilat. ) Heart: RRR Abdomen: NT/ND Extremities: + edema B (1+) - Telemetry Telemetry Rhythm: NSR - Labs Result Diagrams: 08/06/17 02:02 08/06/17 02:02 Troponin/CKMB CK-MB (CK-2) 1.6 ng/mL (0-6.6) 08/03/17 08:33 Troponin I 0.094 ng/mL (< 0.028) H 08/03/17 20:20 - Assessment/Plan 1. Acute on chronic systolic heart failure 2. 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 3. CAD, s/p CABG in the past 4. Worsening CM, EF reduced as compared to 2 yrs ago. now at 20-25% 5. COPD exacerbation. 6. NSVT PLAN: - Continue IV lasix. - Continue aggressive COPD therapies. - Poor prognosis [facility]. - Cannot do LHC at this time as he is still unable to lay flat. - If creatinine continues to increase we may try inotropes but with his level of aortic stenosis this may not help much. - He is severely ill and would not be unexpected. - Agree with Palliative care consult. - Will follow.
[2017-08-06] MEDS: Famotidine 20 MG TAB PO SCH (21:04)
[2017-08-07 04:26] VITALS: BP 149/70
[2017-08-07] MEDS: Levothyroxine Sodium 75 MCG TAB PO SCH (05:23)
[2017-08-07] MEDS: Furosemide 20 MG/2 ML VIAL SLOW IVP SCH ×2 (05:23→15:35)
[2017-08-07 06:50] LABS: pH, Arterial 7.34 (7.35-7.45)
[2017-08-07 06:51] LABS: Actual Bicarbonate (HCO3a) 34.3 mEq/L (22-26); Base Excess (BEa) 6.5 mEq/L (0 (+/-) 2.5); CO2 Tension 64.7 mmHg (35.0-45.0); Hematocrit-ABG 43.2 % (42.0-52.0); Hemoglobin (Hb) 13.1 g/dL (14.0-18.0); O2 Tension (PaO2) 200.3 mmHg (80.0-100.0)
[2017-08-07 06:52] LABS: Puncture Site RRA
[2017-08-07 08:06] LABS: Albumin 4.3 g/dL (3.4-4.8); Anion Gap 14 mmol/L (10-20); BUN (Urea Nitrogen) 55 mg/dL (8.4-25.7); BUN/Creatinine Ratio 29.41; Calc. Creatinine Clearance 31 mL/min (70-130); Carbon Dioxide 35 mmol/L (23-31); Chloride 96 mmol/L (98-107); Estimated GFR-MDRD 34; Glucose 252 mg/dL (83-110); Magnesium 3.2 mg/dL (1.6-2.6); Phosphorus 4.7 mg/dL (2.3-4.7); Potassium 5.2 mmol/L (3.5-5.1); Sodium 140 mmol/L (136-145)
[2017-08-07] MEDS: Potassium Chloride 20 MEQ TAB PO SCH (09:02)
[2017-08-07] MEDS: Docusate 100 MG CAP PO SCH (09:02)
[2017-08-07] MEDS: Simethicone Chewable 80 MG TAB PO SCH ×2 (09:02→12:24)
[2017-08-07] MEDS: Ferrous Sulfate 325 MG TAB PO SCH (09:02)
[2017-08-07] MEDS: Magnesium Oxide 400 MG TAB PO SCH (09:03)
[2017-08-07] MEDS: Polyethylene Glycol 3350 17 GM Packet PO SCH (09:03)
[2017-08-07] MEDS: Finasteride 5 MG TAB PO SCH (09:03)
[2017-08-07] MEDS: Multivit, Therapeutic 1 TAB PO SCH (09:03)
[2017-08-07] MEDS: Tamsulosin HCl 0.4 MG CAP PO SCH (09:03)
[2017-08-07] MEDS: Gabapentin 300 MG CAP PO SCH ×2 (09:03→15:36)
[2017-08-07] MEDS: TICAGRELOR 90 MG TABLET PO SCH (09:04)
--- NOTE | 2017-08-07 09:45 | RAD ---
PORTABLE CHEST: Date: 08/07/17 PROVIDED CLINICAL HISTORY: Shortness of breath. FINDINGS: Comparison with 08/03/17. Cardiac silhouette remains enlarged. Median sternotomy changes are noted. Chronic obstructive changes are redemonstrated. No focal consolidation, pleural fluid, or pneumothorax apparent. IMPRESSION: No evidence for an acute cardiopulmonary process. POS: [facility]
--- NOTE | 2017-08-07 11:09 | PDOC.PN ---
- Subjective Encounter Start Date: 08/07/17 Encounter Start Time: 11:08 Subjective: Transferred to ICU overnight for respiratory distress -: Very lethargic, oriented to person this am - Objective Resuscitation Status: Resuscitation Status DNI:No Intubation MAR Reviewed: Yes Vital Signs & Weight: Vital Signs (12 hours) Temp Pulse Resp BP Pulse Ox 08/07/17 09:00 98.8 F 08/07/17 06:15 123 H 26 H 100 08/07/17 06:02 98.8 F 08/07/17 05:00 93 L 08/07/17 04:00 97.6 F 101 H 24 H 149/70 H 99 08/07/17 02:15 26 H 93 L 08/07/17 00:15 96 08/07/17 00:00 98.1 F 95 20 158/70 H 96 Weight Admit Weight 189 lb 14.4 oz Weight 182 lb 8 oz Most Recent Monitor Data Heart Rate from ECG 129 NIBP 144/80 NIBP BP-Mean 98 Respiration from ECG 43 SpO2 89 I&O: 08/06/17 08/07/17 08/08/17 06:59 06:59 06:59 Intake Total 100 480 100 Output Total 0 Balance 100 480 100 Result Diagrams: 08/06/17 02:02 08/07/17 07:14 Dx/Plan (1) Acute respiratory failure with hypoxia Code(s): J96.01 - ACUTE RESPIRATORY FAILURE WITH HYPOXIA Status: Acute Comment: Has acute on chronic resp failure. Now requiring Bipap. Prognosis very poor. Extensive conversation had w patient by specialistes and is now DNI. Receiving nebs, steroids. Appreciate recs from cardiology and pulmonary. (2) Chronic combined systolic and diastolic CHF (congestive heart failure) Code(s): I50.42 - CHRONIC COMBINED SYSTOLIC AND DIASTOLIC HRT FAIL Status: Acute Comment: EF on 08/03 w EF 20-25%. Patient refised AICD or life vest. Cardiology on board, recs appreciated. Monitor I/O, weights and potassium. (3) COPD exacerbation Code(s): J44.1 - CHRONIC OBSTRUCTIVE PULMONARY DISEASE W (ACUTE) EXACERBATION Status: Acute Comment: Still SOB. Continue Bipap, nebs, antibiotics and parenteral steroids. (4) CAD (coronary artery disease) Code(s): I25.10 - ATHSCL HEART DISEASE OF [place] CORONARY ARTERY W/O ANG PCTRS Status: Chronic Qualifiers: Coronary Disease-Associated Artery/Lesion type: bypass graft [place] vs. transplanted heart: [place] heart Associated angina: without angina Qualified Code(s): I25.810 - Atherosclerosis of coronary artery bypass graft(s) without angina pectoris Comment: Chest pain free. Continue home medications. (5) CKD (chronic kidney disease) stage 3, GFR 30-59 ml/min Code(s): N18.3 - CHRONIC KIDNEY DISEASE, STAGE 3 (MODERATE) Status: Chronic Comment: Creatinine trending up. (6) Dyslipidemia Code(s): E78.5 - HYPERLIPIDEMIA, UNSPECIFIED Status: Chronic Comment: Continue Statins (7) Thrombocytopenia Code(s): D69.6 - THROMBOCYTOPENIA, UNSPECIFIED Status: Acute Comment: No signs of acute bleeding. Hold heparin based products and place on SCDs while in bed. (8) Dementia Code(s): F03.90 - UNSPECIFIED DEMENTIA WITHOUT BEHAVIORAL DISTURBANCE Status: Acute Qualifiers: Dementia type: unspecified type Dementia behavioral disturbance: without behavioral disturbance Qualified Code(s): F03.90 - Unspecified dementia without behavioral disturbance Comment: Delirium precautions. (9) PNA (pneumonia) Code(s): J18.9 - PNEUMONIA, UNSPECIFIED ORGANISM Status: Acute Qualifiers: Pneumonia type: due to unspecified organism Laterality: unspecified laterality Lung location: unspecified part of lung Qualified Code(s): J18.9 - Pneumonia, unspecified organism Comment: Being treated w levofloxacin. (10) PVD (peripheral vascular disease) Code(s): I73.9 - PERIPHERAL VASCULAR DISEASE, UNSPECIFIED Status: Acute - Plan cont current plan of care, continue antibiotics, respiratory therapy, DVT proph w/lovenox * . Review of Systems - Medications/Allergies Allergies/Adverse Reactions: Allergies Allergy/AdvReac Type Severity Reaction Status Date / Time ezetimibe [From Vytorin] AdvReac Verified 11/23/16 13:14 simvastatin [From Vytorin] AdvReac Verified 11/23/16 13:14 Medications: Current Medications Acetaminophen (Tylenol) 650 mg PO Q4H PRN PRN Reason: Headache/Fever or Pain Acetaminophen/Codeine Phosphate (Tylenol #3) 1 tab PO Q6H PRN PRN Reason: Pain Last Admin: 08/05/17 04:51 Dose: 1 tab Albuterol Sulfate (Ventolin) 2.5 mg NEB [id number] PRN PRN Reason: Wheezing Last Admin: 08/04/17 05:06 Dose: 2.5 mg Albuterol/Ipratropium (Duoneb) 3 ml NEB [id number] PRN PRN Reason: SOB &/or Wheezing Last Admin: 08/07/17 02:15 Dose: 3 ml Albuterol/Ipratropium (Duoneb) 3 ml NEB [id number] Last Admin: 08/07/17 06:32 Dose: 3 ml Aspirin (Aspirin Chewable) 81 mg PO DAILY [facility] Last Admin: 08/07/17 09:02 Dose: Not Given Docusate Sodium (Colace) 100 mg PO BID [facility] Last Admin: 08/07/17 09:02 Dose: Not Given Famotidine (Pepcid) 20 mg PO QPM [facility] Last Admin: 08/06/17 21:04 Dose: 20 mg Ferrous Sulfate (Feosol) 325 mg PO DAILY [facility] Last Admin: 08/07/17 09:02 Dose: Not Given Finasteride (Proscar) 5 mg PO DAILY [facility] Last Admin: 08/07/17 09:03 Dose: Not Given Furosemide (Lasix) 40 mg SLOW IVP 0600,1400 [facility] Last Admin: 08/07/17 05:23 Dose: 40 mg Gabapentin (Neurontin) 600 mg PO TID [facility] Last Admin: 08/07/17 09:03 Dose: Not Given Guaifenesin/Dextromethorphan (Robitussin Dm) 15 ml PO Q4H PRN PRN Reason: Cough Last Admin: 08/06/17 09:34 Dose: 15 ml Levofloxacin 500 mg/ Device 100 mls @ 100 mls/hr IVPB 1000 [facility] Last Admin: 08/07/17 09:27 Dose: 100 mls Isosorbide Mononitrate (Imdur Er) 30 mg PO DAILY [facility] Last Admin: 08/07/17 09:03 Dose: Not Given Levothyroxine Sodium (Synthroid) 75 mcg PO 0600 [facility] Last Admin: 08/07/17 05:23 Dose: 75 mcg Lorazepam (Ativan) 0.5 mg SLOW IVP Q6H PRN PRN Reason: Anxiety/Agitation Last Admin: 08/06/17 21:05 Dose: 0.5 mg Magnesium Hydroxide (Milk Of Magnesium) 30 ml PO DAILYPRN PRN PRN Reason: Constipation Magnesium Oxide (Magnesium Oxide) 400 mg PO DAILY [facility] Last Admin: 08/07/17 09:03 Dose: Not Given Methylprednisolone Sodium Succinate (Solu-Medrol) 40 mg IVP Q6HR [facility] Last Admin: 08/07/17 05:23 Dose: 40 mg Multivitamins (Theragran) 1 tab PO DAILY [facility] Last Admin: 08/07/17 09:03 Dose: Not Given Polyethylene Glycol (Miralax) 17 gm PO BID [facility] Last Admin: 08/07/17 09:03 Dose: Not Given Potassium Chloride (K-Dur) 20 meq PO QAM-WM [facility] Last Admin: 08/07/17 09:02 Dose: Not Given Simethicone (Mylicon Chewable) 80 mg PO ACHS [facility] Last Admin: 08/07/17 09:02 Dose: Not Given Sodium Chloride (Flush - Normal Saline) 10 ml IVF Q12HR [facility] Last Admin: 08/07/17 09:29 Dose: 10 ml Sodium Chloride (Flush - Normal Saline) 10 ml IVF PRN PRN PRN Reason: Saline Flush Last Admin: 08/05/17 06:37 Dose: 10 ml Tamsulosin HCl (Flomax) 0.4 mg PO DAILY [facility] Last Admin: 08/07/17 09:03 Dose: Not Given Ticagrelor (Brilinta) 60 mg PO BID [facility] Last Admin: 08/07/17 09:04 Dose: Not Given
--- NOTE | 2017-08-07 11:43 | PRG ---
DATE OF SERVICE: 08/07/2017 TIME: 11:35 a.m. I spoke with the patient's son and brother at the bedside. The patient has declined in terms of resp iratory and mental status and is no longer able to make decisions for himself. It is clear that he i s dying and that further resuscitative measures would be futile. Given that the patient is now incom petent to make decisions, this is followed on the patient's son and he has agreed to make the patient full DNR. We will refocus our efforts towards comfort care. Order for morphine has been put on the patient's chart.
[2017-08-07] MEDS ORDERED: Morphine 4 MG/ML VIAL SLOW IVP PRN (11:45)
--- NOTE | 2017-08-07 14:08 | PRG ---
DATE OF SERVICE: 08/07/2017 Thirty-five minutes critical care time. SUBJECTIVE: Mr. Casillas was transferred to the CCU last night because of continued respiratory failu re. He was placed on BiPAP, but he does not like that. The patient reiterated to me today that he d id not want to be intubated in the event of acute respiratory failure. I spoke with his son over the phone for quite some time. His son was okay with that. However, the patient remains FULL CODE othe rwise. OBJECTIVE: VITAL SIGNS: His temperature is 98.8, pulse 124, blood pressure 183/104, 24 hour intake 480. HEENT: Unremarkable. NECK: No adenopathy, no JVD. LUNGS: Coarse wheezing bilaterally. CARDIOVASCULAR: S1, S2 tachycardic. ABDOMEN: Soft and nontender. EXTREMITIES: Edematous. ASSESSMENT: 1. Severe aortic stenosis. 2. Chronic obstructive pulmonary disease. 2. Acute on chronic respiratory failure. PLAN: The patient has severe comorbid conditions, which I do not think are fixable even with aggress ignacio care. I believe that this is a hopeless situation. I think we can continue BiPAP intermittently if that is what the patient wants. I am very adverse to putting him through cardiopulmonary resusci tation as I do not think it will do any good. He is receiving diuretic therapy, steroids and nebuliz ation treatments. Again, I do think his symptoms are responding to any form of treatment and i s imminent.
[2017-08-07 15:33] VITALS: TEMP 102
--- NOTE | 2017-08-07 17:08 | PDOC.CTH ---
Cardiology Progress Note - Subjective He became altered today. Family has made decision to do Hospice care. - Objective Vital Signs Temp Pulse Resp Pulse Ox 08/07/17 15:59 93 L 08/07/17 15:38 96 24 H 08/07/17 15:34 100 26 H 97 08/07/17 15:00 102 F H 08/07/17 09:00 98.8 F 08/07/17 08:00 98.8 F 130 H 24 H 86 L 08/07/17 06:15 123 H 26 H 100 08/07/17 06:02 98.8 F Admit Weight 189 lb 14.4 oz Weight 182 lb 8 oz 08/06/17 08/07/17 08/08/17 06:59 06:59 06:59 Intake Total 100 480 100 Output Total 0 Balance 100 480 100 - Physical Examination Lungs: other: (reduced breath sounds. ) Heart: RRR Abdomen: NT/ND Extremities: + edema B (2+) - Telemetry Telemetry Rhythm: S tach - Labs Result Diagrams: 08/06/17 02:02 08/07/17 07:14 Troponin/CKMB CK-MB (CK-2) 1.6 ng/mL (0-6.6) 08/03/17 08:33 Troponin I 0.094 ng/mL (< 0.028) H 08/03/17 20:20 - Assessment/Plan 1. Acute on chronic systolic heart failure 2. 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 3. CAD, s/p CABG in the past 4. Worsening CM, EF reduced as compared to 2 yrs ago. now at 20-25% 5. COPD exacerbation. 6. NSVT PLAN: - Agree with Hospice care. - Will sign off. Please call with any questions.
--- NOTE | 2017-08-07 20:44 | DIS ---
DATE OF ADMISSION: 08/03/2017 DATE OF : 08/07/2017 TIME OF : 4:10 p.m. SUMMARY HISTORY OF PRESENT ILLNESS/HOSPITAL COURSE: He is an 87-year-old male with a past medical history of chronic respiratory failure on home oxygen, COPD, CAD status post CABG, CHF, BPH, hyperlipidemia, CK D, mitral regurgitation, aortic regurgitation, aortic stenoses, who presented to the emergency room w ith a 3-day history of fever, productive cough, wheezing, shortness of breath, and extremity swelling . He reported progressively worsening shortness of breath as well. At the emergency room, he was fo und to be in some respiratory distress with respiratory rate ranging between 20-25 on nasal cannula o xygen. His BUN/creatinine were 22 and 1.68, which seems to be the patient's baseline; however, his B [employer] FRONT was markedly elevated at over 1400 higher than his previous numbers and initial troponin was 0.158 . Chest x-ray revealed stable chest without evidence of acute pulmonary process. EKG showed no sign s of acute ischemia. Physical examination reveals rales and crackles in the bilateral lung berrios with reduced breath soun ds. Lower extremity edema and erythema in his left lower extremity. His labs were mostly unremarkab le. He was admitted for acute on chronic CHF exacerbation and possible COPD exacerbation. He was st arted on diuretics, nebulizer therapy, antibiotics for possible pneumonia and continued on his oxygen therapy. He initially improved with therapy, but he became very wheezy and thought to be in overt C OPD exacerbation and was started on IV steroids. His nebulizer frequency was increased and he was mo nitored closely. Pulmonary and Cardiology were also consulted and the patient had end-of-life discus betzy held. Initially, he was adamant on remaining full code; however, he then decided to be a do-not -intubate, but he would like to be resuscitated. As the day went on, he became more short of breath, but eventually his oxygen requirement was escalated with the patient not requiring BiPAP. An ABG do ne showed pH of 7.34, pCO2 of 64 and pO2 of 200 on 50% BiPAP. This is largely unchanged from deepika s study in 05/2009 where his pCO2 was 65.5. Even with increased oxygen requirements, his saturation remained low in the 80s. He became progressively more lethargic and less responsive. His family was then called with his brother and [id number] coming to the hospital to see him. Eventually, antonio y decided to make the patient DNR and he peacefully at 1610 hours on 08/07/2017. DISCHARGE MEDICATIONS: None. PHYSICAL EXAMINATION: No corneal reflex, no respiratory effort or heart sounds. Pupils dilated and unresponsive to light. LABORATORY DATA: As stated in HPI/hospital course. IMAGING: Chest x-ray, vascular ultrasound of lower extremity which showed no DVTs. CONSULTS: Cardiology, Pulmonary, palliative care. CONDITION AT THIS DISCHARGE: . PROCEDURES: None. Discharge time 30 minutes including chart review and documentation.
== END 2017-08-07 18:09 | disposition expired ==
LOC: ERS 08:08 → 2NO 09:41 → CCU 08-07 06:07
PROVIDERS: ADMIT Internal Medicine; ATTEND Internal Medicine
PROC: 5A09357 Assistance with Respiratory Ventilation, Less than 24 Consecutive Hours, Continuous Positive Airway Pressure (ICD-10-PCS; principal; 2017-08-03)
DX: I13.0 Hypertensive heart and chronic kidney disease with heart failure and stage 1 through stage 4 chronic kidney disease, or unspecified chronic kidney disease (principal); I21.A1 Myocardial infarction type 2; J18.9 Pneumonia, unspecified organism; J96.20 Acute and chronic respiratory failure, unspecified whether with hypoxia or hypercapnia; I47.2 Ventricular tachycardia; N18.3 Chronic kidney disease, stage 3 (moderate); L03.116 Cellulitis of left lower limb; D69.6 Thrombocytopenia, unspecified; I50.43 Acute on chronic combined systolic (congestive) and diastolic (congestive) heart failure; J44.1 Chronic obstructive pulmonary disease with (acute) exacerbation; I48.91 Unspecified atrial fibrillation; I34.0 Nonrheumatic mitral (valve) insufficiency; I35.0 Nonrheumatic aortic (valve) stenosis; E03.9 Hypothyroidism, unspecified; E78.5 Hyperlipidemia, unspecified; Z95.1 Presence of aortocoronary bypass graft; I25.10 Atherosclerotic heart disease of native coronary artery without angina pectoris; N40.0 Benign prostatic hyperplasia without lower urinary tract symptoms; I35.1 Nonrheumatic aortic (valve) insufficiency; Z87.891 Personal history of nicotine dependence; Z91.11 Patient's noncompliance with dietary regimen; F03.90 Unspecified dementia, unspecified severity, without behavioral disturbance, psychotic disturbance, mood disturbance, and anxiety; I73.9 Peripheral vascular disease, unspecified; I42.9 Cardiomyopathy, unspecified; Z66 Do not resuscitate
CPT/HCPCS: 36415; 71045; 80048; 80053; 80069; 82553; 82805; 83605; 83690; 83735; 83880; 84443; 84484; 85014; 85018; 85025; 85049; 87040; 93005; 93306; 94640; 94660; 96374; 96375; A4216; G8996-GN-CL; G8997-GN-CJ; J1940; J1956; J2060; J2270; J2920; J3475; J7506; J7611; J7620